=== PATIENT | male | born 1940 | race Caucasian/White ===

== ENCOUNTER 2017-10-10 07:55 | Outpatient (POV) | payer MEDICARE, OTHER, SELFPAY | END 2017-10-10 12:06 | disposition home or self-care (01) | PROVIDERS: Visit Provider Podiatrist | DX: M20.42 Other hammer toe(s) (acquired), left foot (principal); B35.1 Tinea unguium; M25.572 Pain in left ankle and joints of left foot; L84 Corns and callosities | CPT/HCPCS: 99212 ==

== ENCOUNTER → 2017-11-08 | Day surgery (SDC) | payer MEDICARE, OTHER, SELFPAY | PROVIDERS: Family Provider Family Medicine; Visit Provider Internal Medicine | DX: I25.119 Atherosclerotic heart disease of native coronary artery with unspecified angina pectoris (principal); R94.39 Abnormal result of other cardiovascular function study; R06.09 Other forms of dyspnea | CPT/HCPCS: 80048; 85025; 93458; 99152; C1725; C1760; C1769; J1644; Q9967 ==

== ENCOUNTER → 2020-09-13 07:19 | Outpatient (CLI) | payer MEDICARE, OTHER, SELFPAY ==
--- NOTE | 2020-09-13 | CA_ITS ---
APPROVED REPORT Exam: Pharmacologic Technologist: Toya Delatorre Ht: 6 ft 1 in Wt: 195 lbs BSA: 2.13 m2 HR: 59 bpm BP: 122/71 mmHg Indications: Chest pain, CAD Medical History Medications: Omeprazole,,,,, Aspirin,,,,, Vitamin D3,,,,, GlUCOsamine,,,,, Stress Test Details Test: LEXISCAN HR Resting HR: 64 bpm Max Heart Rate (APMHR): 142 bpm Max HR Achieved: 93 bpm Target HR (85% APMHR): 120 bpm % of APMHR: 65 Recovery HR: 77 bpm BP Resting BP: 122.0/71.0 mmHg Max BP: 122.0/71.0 mmHg Recovery BP: 120.0/66.0 mmHg ECG Clinical Exercise duration: 04:00 min Highest Stage Achieved: Exercise capacity: 1.0 METs Stress ECG Conclusion Resting ECG: Sinus bradycardia, otherwise normal. Symptoms: Shortness of air, malaise, mild nausea. No chest pain. Arrhythmias/Ectopy: No significant changes. ST-T Changes: No significant changes. Conclusion: Unremarkable Lexiscan stress. Myoview images reported separately. Electronically signed by : Steven Mclain, 09/14/2020 05:41:04
--- NOTE | 2020-09-13 07:19 | NM_ITS ---
APPROVED REPORT Exam: Nuclear Stress Test Indication: Chest pain, Abnormal EKG Patient Location: Outpatient Stress Tech: Toya Delatorre [place] Tech:Ofelia Chung, YOLANDAT, RT (R)(N) Ht: 6 ft 1 in Wt: 195 lbs HR: 59 bpm BP: 122/71 mmHg BSA: 2.13 m2 BMI: 25.7 History: Chest pain, Abnormal EKG Procedure: Patient received a 0.4 mg of intravenous Lexiscan, resting heart rate 59 bpm, resting blood pressure 122/71 mmHg, with Lexiscan maximum heart rate achived was 91 bpm which is Less than 85 % of the maximum predicted heart rate and blood pressure was 100/59 mmHg. With Lexiscan, patient denied any complaint of chest pain. Electrocardiogram Resting electrocardiogram showed sinus rhythm nonspecific ST-T changes, with Lexiscan there is less than 1.[address] segment depression noted from the baseline EKG. The EKG portion of the Lexiscan Myoview is nondiagnostic. Cardiac Stress and Resting SPECT Images: Cardiac Stress and Resting SPECT images were obtained using technetium 99m Myoview 30.7 mCi stress and 10.59 mCi at rest. Gated SPECT for analysis of segmental wall motion and calculation of the ejection fraction also done. Cardiac stress and resting SPECT images show uniform myocardial activity without segmental perfusion abnormality, computer derived ejection fraction is 52% with no regional wall motion abnormality, right ventricle is mildly enlarged with normal contractility. Conclusion: 1. The EKG portion of the Lexiscan Myoview is nondiagnostic. 2. No scintigraphic evidence of reversible ischemia seen, computer derived ejection fraction is 52% with no regional wall motion abnormality, right ventricle is mildly enlarged with normal contractility. 3. Normal Lexiscan Myoview study. Electronically signed by : Steven Mclain, 09/14/2020 06:01:18
--- NOTE | 2020-09-13 07:33 | CA_ITS ---
APPROVED REPORT EXAM: Comprehensive 2D, Doppler, and color-flow Echocardiogram Clarity Developer: Adilia Lujan RDCS Ht: 6 ft 1 in Wt: 201lbs BSA: 2.16 BP: 115/57 mmHg Indications: ABN EKG CAD, CP 2D Dimensions LVOT 2.28 cm (M/F) 1.5-2.5 M-Mode Dimensions RVDd 2.53 cm (0.9-2.6) LA Diam 3.09 cm (1.9-4.0) LVDd 5.32 cm (3.5-5.7) Ao Diam 3.19 cm (2.0-3.7) LVDs 3.93 cm (3.5-5.7) IVSd 0.89 cm (0.6-1.1) PWd 1.11 cm (0.6-1.1) EF (Teich) 50.80% FS 26.10% EDV (Teich) 136.50 mL ESV (Teich) 67.10 mL LV Diastology E Decel Time 170.00 (160-240 msec) E/A Ratio 0.9 MED E' 6.80 (< 7 cm/sec) E'/MED E' Ratio 10.09 (>14) LAT E' 10.90 (<10 cm/sec) E/LAT E' Ratio 6.29 (>14) Mitral Valve MV E Max Jeff. 69.00 (40-130 cm/s) MV A Velocity 78.00 (40-130 cm/s) E/A Ratio 0.88 MV Decel. Time 170.00 (160-240 ms) MV PHT 50.00 ms Left Ventricle Left atrium is mildly enlarged, left ventricle is normal size, mild concentric left ventricular hypertrophy, visually estimated ejection fraction 55% with no regional wall motion abnormality, grade 1 diastolic dysfunction seen without tissue Doppler evidence of raise left atrial pressure. Right Ventricle Right atrium and right ventricle are normal size and contractility. Aortic Valve Aortic valve is minimally thickened and fibrosed, there is no aortic stenosis or aortic insufficiency. Mitral Valve Mitral valve is grossly normal, there is mild mitral regurgitation. Tricuspid Valve Tricuspid valve is grossly normal, there is mild tricuspid regurgitation, tricuspid regurgitation jet velocity is inadequate for calculation of the right ventricular systolic pressure. Pulmonic Valve Pulmonic valve is poorly visualized. Great Vessels Aortic root is normal size. Pericardium No significant pericardial effusion noted. Conclusion 1. Mildly enlarged left atrium, normal left ventricular size, mild concentric left ventricular hypertrophy, visually estimated ejection fraction 55% with no regional wall motion abnormality, grade 1 diastolic dysfunction seen without tissue Doppler evidence of raise left atrial pressure. 2. Mild mitral and tricuspid regurgitation. 3. No significant pericardial effusion noted. Electronically signed by : Steven Mclain, 09/14/2020 06:28:40
--- NOTE | 2020-09-13 09:08 | HMH.ITSHM ---
Current Home Medications as stated by this patient Osmel Bran or circulation representative. []ASA OMEPRAZOEL GLUCOSAMINE VITAMIN D3
== END ==
PROVIDERS: PCP Family Medicine; Visit Provider Urology
DX: R07.9 Chest pain, unspecified (principal); R94.31 Abnormal electrocardiogram [ECG] [EKG]
CPT/HCPCS: 78452; 93017; 93306; A9502; J2785

== ENCOUNTER → 2020-09-19 08:40 | Outpatient (CLI) | payer MEDICARE, OTHER, SELFPAY ==
[2020-09-19 08:54] LABS: Basophils % 0.2 % (0.1-2.0); Eosinophils # 0.1 K/mm3 (0.0-0.4); Eosinophils % 0.6 % (0.1-12.0); Hematocrit 47.5 % (42.0-52.0); Hemoglobin 15.4 g/dL (14.1-18.0); Lymphocytes # 1.3 K/mm3 (0.7-4.5); Lymphocytes % 15.6 % (10-50); Mean Corpuscular HGB Conc 32.3 g/dL (31.8-35.4); Mean Corpuscular Hemoglobin 30.4 pg (27.0-31.2); Mean Corpuscular Volume 94.1 fl (80-94); Mean Platelet Volume 8.2 fl (7.4-10.4); Monocytes # 0.7 K/mm3 (0.1-1.0); Monocytes % 8.3 % (1.7-9.3); Neutrophils # 6.1 K/mm3 (1.8-7.8); Neutrophils % 75.2 % (37.0-80.0); Platelet Count 170 K/mm3 (142-424); Red Blood Count 5.05 M/mm3 (4.60-6.20); Red Cell Distribution Width 13.7 % (11.5-17.5); White Blood Count 8.1 K/mm3 (4.8-10.8)
[2020-09-19 09:20] LABS: Chloride 103 mmol/L (98-107); Potassium 4.8 mmoL/L (3.5-5.1); Sodium 138 mmol/L (136-145)
[2020-09-19 09:22] LABS: Alanine Aminotransferase 19 U/L (12-78); Anion Gap 10.8 mEq/L (5-15); Aspartate Amino Transferase 23 U/L (17-59); Bilirubin,Unconjugated 0.5 mg/dL (0.0-1.1); Blood Urea Nitrogen 13 mg/dl (9-20); Carbon Dioxide 29 mmol/L (22.0-30.0); Estimated Glomerular Filt Rate 65 ml/min (>60); GFR (African American) 78 ML/MIN (>60)
[2020-09-19 09:23] LABS: Albumin Level 4.5 g/dl (3.5-5.0); Alkaline Phosphatase 67 U/L (38-126); Bilirubin,Direct 0.1 mg/dl (0.0-0.4); Bilirubin,Indirect 0.5 mg/dL (0.0-0.9); Bilirubin,Total 0.6 mg/dl (0.2-1.3); Calcium 9.8 mg/dl (8.4-10.2); Cholesterol 248 mg/dl (140-200); Glucose 108 mg/dl (74-100); HDL Cholesterol 50 mg/dl (40-60); Total Protein,Serum 7.3 g/dl (6.3-8.2); Triglycerides 175 mg/dl (30-150); VLDL Cholesterol 35 mg/dL (0-40)
[2020-09-19 09:34] LABS: Direct LDL Cholesterol 155.25 mg/dL (100-129)
== END ==
PROVIDERS: Visit Provider Urology
DX: R07.9 Chest pain, unspecified (principal); R94.31 Abnormal electrocardiogram [ECG] [EKG]
CPT/HCPCS: 36415; 80048; 80061; 80076; 85025

== ENCOUNTER → 2022-03-06 09:29 | Outpatient (CLI) | payer MEDICARE, OTHER, SELFPAY | PROVIDERS: Visit Provider Internal Medicine Gastroenterology | DX: Z01.812 Encounter for preprocedural laboratory examination (principal); Z11.52 Encounter for screening for COVID-19; R13.10 Dysphagia, unspecified | CPT/HCPCS: C9803; U0003; U0005 ==

== ENCOUNTER 2022-03-08 08:05 | Day surgery (SDC) | payer MEDICARE, OTHER, SELFPAY ==
[2022-03-01 11:58] VITALS: BMI 25.0
[2022-03-08 08:26] VITALS: BP 150/80; PULSE 63; RESP 18; TEMP 36.4; O2SAT 93
[2022-03-08 09:03] VITALS: O2SAT 93
--- NOTE | 2022-03-08 09:13 | HMH.SCOPE ---
- Procedure: Date: 03/08/22 Patient Date of :: 1940 Procedure Performed:: EGD and dilation Indications:: Dysphagia Performing Provider:: Margarita Hutchins MD Referring Provider:: Yao Garcia MD Sedation:: Propofol Procedure:: The gastroscope was gently passed through the incisoral orifice into the oral cavity and under direct visualization the esophagus was intubated. The endoscope was passed down the esophagus, through the stomach, and into the duodenum. Color, texture, mucosa, and anatomy of the esophagus, stomach, and duodenum were carefully examined with the scope. Findings:: Oropharynx: normal Esophagus: normal, no visual evidence of obstruction or stricture EG Junction: intact at 40 cm Cardia: normal Fundus: normal Body: normal Antrum: normal Duodenal bulb: normal Duodenum (second and third portion): normal Dysphagia treated with several passes of a 58F bougie dilator Impression: Symptomatic dysphagia treated with bougie dilation Recommendations:: Repeat dilation in about 3 years or so, sooner if clinically indicated. Complications:: None Estimated blood obtained (mL): 0
[2022-03-08 09:15] VITALS: BP 124/77; PULSE 79; RESP 18; TEMP 36.2; O2SAT 92
[2022-03-08 09:25] VITALS: BP 122/76; PULSE 72; RESP 16; O2SAT 98
[2022-03-08 09:35] VITALS: BP 130/77; PULSE 71; RESP 16; O2SAT 97
[2022-03-08 09:46] VITALS: BP 138/76; PULSE 63; RESP 16; TEMP 36.2; O2SAT 98
--- NOTE | 2022-03-08 11:50 | HMH.ANESCL ---
[facility] Anesthesia Checklist - Patient Identification Patient Identification: Arm Band, Verbal (Name & ) - Structural Data Admitted From: Home Planned Operative Procedure/s: Colonoscopy Consent for Planned Operative Procedure(s) Verified: Yes Verified Documents: Surgical Consent - NPO Status Verified Time NPO: 04:30 - Airway Assessment C-Spine Mobility Assessed: Yes TMJ Mobility Assessed: Yes - Neurological Assessment Level of Consciousness: Awake, Alert, Appropriate - Anesthesia Plan Anesthesia Risk discussed: Yes ASA Class: II Anesthesia Type: MAC [facility] History I have reviewed the patient's past medical history: Yes Medical History: Reports:: Cancer (skin), Coronary Artery Disease Denies:: Diabetes Mellitus Type 1, Diabetes Mellitus Type 2, Internal Pacemaker, MRSA, Seizures *Have you ever received a pneumonia vaccine?: Yes *Have you received a flu vaccine this season?: Yes Anesthesia experience/problems:: none Other Surgeries: Yes: Cardiac Catheterization, Skin Cancer Excision, Other. No: Pacemaker Amputation: No Fractures: No - *Social History Last grade of school completed: High school graduate Smoking Status: Never smoker Alcohol Intake: current Alcohol Intake Frequency:: holidays/special occasions only Substance Use Type: denies use *Occupational Status:: retired Housing: house Household Members: spouse *Travel in the last 8 weeks: None Family Hx:: Diabetes
== END 2022-03-08 09:55 | disposition home or self-care (01) ==
LOC: OUTP 08:07
PROVIDERS: PCP Family Medicine; Visit Provider Internal Medicine Gastroenterology
PROC: 0DJ08ZZ Inspection of Upper Intestinal Tract, Via Natural or Artificial Opening Endoscopic (ICD-10-PCS; CPT 43235; principal; 2022-03-08 09:00)
DX: R13.10 Dysphagia, unspecified (principal); I25.10 Atherosclerotic heart disease of native coronary artery without angina pectoris; Z85.828 Personal history of other malignant neoplasm of skin; Z83.3 Family history of diabetes mellitus; Z79.899 Other long term (current) drug therapy
CPT/HCPCS: 43249

== ENCOUNTER 2022-04-18 07:31 | Outpatient (RCR) | payer MEDICARE, OTHER, SELFPAY ==
--- NOTE | 2022-04-18 08:31 | HMH.SLDYSPHA ---
Speech & Language Evaluation Speech/Language Dysphagia Evaluation Start: 04/18/22 08:19 Freq: ONCE Status: Active Protocol: Document 04/18/22 08:19 ARIELDAMIAN (Rec: 04/18/22 08:31 LEVI [id number]) Dysphagia Assess/Goals/Plan Assessment Date of Evaluation: 04/18/22 Evaluation Type Initial Certification Assessment/Problems Sensation of food sticking Does Patient Qualify for Service No Qualify/Failure Comment Based on the results of the dysphagia evaluation, pt does not require skilled ST services at this time. Recommendations PHYSICIAN CERTIFICATION: The specified therapy services are required, authorized, and reviewed every 30 days. Diet Recommendations Normal Liquid Type Recommendations Normal/Thin SL Swallow Guidelines Alt bite w/sip thru meal Dysphagia Swallow Precautions/Strategies Sitting Upright (90 deg),Small Bites and Sips,Alternate Liquids/Solids Place Food on Either side of Mouth Additional Consults Recommended Other Comment GI Plan Pt/Guardian verbally ack understanding Yes of dx/prognosis/goals Pt/Guardian verbally ack understanding Yes of/consent to tx prog G -code Required No Education Instructions provided Dysphagia evaluation results discussed with pt who expressed understanding. Pt/Caregiver able to recall information Able to recall/restate Reinforcement needed No Speech & Language HPI History Present Illness Description of Patient Problem Pt is a 81 y.o male c/o food sticking. He reports he had an esophageal dilation done approximately 2-3 weeks ago and that his symptoms improved for 2-3 days before returning . He reports this has been going on for approximately 1 year and has progressively gotten worse. He reports he has more difficulty with dry foods i.e. bread and that he needs to use a liquid wash with each bolus. At times, he is unable to clear material and it will come back up. Denies any history of GERD or CVA. Oral mechanism exam is WFL. Rehab Services Assessed Speech therapy Is this evaluation r/t stroke?
== END 2022-04-18 07:35 | disposition home or self-care (01) ==
LOC: ST 07:31
PROVIDERS: PCP Family Medicine; Visit Provider Family Medicine
DX: R13.10 Dysphagia, unspecified (principal)
CPT/HCPCS: 92610

== ENCOUNTER → 2022-07-24 08:47 | Outpatient (CLI) | payer MEDICARE, OTHER, SELFPAY | PROVIDERS: PCP Family Medicine; Visit Provider Internal Medicine Gastroenterology | DX: U07.1 COVID-19 | CPT/HCPCS: C9803; U0003; U0005 ==

== ENCOUNTER 2022-09-06 07:48 | Day surgery (SDC) | payer MEDICARE, OTHER, SELFPAY ==
[2022-08-30 09:45] VITALS: BMI 24.4
[2022-09-06 07:58] VITALS: BP 159/60; PULSE 53; RESP 18; TEMP 36.1; O2SAT 99
[2022-09-06 09:00] VITALS: O2SAT 99
--- NOTE | 2022-09-06 09:10 | HMH.SCOPE ---
Procedure: Date: 09/06/22 Patient Date of :: 1940 Procedure Performed:: EGD & biopsies and bougie dilation Indications:: Dysphagia Performing Provider:: Margarita Hutchins MD Referring Provider:: Rolan Garcia MD Sedation:: Propofol Procedure:: The gastroscope was gently passed through the incisoral orifice into the oral cavity and under direct visualization the esophagus was intubated. The endoscope was passed down the esophagus, through the stomach, and into the duodenum. Color, texture, mucosa, and anatomy of the esophagus, stomach, and duodenum were carefully examined with the scope. Findings:: Oropharynx: normal Esophagus: Multiple whitish plaques noted in upper esophagus, biopsied. Bougie dilation with 58F dilator performed. EG Junction: intact at 40 cm Cardia: normal Fundus: normal Body: normal Antrum: normal Duodenal bulb: normal Duodenum (second and third portion): normal Impression: Esophageal candidiasis Specimens:: Esophagus Recommendations:: Therapy for esophageal candidiasis Repeat dilation in about THREE years or so Complications:: None Estimated blood obtained (mL): 0
[2022-09-06 09:11] VITALS: BP 133/80; PULSE 74; RESP 16; TEMP 36.3; O2SAT 100
[2022-09-06 09:21] VITALS: BP 135/81; PULSE 63; RESP 16; O2SAT 98
--- NOTE | 2022-09-06 09:22 | EXP.ANES.CKL ---
[facility] Medical History Fatigue Skin cancer Surgical History History of back surgery History of tonsillectomy Family History Other Family history of cancer Family history of diabetes mellitus type II Social History Smoking Status: Never smoker alcohol intake: current substance use type: denies use current occupational status: retired Travel in the last 8 weeks: None household members: spouse housing: house marital status: current occupational exposures/hazards: No caffeine: Yes special emir needs: No agree to transfusion: No do you feel safe at home: Yes victim of physical abuse: No victim of emotional abuse: No victim of sexual abuse: No would you like helpful sources: No [facility] Anesthesia Checklist Patient Identification Patient Identification: Arm Band and Verbal (Name & ) Structural Data Admitted From: Home Planned Operative Procedure/s: EGD Consent for Planned Operative Procedure(s) Verified: Yes Verified Documents: Surgical Consent NPO Status Verified Time NPO: 00:00 Airway Assessment C-Spine Mobility Assessed: Yes TMJ Mobility Assessed: Yes Dentition: Partials Neurological Assessment Level of Consciousness: Awake, Alert and Appropriate Anesthesia Plan Anesthesia Risk discussed: Yes ASA Class: II Anesthesia Type: MAC
[2022-09-06 09:31] VITALS: BP 117/74; PULSE 62; RESP 16; O2SAT 98
[2022-09-06 09:41] VITALS: BP 124/78; PULSE 63; RESP 16; TEMP 36.3; O2SAT 100
== END 2022-09-06 09:41 | disposition home or self-care (01) ==
PROVIDERS: PCP Family Medicine; Visit Provider Internal Medicine Gastroenterology
PROC: 0DJ08ZZ Inspection of Upper Intestinal Tract, Via Natural or Artificial Opening Endoscopic (ICD-10-PCS; CPT 43235; principal; 2022-09-06 09:00)
DX: B37.81 Candidal esophagitis (principal); R13.10 Dysphagia, unspecified; Z79.899 Other long term (current) drug therapy
CPT/HCPCS: 43239; 43248; 88305; 88312

== ENCOUNTER → 2023-02-01 12:23 | Outpatient (CLI) | payer MEDICARE, OTHER, SELFPAY ==
--- NOTE | 2023-02-01 12:34 | CT_ITS ---
FINAL REPORT TECHNIQUE: Pre and postcontrast axial imaging of the chest was obtained. Reformatted images were also obtained and reviewed. This study was performed with techniques to keep radiation doses as low as reasonably achievable (ALARA). Individualized dose reduction techniques using automated exposure control or adjustment of mA and/or kV according to the patient's size were employed. CLINICAL HISTORY: CHEST PAIN,ESOPHAGEAL DYSPHAGIA FINDINGS: Mediastinal vasculature is well opacified. There is a large, lobular, right paratracheal osman mass measuring 5.4 cm in AP and transverse dimension. A noncalcified nodule is seen in the posterior right lower lobe measuring 1.2 cm on image 44 of series 4. There is no pleural or pericardial effusion. There is no pneumothorax. There are several small hypervascular foci in the liver measuring less than 1 cm in greatest dimension. IMPRESSION: 1.2 cm right lower lung noncalcified nodule. 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 Small hypervascular foci in the liver. Recommend PET-CT for further evaluation. Reviewed, Interpreted and Dictated by Mark Hyman MD Transcribed by Edilma Lizarraga Authenticated and [facility]
[2023-02-01 12:48] LABS: Blood Urea Nitrogen 18 mg/dl (9-20); Estimated Glomerular Filt Rate 64 ml/min (>60); GFR (African American) 78 ML/MIN (>60)
== END ==
PROVIDERS: PCP Family Medicine; Visit Provider Family Medicine
DX: R07.9 Chest pain, unspecified (principal); R13.14 Dysphagia, pharyngoesophageal phase
CPT/HCPCS: 36415; 71270; 82565; 84520; Q9967

== ENCOUNTER → 2023-02-08 11:30 | Outpatient (CLI) | payer MEDICARE, OTHER, SELFPAY | PROVIDERS: PCP Family Medicine; Visit Provider Nurse Practitioner Family | DX: E78.2 Mixed hyperlipidemia (principal); I10 Essential (primary) hypertension; I25.10 Atherosclerotic heart disease of native coronary artery without angina pectoris; I51.9 Heart disease, unspecified | CPT/HCPCS: 78452; 93017; 93306; A9502; J2785 ==

== ENCOUNTER 2023-02-15 09:26 | Day surgery (SDC) | payer MEDICARE, OTHER, SELFPAY ==
[2023-02-12 13:59] VITALS: BMI 26.4
[2023-02-15] VITALS (11 sets, daily range): BP systolic 100–137; BP diastolic 61–77; PULSE 56–76; RESP 13–18; TEMP 36.1–43; O2SAT 93–99
--- NOTE | 2023-02-15 11:18 | EXP.ANES.CKL ---
[facility] Disclaimer: The information contained in this section may have been updated after the patient was seen, as this information can be updated by other users. Medical History Atypical chest pain Chest pain Coronary artery disease Diastolic dysfunction Fatigue Heart murmur History of cataract History of COVID-19 History of gastroesophageal reflux (GERD) Lung mass Skin cancer Surgical History History of back surgery History of tonsillectomy Family History Other Family history of cancer Family history of diabetes mellitus type II Social History Smoking Status: Never smoker alcohol intake: never substance use type: denies use current occupational status: retired Travel in the last 8 weeks: None household members: spouse housing: house marital status: current occupational exposures/hazards: No caffeine: Yes special emir needs: No agree to transfusion: No do you feel safe at home: Yes victim of physical abuse: No victim of emotional abuse: No victim of sexual abuse: No would you like helpful sources: No [facility] Anesthesia Checklist Patient Identification Patient Identification: Arm Band and Verbal (Name & ) Structural Data Admitted From: Home Planned Operative Procedure/s: EBUS Consent for Planned Operative Procedure(s) Verified: Yes Verified Documents: Surgical Consent NPO Status Verified Time NPO: 00:00 Additional verifications Anesthesia Reactions: No Hx Blood Transfusions: No Blood Transfusion Reaction: No Airway Assessment C-Spine Mobility Assessed: Yes TMJ Mobility Assessed: Yes Dentition: Partials Neurological Assessment Level of Consciousness: Awake, Alert and Appropriate Anesthesia Plan Anesthesia Risk discussed: Yes ASA Class: II Anesthesia Type: General
--- NOTE | 2023-02-15 11:57 | EXP.ANES.CKL ---
[facility] Disclaimer: The information contained in this section may have been updated after the patient was seen, as this information can be updated by other users. Medical History Atypical chest pain Chest pain Coronary artery disease Diastolic dysfunction Fatigue Heart murmur History of cataract History of COVID-19 History of gastroesophageal reflux (GERD) Lung mass Skin cancer Surgical History History of back surgery History of tonsillectomy Family History Other Family history of cancer Family history of diabetes mellitus type II Social History Smoking Status: Never smoker alcohol intake: never substance use type: denies use current occupational status: retired Travel in the last 8 weeks: None household members: spouse housing: house marital status: current occupational exposures/hazards: No caffeine: Yes special emir needs: No agree to transfusion: No do you feel safe at home: Yes victim of physical abuse: No victim of emotional abuse: No victim of sexual abuse: No would you like helpful sources: No [facility] Anesthesia Checklist Patient Identification Patient Identification: Arm Band and Verbal (Name & ) Structural Data Admitted From: Home Planned Operative Procedure/s: EBUS Consent for Planned Operative Procedure(s) Verified: Yes Verified Documents: Surgical Consent NPO Status Verified Time NPO: 00:00 Additional verifications Anesthesia Reactions: No Hx Blood Transfusions: No Blood Transfusion Reaction: No Airway Assessment C-Spine Mobility Assessed: Yes TMJ Mobility Assessed: Yes Dentition: Partials Neurological Assessment Level of Consciousness: Awake, Alert and Appropriate Anesthesia Plan Anesthesia Risk discussed: Yes ASA Class: II Anesthesia Type: General
--- NOTE | 2023-02-15 12:21 | EXP.BRONCH.N ---
Procedure: Date: 02/15/23 Patient Date of :: 1940 Procedure Performed:: Bronchoscopy airway examination, endobronchial ultrasound-guided fine-needle aspirate Indications:: Lymphadenopathy Performing Provider:: Leelee Leigh MD Referring Provider:: Dr:Yao Wheeler MD Sedation:: General anesthesia Procedure:: Bronchoscopy airway examination, endobronchial ultrasound-guided fine-needle aspirate: A clean EBUS bronchoscopy was advanced the ET tube and lymph node surveillance performed. Patient noted to have lymphadenopathy at station 4R. No other enlarged lymph node stations noted. Fine-needle aspiration was performed at the noted lymph node station with total of 7 passes performed, pathology at bedside confirmed adequate lymphoid tissue. Rapid onsite examination concerning for non-small cell lung cancer, will follow with final pathology result EBUS bronchoscopy was retracted and A clean DIAGNOSTIC bronchoscopy was advanced through the ET tube and airways were examined up to subsegmental bronchi. Airways appeared grossly normal, no evidence of mucoid secretions, mucous plugging active bleeding/old blood clots noted. Patient tolerated the procedure with no immediate acute complications. We will follow the patient in pulmonary clinic in 7 to 10 days. Findings:: Please see the procedure note Recommendations:: Please see the procedure note. Follow in pulmonary clinic in 5 to 7 days postprocedure Complications:: No acute immediate complication Estimated blood obtained (mL): 5
--- NOTE | 2023-02-15 12:32 | EXP.ANES.I ---
[facility] Anesthesia Record Part I Anesthesia Record I Intake, IV Amount: 800 Estimated blood loss (mL): 0 Urine output (mL): 0 Blood Pressure: 133/71 SaO2: 95 Pulse Rate: 76 Respiratory Rate: 13 Temperature: 97.2 F Patient is:: Drowsy and Oral/Nasal airway Stable to PACU at:: 12:25
--- NOTE | 2023-02-15 12:54 | XR_ITS ---
FINAL REPORT CLINICAL HISTORY: Bronchoscopy COMPARISON: 10/11/2017 FINDINGS: SINGLE-VIEW CHEST The heart size is normal. The mediastinum is normal. The lungs are clear. There are surgical clips in the left axilla. There is no pneumothorax. IMPRESSION: No acute cardiopulmonary process. Reviewed, Interpreted and Dictated by Mark Hyman MD Transcribed by Nicci Reno Authenticated and [facility]
--- NOTE | 2023-02-18 07:24 | EXP.ANES.II ---
[facility] Anesthesia Record Part II Anesthesia Record Part II Discharge Time: 12:55 Destination: Surgical Day Care (OP Surgery) PACU nurse assessment reviewed?: Yes Patient Condition:: Good Anesthesia Complications:: None Swallowing reflex intact?: Yes Cyanosis?: No Blood Pressure: 123/72 Pulse Rate: 73 Temperature: 97.2 F Mental Status: Alert & Oriented Pain level:: 0 Nausea and/or vomitting:: None Intake, IV Amount: 0
[2023-02-18 07:25] VITALS: BP 123/72; PULSE 73; TEMP 36.2
== END 2023-02-15 13:38 | disposition home or self-care (01) ==
PROVIDERS: PCP Family Medicine; Visit Provider Internal Medicine Pulmonary Disease
PROC: (CPT 31652; principal; 2023-02-15 10:45)
DX: R93.89 Abnormal findings on diagnostic imaging of other specified body structures (principal); R91.8 Other nonspecific abnormal finding of lung field; I10 Essential (primary) hypertension; E78.5 Hyperlipidemia, unspecified; I25.10 Atherosclerotic heart disease of native coronary artery without angina pectoris; Z87.891 Personal history of nicotine dependence; R59.1 Generalized enlarged lymph nodes
CPT/HCPCS: 31652; 71045; 88172; 88173; 88305; 88342; J2405

== ENCOUNTER 2023-02-19 10:23 | Day surgery (SDC) | payer MEDICARE, OTHER, SELFPAY ==
[2023-02-19] VITALS (12 sets, daily range): BP systolic 87–120; BP diastolic 49–69; PULSE 49–67; RESP 16–18; TEMP 36.9; O2SAT 92–100; BMI 25.9
--- NOTE | 2023-02-19 10:18 | IR_ITS ---
APPROVED REPORT PROCEDURES Selective coronary angiogram INDICATION Worsening angina pectoris Informed consent was obtained prior to the procedure. COMPLICATIONS None Estimated Blood Loss: Less than 10 ml TECHNIQUE One percent lidocaine used to anesthetize the right anterior aspect of the wrist. The right radial artery was accessed via the Seldinger technique. A 6 German sheath was placed in the right radial artery. 150 mg magnesium sulfate, 800 mcg of nitroglycerin, 1mg Lidocaine and 5000 U Heparin were given through the arterial sheath. The papa catheter was also used to perform left heart catheterization, left ventriculogram and selective coronary angiogram. At the end of the procedure the sheath was removed good hemostasis was achieved using Traclet band, patient was transferred to the postop holding area in stable condition. ANGIOGRAPHIC RESULTS The left main artery Has a distal consent concentric 30 to 40% stenosis The left anterior descending artery Has proximal 10 to 20% stenosis with a mid vessel 40% stenosis The circumflex artery Massively large and dominant with mild 10% luminal regularities The right coronary artery Vestigial normal The HULL ventriculogram reveals Not performed The left ventricular end-diastolic pressure Not measured IMPRESSION Moderate distal left main disease as described above Moderate mid LAD disease as described above PLAN 1. Aggressive risk factor modification 2. It is not appropriate to consider coronary artery bypass surgery or stenting at this time. If and when the left main artery advances coronary artery bypass surgery will be ideal 3. LDL less than 55 to be achieved with high intensity statin 4. Maximize antianginal medications Electronically signed by : Tucker Jalloh MD 02/19/2023 13:33:24
[2023-02-19 11:02] LABS: Basophils % 0.5 % (0.1-2.0); Eosinophils % 0.4 % (0.1-12.0); Hematocrit 45.3 % (42.0-52.0); Hemoglobin 14.6 g/dL (14.1-18.0); Lymphocytes # 1.4 K/mm3 (0.7-4.5); Lymphocytes % 15.7 % (10-50); Mean Corpuscular HGB Conc 32.2 g/dL (31.8-35.4); Mean Corpuscular Volume 93.1 fl (80-94); Mean Platelet Volume 8.2 fl (7.4-10.4); Monocytes # 0.7 K/mm3 (0.1-1.0); Monocytes % 8.4 % (1.7-9.3); Neutrophils # 6.6 K/mm3 (1.8-7.8); Neutrophils % 75.1 % (37.0-80.0); Platelet Count 191 K/mm3 (142-424); Red Blood Count 4.86 M/mm3 (4.60-6.20); Red Cell Distribution Width 13.5 % (11.5-17.5); White Blood Count 8.8 K/mm3 (4.8-10.8)
[2023-02-19 11:05] LABS: Chloride 101 mmol/L (98-107); Potassium 4.6 mmoL/L (3.5-5.1); Sodium 137 mmol/L (136-145)
[2023-02-19 11:07] LABS: Blood Urea Nitrogen 17 mg/dl (9-20); Creatinine Clearance Estimated 67 mL/min (50-200); Estimated Glomerular Filt Rate 64 ml/min (>60); GFR (African American) 78 ML/MIN (>60)
[2023-02-19 11:08] LABS: Anion Gap 11.6 mEq/L (5-15); Calcium 9.2 mg/dl (8.4-10.2); Carbon Dioxide 29 mmol/L (22.0-30.0); Glucose 95 mg/dl (74-100)
== END 2023-02-19 16:43 | disposition home or self-care (01) ==
PROVIDERS: PCP Family Medicine; Visit Provider Internal Medicine
DX: R07.9 Chest pain, unspecified (principal); R94.39 Abnormal result of other cardiovascular function study; I25.118 Atherosclerotic heart disease of native coronary artery with other forms of angina pectoris; Z86.16 Personal history of COVID-19; R94.31 Abnormal electrocardiogram [ECG] [EKG]; E78.5 Hyperlipidemia, unspecified; I10 Essential (primary) hypertension; Z79.899 Other long term (current) drug therapy
CPT/HCPCS: 80048; 85025; 93454; 99152; C1725; C1769; J1644; Q9967

== ENCOUNTER → 2023-02-25 08:41 | Outpatient (CLI) | payer MEDICARE, OTHER, SELFPAY ==
--- NOTE | 2023-02-25 08:41 | MR_ITS ---
FINAL REPORT CLINICAL HISTORY: Staging. FINDINGS: Multiplanar MR imaging of the brain was performed without and with contrast. There are multiple foci of increased T2 signal consistent with moderate chronic ischemic/gliotic change. There is no evidence of intracranial hemorrhage or mass. No abnormal extra-axial fluid collection is seen. The ventricular size is within normal limits. There is no evidence of shift of the midline structures. The posterior fossa and brainstem have an unremarkable appearance. No area of abnormal restricted diffusion is identified. On postcontrast imaging there is a right periventricular venous anomaly. Normal major vessel vascular flow voids are noted. IMPRESSION: No acute intracranial abnormality identified. Moderate chronic ischemic/gliotic change. Reviewed, Interpreted and Dictated by Hitesh Caruso III, MD Transcribed by Amilcar Bynum Authenticated and [facility]
== END ==
PROVIDERS: PCP Family Medicine; Visit Provider Internal Medicine Pulmonary Disease
DX: C78.00 Secondary malignant neoplasm of unspecified lung (principal)
CPT/HCPCS: 70553; A9576

== ENCOUNTER 2023-03-04 08:47 | Outpatient (CLI) | payer MEDICARE, OTHER, SELFPAY ==
[2023-03-04 08:51] VITALS: BMI 25.7
[2023-03-04 09:14] LABS: Basophils % 0.4 % (0.1-2.0); Eosinophils % 0.4 % (0.1-12.0); Hematocrit 44.3 % (42.0-52.0); Hemoglobin 14.4 g/dL (14.1-18.0); Lymphocytes # 0.9 K/mm3 (0.7-4.5); Lymphocytes % 13.7 % (10-50); Mean Corpuscular HGB Conc 32.6 g/dL (31.8-35.4); Mean Corpuscular Hemoglobin 30.4 pg (27.0-31.2); Mean Corpuscular Volume 93.4 fl (80-94); Mean Platelet Volume 8.5 fl (7.4-10.4); Monocytes # 0.6 K/mm3 (0.1-1.0); Monocytes % 8.9 % (1.7-9.3); Neutrophils % 76.7 % (37.0-80.0); Platelet Count 158 K/mm3 (142-424); Red Blood Count 4.75 M/mm3 (4.60-6.20); Red Cell Distribution Width 13.4 % (11.5-17.5); White Blood Count 6.6 K/mm3 (4.8-10.8)
[2023-03-04 09:22] LABS: Chloride 103 mmol/L (98-107); Potassium 4.4 mmoL/L (3.5-5.1); Sodium 138 mmol/L (136-145)
[2023-03-04 09:24] LABS: Alanine Aminotransferase 18 U/L (12-78); Aspartate Amino Transferase 24 U/L (17-59); Blood Urea Nitrogen 15 mg/dl (9-20); Creatinine Clearance Estimated 74 mL/min (50-200); Estimated Glomerular Filt Rate 72 ml/min (>60); GFR (African American) 87 ML/MIN (>60)
[2023-03-04 09:25] LABS: Albumin Level 4.2 g/dl (3.5-5.0); Albumin/Globulin Ratio 1.6 (1.1-1.8); Alkaline Phosphatase 61 U/L (38-126); Anion Gap 9.4 mEq/L (5-15); Bilirubin,Total 0.6 mg/dl (0.2-1.3); Calcium 9.2 mg/dl (8.4-10.2); Carbon Dioxide 30 mmol/L (22.0-30.0); Globulin 2.7 g/dL (1.3-3.2); Glucose 93 mg/dl (74-100); Total Protein,Serum 6.9 g/dl (6.3-8.2)
[2023-03-04 09:56] LABS: Thyroid Stimulating Hormone 2.62 uIU/mL (0.465-4.68)
[2023-03-04 10:00] VITALS: BP 109/55; PULSE 59; RESP 18; TEMP 36.9; O2SAT 97
[2023-03-04 10:15] VITALS: BP 107/58; PULSE 63; RESP 18; O2SAT 98
[2023-03-04 10:30] VITALS: BP 105/61; PULSE 62; RESP 18
[2023-03-05 17:14] LABS: Adrenocorticotropic Hormone 15.3 pg/mL (7.2-63.3)
== END 2023-03-04 10:40 | disposition home or self-care (01) ==
LOC: INF 08:48
PROVIDERS: PCP Family Medicine; Visit Provider Internal Medicine Medical Oncology
DX: C43.9 Malignant melanoma of skin, unspecified (principal); C78.00 Secondary malignant neoplasm of unspecified lung; Z79.899 Other long term (current) drug therapy; Z51.11 Encounter for antineoplastic chemotherapy
CPT/HCPCS: 80053; 82024; 82533; 84443; 85025; 96413; J9271

== ENCOUNTER 2023-03-28 08:24 | Outpatient (CLI) | payer MEDICARE, OTHER, SELFPAY ==
[2023-03-28 08:28] VITALS: BMI 26.2
[2023-03-28 08:54] LABS: Basophils % 0.4 % (0.1-2.0); Eosinophils % 0.6 % (0.1-12.0); Hematocrit 43.8 % (42.0-52.0); Hemoglobin 14.5 g/dL (14.1-18.0); Lymphocytes # 0.9 K/mm3 (0.7-4.5); Lymphocytes % 13.7 % (10-50); Mean Corpuscular HGB Conc 33.1 g/dL (31.8-35.4); Mean Corpuscular Hemoglobin 30.8 pg (27.0-31.2); Mean Corpuscular Volume 93.1 fl (80-94); Mean Platelet Volume 8.2 fl (7.4-10.4); Monocytes # 0.6 K/mm3 (0.1-1.0); Monocytes % 9.2 % (1.7-9.3); Neutrophils # 5.1 K/mm3 (1.8-7.8); Neutrophils % 76.1 % (37.0-80.0); Platelet Count 174 K/mm3 (142-424); Red Blood Count 4.71 M/mm3 (4.60-6.20); Red Cell Distribution Width 13.3 % (11.5-17.5); White Blood Count 6.6 K/mm3 (4.8-10.8)
[2023-03-28 09:05] LABS: Alanine Aminotransferase 24 U/L (12-78); Albumin Level 4.5 g/dl (3.5-5.0); Albumin/Globulin Ratio 1.6 (1.1-1.8); Alkaline Phosphatase 70 U/L (38-126); Anion Gap 12.7 mEq/L (5-15); Aspartate Amino Transferase 35 U/L (17-59); Bilirubin,Total 0.9 mg/dl (0.2-1.3); Blood Urea Nitrogen 14 mg/dl (9-20); Calcium 9.2 mg/dl (8.4-10.2); Carbon Dioxide 30 mmol/L (22.0-30.0); Chloride 99 mmol/L (98-107); Creatinine Clearance Estimated 68 mL/min (50-200); Estimated Glomerular Filt Rate 64 ml/min (>60); GFR (African American) 78 ML/MIN (>60); Globulin 2.9 g/dL (1.3-3.2); Glucose 96 mg/dl (74-100); Potassium 4.7 mmoL/L (3.5-5.1); Sodium 137 mmol/L (136-145); Total Protein,Serum 7.4 g/dl (6.3-8.2)
[2023-03-28 09:59] VITALS: BP 109/69; PULSE 58; RESP 20; TEMP 36.6; O2SAT 99
[2023-03-28 10:44] VITALS: BP 107/56; PULSE 56; RESP 20; O2SAT 99
== END 2023-03-28 10:55 | disposition home or self-care (01) ==
LOC: INF 08:24
PROVIDERS: PCP Family Medicine; Visit Provider Internal Medicine Medical Oncology
DX: C78.01 Secondary malignant neoplasm of right lung (principal); Z79.899 Other long term (current) drug therapy; Z85.820 Personal history of malignant melanoma of skin
CPT/HCPCS: 80053; 82024; 82533; 84443; 85025; 96413; J9271

== ENCOUNTER 2023-04-18 08:21 | Outpatient (CLI) | payer MEDICARE, OTHER, SELFPAY ==
[2023-04-18 08:25] VITALS: BMI 25.9
[2023-04-18 08:41] LABS: Basophils % 0.4 % (0.1-2.0); Eosinophils % 0.7 % (0.1-12.0); Hematocrit 44.5 % (42.0-52.0); Hemoglobin 14.1 g/dL (14.1-18.0); Lymphocytes % 18.3 % (10-50); Mean Corpuscular HGB Conc 31.7 g/dL (31.8-35.4); Mean Corpuscular Hemoglobin 29.7 pg (27.0-31.2); Mean Corpuscular Volume 93.6 fl (80-94); Mean Platelet Volume 8.5 fl (7.4-10.4); Monocytes # 0.6 K/mm3 (0.1-1.0); Neutrophils # 3.7 K/mm3 (1.8-7.8); Neutrophils % 69.6 % (37.0-80.0); Platelet Count 149 K/mm3 (142-424); Red Blood Count 4.75 M/mm3 (4.60-6.20); Red Cell Distribution Width 13.2 % (11.5-17.5); White Blood Count 5.3 K/mm3 (4.8-10.8)
[2023-04-18 08:48] LABS: Chloride 102 mmol/L (98-107); Potassium 4.6 mmoL/L (3.5-5.1); Sodium 138 mmol/L (136-145)
[2023-04-18 08:51] LABS: Alanine Aminotransferase 22 U/L (12-78); Albumin Level 4.4 g/dl (3.5-5.0); Albumin/Globulin Ratio 1.6 (1.1-1.8); Alkaline Phosphatase 61 U/L (38-126); Anion Gap 9.6 mEq/L (5-15); Aspartate Amino Transferase 29 U/L (17-59); Bilirubin,Total 0.7 mg/dl (0.2-1.3); Blood Urea Nitrogen 15 mg/dl (9-20); Calcium 9.3 mg/dl (8.4-10.2); Carbon Dioxide 31 mmol/L (22.0-30.0); Creatinine Clearance Estimated 68 mL/min (50-200); Estimated Glomerular Filt Rate 64 ml/min (>60); GFR (African American) 78 ML/MIN (>60); Globulin 2.8 g/dL (1.3-3.2); Glucose 94 mg/dl (74-100); Total Protein,Serum 7.2 g/dl (6.3-8.2)
[2023-04-18 09:22] LABS: Thyroid Stimulating Hormone 1.66 uIU/mL (0.465-4.68)
[2023-04-18 09:52] VITALS: BP 147/69; PULSE 77; RESP 18; TEMP 36.6; O2SAT 98
[2023-04-18 10:10] VITALS: BP 134/70; PULSE 67
[2023-04-18 10:25] VITALS: BP 124/71; PULSE 64
[2023-04-18 10:32] VITALS: BP 125/60; PULSE 60; RESP 18; TEMP 36.8; O2SAT 98
[2023-04-19 14:22] LABS: Adrenocorticotropic Hormone 22.5 pg/mL (7.2-63.3)
== END 2023-04-18 10:33 | disposition home or self-care (01) ==
LOC: INF 08:22
PROVIDERS: PCP Family Medicine; Visit Provider Internal Medicine Medical Oncology
DX: Z51.11 Encounter for antineoplastic chemotherapy (principal); C78.01 Secondary malignant neoplasm of right lung; Z79.899 Other long term (current) drug therapy
CPT/HCPCS: 80053; 82024; 82533; 84443; 85025; 96413; J9271

== ENCOUNTER 2023-05-09 08:24 | Outpatient (CLI) | payer MEDICARE, OTHER, SELFPAY ==
[2023-05-09 08:32] VITALS: BMI 25.7
[2023-05-09 09:10] LABS: Alanine Aminotransferase 22 U/L (12-78); Albumin Level 4.2 g/dl (3.5-5.0); Albumin/Globulin Ratio 1.4 (1.1-1.8); Alkaline Phosphatase 78 U/L (38-126); Anion Gap 13.7 mEq/L (5-15); Aspartate Amino Transferase 31 U/L (17-59); Bilirubin,Total 0.6 mg/dl (0.2-1.3); Blood Urea Nitrogen 14 mg/dl (9-20); Calcium 8.8 mg/dl (8.4-10.2); Carbon Dioxide 28 mmol/L (22.0-30.0); Chloride 103 mmol/L (98-107); Creatinine Clearance Estimated 74 mL/min (50-200); Estimated Glomerular Filt Rate 72 ml/min (>60); GFR (African American) 87 ML/MIN (>60); Globulin 2.9 g/dL (1.3-3.2); Glucose 96 mg/dl (74-100); Potassium 4.7 mmoL/L (3.5-5.1); Sodium 140 mmol/L (136-145); Total Protein,Serum 7.1 g/dl (6.3-8.2)
[2023-05-09 09:16] LABS: Basophils % 0.4 % (0.1-2.0); Eosinophils % 0.7 % (0.1-12.0); Hematocrit 45.5 % (42.0-52.0); Hemoglobin 14.2 g/dL (14.1-18.0); Lymphocytes # 0.9 K/mm3 (0.7-4.5); Lymphocytes % 14.2 % (10-50); Mean Corpuscular HGB Conc 31.3 g/dL (31.8-35.4); Mean Corpuscular Hemoglobin 29.4 pg (27.0-31.2); Mean Corpuscular Volume 93.9 fl (80-94); Mean Platelet Volume 8.3 fl (7.4-10.4); Monocytes # 0.6 K/mm3 (0.1-1.0); Monocytes % 10.1 % (1.7-9.3); Neutrophils # 4.7 K/mm3 (1.8-7.8); Neutrophils % 74.6 % (37.0-80.0); Platelet Count 155 K/mm3 (142-424); Red Blood Count 4.85 M/mm3 (4.60-6.20); Red Cell Distribution Width 13.2 % (11.5-17.5); White Blood Count 6.3 K/mm3 (4.8-10.8)
[2023-05-09 09:41] LABS: Thyroid Stimulating Hormone 1.74 uIU/mL (0.465-4.68)
[2023-05-09 09:58] VITALS: BP 121/62; PULSE 62; RESP 18; TEMP 36.7; O2SAT 99
[2023-05-09 10:50] VITALS: BP 109/64; PULSE 56; RESP 18; O2SAT 99
[2023-05-10 14:13] LABS: Adrenocorticotropic Hormone 11.7 pg/mL (7.2-63.3)
== END 2023-05-09 10:50 | disposition home or self-care (01) ==
LOC: INF 08:25
PROVIDERS: PCP Family Medicine; Visit Provider Internal Medicine Medical Oncology
DX: Z79.899 Other long term (current) drug therapy; Z51.11 Encounter for antineoplastic chemotherapy; C78.01 Secondary malignant neoplasm of right lung
CPT/HCPCS: 80053; 82024; 82533; 84443; 85025; 96413; J9271

== ENCOUNTER 2023-05-31 08:21 | Outpatient (CLI) | payer MEDICARE, OTHER, SELFPAY ==
[2023-05-31 08:26] VITALS: BMI 25.7
[2023-05-31 09:13] LABS: Alanine Aminotransferase 20 U/L (12-78); Albumin Level 4.3 g/dl (3.5-5.0); Albumin/Globulin Ratio 1.5 (1.1-1.8); Alkaline Phosphatase 68 U/L (38-126); Anion Gap 7.5 mEq/L (5-15); Aspartate Amino Transferase 26 U/L (17-59); Bilirubin,Total 0.6 mg/dl (0.2-1.3); Blood Urea Nitrogen 13 mg/dl (9-20); Calcium 9.3 mg/dl (8.4-10.2); Carbon Dioxide 29 mmol/L (22.0-30.0); Chloride 107 mmol/L (98-107); Creatinine Clearance Estimated 66 mL/min (50-200); Estimated Glomerular Filt Rate 64 ml/min (>60); GFR (African American) 78 ML/MIN (>60); Globulin 2.8 g/dL (1.3-3.2); Glucose 97 mg/dl (74-100); Potassium 4.5 mmoL/L (3.5-5.1); Sodium 139 mmol/L (136-145); Total Protein,Serum 7.1 g/dl (6.3-8.2)
[2023-05-31 10:20] VITALS: BP 121/72; PULSE 58; RESP 17; O2SAT 98
[2023-05-31 10:35] VITALS: BP 114/64; PULSE 60; RESP 16
[2023-05-31 10:50] VITALS: BP 112/62; PULSE 57; RESP 16
[2023-05-31 11:10] LABS: Hemoglobin 14.1 g/dL (14.1-18.0); Red Blood Count 4.71 M/mm3 (4.60-6.20); White Blood Count 6.6 K/mm3 (4.8-10.8)
[2023-05-31 11:11] LABS: Basophils % 0.3 % (0.1-2.0); Eosinophils % 0.3 % (0.1-12.0); Hematocrit 42.6 % (42.0-52.0); Lymphocytes # 0.8 K/mm3 (0.7-4.5); Lymphocytes % 11.3 % (10-50); Mean Corpuscular HGB Conc 33.2 g/dL (31.8-35.4); Mean Corpuscular Hemoglobin 29.9 pg (27.0-31.2); Mean Corpuscular Volume 90.2 fl (80-94); Monocytes # 0.7 K/mm3 (0.1-1.0); Monocytes % 10.9 % (1.7-9.3); Neutrophils # 5.1 K/mm3 (1.8-7.8); Neutrophils % 76.9 % (37.0-80.0); Platelet Count 146 K/mm3 (142-424); Red Cell Distribution Width 12.7 % (11.5-17.5)
[2023-06-01 13:09] LABS: Adrenocorticotropic Hormone 19.6 pg/mL (7.2-63.3)
== END 2023-05-31 11:10 | disposition home or self-care (01) ==
LOC: INF 08:22
PROVIDERS: PCP Family Medicine; Visit Provider Internal Medicine Medical Oncology
DX: Z79.899 Other long term (current) drug therapy; C43.9 Malignant melanoma of skin, unspecified; C78.00 Secondary malignant neoplasm of unspecified lung
CPT/HCPCS: 80053; 82024; 82533; 84443; 85025; 96413; J9271

== ENCOUNTER → 2023-06-03 11:11 | Outpatient (CLI) | payer MEDICARE, OTHER, SELFPAY ==
--- NOTE | 2023-06-03 11:15 | CT_ITS ---
FINAL REPORT TECHNIQUE: Axial CT of the abdomen and pelvis, without and with IV contrast. CLINICAL HISTORY: MELANOMA FINDINGS: Abdomen: Lung bases are clear. There is a known hypervascular right anterior lesion in the liver noted on a prior CT of January. That lesion is only faintly seen on the chest CT and not seen on the abdominal CT today due to earlier free phase imaging. Favor a benign vascular lesion. The spleen, pancreas and adrenal glands are unremarkable. Precontrast imaging shows no renal stone disease. Postcontrast imaging of the kidneys shows a 4 mm right posterior renal low-density, probable cyst although size limits evaluation. No bowel obstruction or fluid collection is seen. Pelvis: The appendix is not visualized. Pelvic bowel loops are remarkable for a large amount of stool. No fluid collection or adenopathy is seen. IMPRESSION: Known hypervascular right anterior liver lesion not well seen on today's exam secondary to earlier phase imaging. Favor a benign vascular lesion. 4 mm posterior right renal probable cyst although small size limits evaluation. Large stool burden. Reviewed, Interpreted and Dictated by Jeff Chaparro MD Transcribed by Jacklyn Aly Authenticated and [facility]
--- NOTE | 2023-06-03 11:15 | CT_ITS ---
FINAL REPORT TECHNIQUE: Pre and postcontrast axial imaging of the chest was obtained. Reformatted images were also obtained and reviewed. This study was performed with techniques to keep radiation dose as low as reasonably achievable (ALARA). Individualized dose reduction techniques using automated exposure control or adjustment of mA and/or kV according to the patient's size were employed. CLINICAL HISTORY: MELANOMA COMPARISON: 02/01/2023 FINDINGS: There is a right lower lobe nodule present, measuring 13 x 10 mm in size, which measured 12 x 11 mm in size on the prior CT of January. This is essentially unchanged in appearance. There is a 7 mm right lower lobe nodule, also unchanged. The left lung is clear. There are lobular right paratracheal nodes, on today's exam measuring 48 x 45 mm, previously 50 x 45 mm. No axillary adenopathy is seen. No pleural effusion is present. IMPRESSION: Stable right pulmonary and mediastinal metastases in this patient with melanoma. Reviewed, Interpreted and Dictated by Jeff Chaparro MD Transcribed by Jacklyn Aly Authenticated and [facility]
== END ==
PROVIDERS: PCP Family Medicine; Visit Provider Internal Medicine Medical Oncology
DX: C43.9 Malignant melanoma of skin, unspecified (principal)
CPT/HCPCS: 71270; 74178; Q9967

== ENCOUNTER → 2023-06-04 09:24 | Outpatient (CLI) | payer MEDICARE, OTHER, SELFPAY ==
[2023-06-04 10:32] LABS: Bilirubin,Unconjugated 0.4 mg/dL (0.0-1.1)
[2023-06-04 10:33] LABS: Alanine Aminotransferase 19 U/L (12-78); Albumin Level 4.4 g/dl (3.5-5.0); Alkaline Phosphatase 69 U/L (38-126); Aspartate Amino Transferase 26 U/L (17-59); Bilirubin,Direct 0.3 mg/dl (0.0-0.4); Bilirubin,Indirect 0.4 mg/dL (0.0-0.9); Bilirubin,Total 0.7 mg/dl (0.2-1.3); Chol/HDL Ratio 6.6 (1-3.5); Cholesterol 257 mg/dl (140-200); HDL Cholesterol 39 mg/dl (40-60); Total Protein,Serum 7.2 g/dl (6.3-8.2); Triglycerides 237 mg/dl (30-150); VLDL Cholesterol 47 mg/dL (0-40)
[2023-06-04 10:44] LABS: Direct LDL Cholesterol 150.27 mg/dL (100-129)
== END ==
PROVIDERS: PCP Family Medicine; Visit Provider Nurse Practitioner
DX: I25.10 Atherosclerotic heart disease of native coronary artery without angina pectoris; E78.5 Hyperlipidemia, unspecified; I11.9 Hypertensive heart disease without heart failure
CPT/HCPCS: 80061; 80076

== ENCOUNTER 2023-06-21 10:18 | Outpatient (CLI) | payer MEDICARE, OTHER, SELFPAY ==
[2023-06-21 10:22] VITALS: BMI 25.7
[2023-06-21 10:45] LABS: Chloride 103 mmol/L (98-107)
[2023-06-21 10:46] LABS: Basophils % 0.5 % (0.1-2.0); Eosinophils % 0.5 % (0.1-12.0); Hematocrit 44.9 % (42.0-52.0); Hemoglobin 14.5 g/dL (14.1-18.0); Lymphocytes # 1.1 K/mm3 (0.7-4.5); Lymphocytes % 16.7 % (10-50); Mean Corpuscular HGB Conc 32.2 g/dL (31.8-35.4); Mean Corpuscular Hemoglobin 29.4 pg (27.0-31.2); Mean Corpuscular Volume 91.3 fl (80-94); Mean Platelet Volume 8.7 fl (7.4-10.4); Monocytes # 0.7 K/mm3 (0.1-1.0); Monocytes % 10.6 % (1.7-9.3); Neutrophils # 4.7 K/mm3 (1.8-7.8); Neutrophils % 71.7 % (37.0-80.0); Platelet Count 165 K/mm3 (142-424); Potassium 4.6 mmoL/L (3.5-5.1); Red Blood Count 4.92 M/mm3 (4.60-6.20); Red Cell Distribution Width 13.5 % (11.5-17.5); Sodium 138 mmol/L (136-145); White Blood Count 6.6 K/mm3 (4.8-10.8)
[2023-06-21 10:48] LABS: Alanine Aminotransferase 22 U/L (12-78); Aspartate Amino Transferase 26 U/L (17-59); Blood Urea Nitrogen 15 mg/dl (9-20); Creatinine Clearance Estimated 66 mL/min (50-200); Estimated Glomerular Filt Rate 64 ml/min (>60); GFR (African American) 78 ML/MIN (>60)
[2023-06-21 10:49] LABS: Albumin Level 4.3 g/dl (3.5-5.0); Albumin/Globulin Ratio 1.4 (1.1-1.8); Alkaline Phosphatase 75 U/L (38-126); Anion Gap 9.6 mEq/L (5-15); Bilirubin,Total 0.7 mg/dl (0.2-1.3); Calcium 9.7 mg/dl (8.4-10.2); Carbon Dioxide 30 mmol/L (22.0-30.0); Globulin 3.1 g/dL (1.3-3.2); Glucose 99 mg/dl (74-100); Total Protein,Serum 7.4 g/dl (6.3-8.2)
[2023-06-21 11:20] LABS: Thyroid Stimulating Hormone 2.58 uIU/mL (0.465-4.68)
[2023-06-21 11:48] VITALS: BP 120/62; PULSE 58; RESP 18; TEMP 36.7; O2SAT 98
[2023-06-21 12:35] VITALS: BP 112/72; PULSE 56; RESP 18; O2SAT 98
[2023-06-22 15:10] LABS: Adrenocorticotropic Hormone 18.5 pg/mL (7.2-63.3)
== END 2023-06-21 12:41 | disposition home or self-care (01) ==
LOC: INF 10:19
PROVIDERS: PCP Family Medicine; Visit Provider Internal Medicine Medical Oncology
DX: R91.8 Other nonspecific abnormal finding of lung field (principal); Z79.899 Other long term (current) drug therapy; Z51.11 Encounter for antineoplastic chemotherapy; Z85.820 Personal history of malignant melanoma of skin; C78.01 Secondary malignant neoplasm of right lung
CPT/HCPCS: 80053; 82024; 82533; 84443; 85025; 96413; J9271

== ENCOUNTER 2023-07-11 09:27 | Outpatient (CLI) | payer MEDICARE, OTHER, SELFPAY ==
[2023-07-11 09:32] VITALS: BMI 25.7
[2023-07-11 10:00] LABS: Basophils % 0.4 % (0.1-2.0); Eosinophils % 0.5 % (0.1-12.0); Hematocrit 42.8 % (42.0-52.0); Hemoglobin 14.1 g/dL (14.1-18.0); Lymphocytes % 14.3 % (10-50); Mean Corpuscular HGB Conc 32.8 g/dL (31.8-35.4); Mean Corpuscular Hemoglobin 29.8 pg (27.0-31.2); Mean Corpuscular Volume 90.9 fl (80-94); Mean Platelet Volume 8.4 fl (7.4-10.4); Monocytes # 0.6 K/mm3 (0.1-1.0); Monocytes % 8.7 % (1.7-9.3); Neutrophils # 5.2 K/mm3 (1.8-7.8); Platelet Count 145 K/mm3 (142-424); Red Blood Count 4.71 M/mm3 (4.60-6.20); Red Cell Distribution Width 13.5 % (11.5-17.5); White Blood Count 6.8 K/mm3 (4.8-10.8)
[2023-07-11 10:59] LABS: Alanine Aminotransferase 19 U/L (12-78); Albumin Level 4.1 g/dl (3.5-5.0); Albumin/Globulin Ratio 1.6 (1.1-1.8); Alkaline Phosphatase 65 U/L (38-126); Anion Gap 12.4 mEq/L (5-15); Aspartate Amino Transferase 26 U/L (17-59); Bilirubin,Total 0.6 mg/dl (0.2-1.3); Blood Urea Nitrogen 17 mg/dl (9-20); Carbon Dioxide 28 mmol/L (22.0-30.0); Chloride 104 mmol/L (98-107); Creatinine Clearance Estimated 66 mL/min (50-200); Estimated Glomerular Filt Rate 64 ml/min (>60); GFR (African American) 78 ML/MIN (>60); Globulin 2.5 g/dL (1.3-3.2); Glucose 87 mg/dl (74-100); Potassium 4.4 mmoL/L (3.5-5.1); Sodium 140 mmol/L (136-145); Total Protein,Serum 6.6 g/dl (6.3-8.2)
[2023-07-11 11:06] VITALS: BP 112/66; PULSE 56; RESP 18; TEMP 36.6; O2SAT 99
[2023-07-11 12:00] VITALS: BP 126/80; PULSE 57; RESP 18; O2SAT 99
[2023-07-12 14:12] LABS: Adrenocorticotropic Hormone 18.8 pg/mL (7.2-63.3)
== END 2023-07-11 12:00 | disposition home or self-care (01) ==
LOC: INF 09:28
PROVIDERS: PCP Family Medicine; Visit Provider Internal Medicine Medical Oncology
DX: Z79.899 Other long term (current) drug therapy; C78.01 Secondary malignant neoplasm of right lung
CPT/HCPCS: 80053; 82024; 82533; 84443; 85025; 96413; J9271

== ENCOUNTER 2023-08-01 08:46 | Outpatient (CLI) | payer MEDICARE, OTHER, SELFPAY ==
[2023-08-01 08:54] VITALS: BMI 25.9
[2023-08-01 09:13] LABS: Chloride 104 mmol/L (98-107); Potassium 4.4 mmoL/L (3.5-5.1); Sodium 140 mmol/L (136-145)
[2023-08-01 09:14] LABS: Basophils % 0.5 % (0.1-2.0); Eosinophils % 0.6 % (0.1-12.0); Hematocrit 46.9 % (42.0-52.0); Hemoglobin 14.9 g/dL (14.1-18.0); Lymphocytes % 15.5 % (10-50); Mean Corpuscular HGB Conc 31.7 g/dL (31.8-35.4); Mean Corpuscular Hemoglobin 29.1 pg (27.0-31.2); Mean Corpuscular Volume 91.8 fl (80-94); Mean Platelet Volume 8.5 fl (7.4-10.4); Monocytes # 0.6 K/mm3 (0.1-1.0); Monocytes % 9.9 % (1.7-9.3); Neutrophils # 4.7 K/mm3 (1.8-7.8); Neutrophils % 73.5 % (37.0-80.0); Platelet Count 161 K/mm3 (142-424); Red Blood Count 5.11 M/mm3 (4.60-6.20); Red Cell Distribution Width 13.6 % (11.5-17.5); White Blood Count 6.5 K/mm3 (4.8-10.8)
[2023-08-01 09:15] LABS: Alanine Aminotransferase 23 U/L (12-78); Aspartate Amino Transferase 30 U/L (17-59); Blood Urea Nitrogen 15 mg/dl (9-20); Creatinine Clearance Estimated 67 mL/min (50-200); Estimated Glomerular Filt Rate 64 ml/min (>60); GFR (African American) 78 ML/MIN (>60)
[2023-08-01 09:16] LABS: Albumin Level 4.2 g/dl (3.5-5.0); Albumin/Globulin Ratio 1.4 (1.1-1.8); Alkaline Phosphatase 61 U/L (38-126); Anion Gap 11.4 mEq/L (5-15); Bilirubin,Total 0.7 mg/dl (0.2-1.3); Calcium 9.2 mg/dl (8.4-10.2); Carbon Dioxide 29 mmol/L (22.0-30.0); Globulin 3.1 g/dL (1.3-3.2); Glucose 103 mg/dl (74-100); Total Protein,Serum 7.3 g/dl (6.3-8.2)
[2023-08-01 09:48] LABS: Thyroid Stimulating Hormone 2.46 uIU/mL (0.465-4.68)
[2023-08-01 10:08] VITALS: BP 112/62; PULSE 69; RESP 18; TEMP 36.6; O2SAT 97
[2023-08-01 10:50] VITALS: BP 98/64; PULSE 73; RESP 18; O2SAT 99
[2023-08-02 14:20] LABS: Adrenocorticotropic Hormone 13.1 pg/mL (7.2-63.3)
== END 2023-08-01 10:50 | disposition home or self-care (01) ==
LOC: INF 08:48
PROVIDERS: PCP Family Medicine; Visit Provider Internal Medicine Medical Oncology
DX: Z85.820 Personal history of malignant melanoma of skin (principal); Z79.899 Other long term (current) drug therapy
CPT/HCPCS: 80053; 82024; 82533; 84443; 85025; 96413; J9271

== ENCOUNTER 2023-08-22 08:47 | Outpatient (CLI) | payer MEDICARE, OTHER, SELFPAY ==
[2023-08-22 08:51] VITALS: BMI 25.9
[2023-08-22 09:22] LABS: Alanine Aminotransferase 23 U/L (12-78); Albumin Level 4.4 g/dl (3.5-5.0); Albumin/Globulin Ratio 1.3 (1.1-1.8); Alkaline Phosphatase 62 U/L (38-126); Anion Gap 11.5 mEq/L (5-15); Aspartate Amino Transferase 31 U/L (17-59); Bilirubin,Total 0.7 mg/dl (0.2-1.3); Blood Urea Nitrogen 15 mg/dl (9-20); Calcium 9.6 mg/dl (8.4-10.2); Carbon Dioxide 30 mmol/L (22.0-30.0); Chloride 101 mmol/L (98-107); Creatinine Clearance Estimated 73 mL/min (50-200); Estimated Glomerular Filt Rate 72 ml/min (>60); GFR (African American) 87 ML/MIN (>60); Globulin 3.3 g/dL (1.3-3.2); Glucose 101 mg/dl (74-100); Potassium 4.5 mmoL/L (3.5-5.1); Sodium 138 mmol/L (136-145); Total Protein,Serum 7.7 g/dl (6.3-8.2)
[2023-08-22 09:24] LABS: Basophils % 0.4 % (0.1-2.0); Eosinophils % 0.5 % (0.1-12.0); Hematocrit 43.4 % (42.0-52.0); Hemoglobin 14.7 g/dL (14.1-18.0); Mean Corpuscular HGB Conc 33.8 g/dL (31.8-35.4); Mean Corpuscular Hemoglobin 31.5 pg (27.0-31.2); Mean Corpuscular Volume 93.1 fl (80-94); Mean Platelet Volume 7.8 fl (7.4-10.4); Monocytes # 0.6 K/mm3 (0.1-1.0); Monocytes % 8.1 % (1.7-9.3); Neutrophils # 5.5 K/mm3 (1.8-7.8); Platelet Count 157 K/mm3 (142-424); Red Blood Count 4.66 M/mm3 (4.60-6.20); Red Cell Distribution Width 13.6 % (11.5-17.5); White Blood Count 7.2 K/mm3 (4.8-10.8)
[2023-08-22 09:53] LABS: Thyroid Stimulating Hormone 2.62 uIU/mL (0.465-4.68)
[2023-08-22 10:40] VITALS: BP 121/64; PULSE 64; RESP 18; TEMP 36.4; O2SAT 98
[2023-08-22 11:30] VITALS: BP 104/56; PULSE 86; RESP 18; O2SAT 99
[2023-08-23 13:10] LABS: Adrenocorticotropic Hormone 27.6 pg/mL (7.2-63.3)
== END 2023-08-22 11:30 | disposition home or self-care (01) ==
LOC: INF 08:47
PROVIDERS: PCP Family Medicine; Visit Provider Internal Medicine Medical Oncology
DX: C78.00 Secondary malignant neoplasm of unspecified lung (principal); Z79.899 Other long term (current) drug therapy
CPT/HCPCS: 80053; 82024; 82533; 84443; 85025; 96413; J9271

== ENCOUNTER 2023-09-11 10:55 | Outpatient (CLI) | payer MEDICARE, OTHER, SELFPAY ==
[2023-09-11 11:05] VITALS: BMI 26.1
[2023-09-11 12:20] LABS: Basophils % 0.5 % (0.1-2.0); Eosinophils # 0.1 K/mm3 (0.0-0.4); Eosinophils % 0.7 % (0.1-12.0); Hematocrit 43.3 % (42.0-52.0); Hemoglobin 14.8 g/dL (14.1-18.0); Lymphocytes % 14.3 % (10-50); Mean Corpuscular HGB Conc 34.1 g/dL (31.8-35.4); Mean Corpuscular Hemoglobin 31.2 pg (27.0-31.2); Mean Corpuscular Volume 91.5 fl (80-94); Mean Platelet Volume 8.3 fl (7.4-10.4); Monocytes # 0.6 K/mm3 (0.1-1.0); Monocytes % 8.6 % (1.7-9.3); Neutrophils # 5.2 K/mm3 (1.8-7.8); Neutrophils % 75.9 % (37.0-80.0); Platelet Count 136 K/mm3 (142-424); Red Blood Count 4.73 M/mm3 (4.60-6.20); Red Cell Distribution Width 13.6 % (11.5-17.5); White Blood Count 6.9 K/mm3 (4.8-10.8)
[2023-09-11 12:43] LABS: Alanine Aminotransferase 24 U/L (12-78); Albumin Level 4.4 g/dl (3.5-5.0); Albumin/Globulin Ratio 1.5 (1.1-1.8); Alkaline Phosphatase 64 U/L (38-126); Anion Gap 10.3 mEq/L (5-15); Aspartate Amino Transferase 33 U/L (17-59); Bilirubin,Total 0.7 mg/dl (0.2-1.3); Blood Urea Nitrogen 13 mg/dl (9-20); Calcium 9.4 mg/dl (8.4-10.2); Carbon Dioxide 29 mmol/L (22.0-30.0); Chloride 103 mmol/L (98-107); Creatinine Clearance Estimated 74 mL/min (50-200); Estimated Glomerular Filt Rate 72 ml/min (>60); GFR (African American) 87 ML/MIN (>60); Globulin 2.9 g/dL (1.3-3.2); Glucose 101 mg/dl (74-100); Potassium 4.3 mmoL/L (3.5-5.1); Sodium 138 mmol/L (136-145); Total Protein,Serum 7.3 g/dl (6.3-8.2)
[2023-09-11 13:21] VITALS: BP 122/76; PULSE 67; RESP 18; TEMP 36.3; O2SAT 99
[2023-09-11 13:51] VITALS: BP 115/62; PULSE 57; RESP 18; O2SAT 99
[2023-09-11 14:05] VITALS: BP 118/67; PULSE 58; RESP 18; O2SAT 98
[2023-09-11 14:25] LABS: Thyroid Stimulating Hormone 2.66 uIU/mL (0.465-4.68)
[2023-09-12 13:20] LABS: Adrenocorticotropic Hormone 20.2 pg/mL (7.2-63.3)
== END 2023-09-11 14:05 | disposition home or self-care (01) ==
LOC: INF 10:56
PROVIDERS: PCP Family Medicine; Visit Provider Internal Medicine Medical Oncology
DX: Z79.899 Other long term (current) drug therapy; Z51.11 Encounter for antineoplastic chemotherapy; C78.01 Secondary malignant neoplasm of right lung
CPT/HCPCS: 80053; 82024; 82533; 84443; 85025; 96413; J9271

== ENCOUNTER → 2023-09-24 07:46 | Outpatient (CLI) | payer MEDICARE, OTHER, SELFPAY ==
--- NOTE | 2023-09-24 07:49 | CT_ITS ---
FINAL REPORT TECHNIQUE: Routine axial images were obtained from the lung apices to below the diaphragm following IV contrast administration. Individualized dose reduction techniques using automated exposure control or adjustment of the mA and/or kV according to the patient size were employed. CLINICAL HISTORY: MELENOMA COMPARISON: 06/03/2023 FINDINGS: The patient has a known history of melanoma. There are a conglomerate of right hilar nodes, which on today's exam measures 55 x 49 mm, was previously 48 x 45 mm. There is a 13 x 9 mm nodule in the right lower lobe, which is essentially unchanged since the prior CT. Another small 8 mm nodule is present in the right lower lobe, also essentially unchanged since the prior CT. No new nodular opacities are identified. No infiltrates or effusions are present. IMPRESSION: Right hilar adenopathy has increased since the prior CT of May 2023, from 48 x 45 mm to 55 x 49 mm. PET/CT might be helpful for further evaluation. No change in the right lower lobe nodular opacities since the prior CT. Reviewed, Interpreted and Dictated by Mark Hyman MD Transcribed by Jacklyn Aly Authenticated and [facility]
--- NOTE | 2023-09-24 07:49 | CT_ITS ---
FINAL REPORT TECHNIQUE: After the administration of oral and intravenous contrast, axial images were obtained through the abdomen and pelvis by computed tomography. The study was performed with techniques to keep radiation dose as low as reasonably achievable, (ALARA). Individual dose reduction techniques using automated exposure control or adjustment of mA and/or kV according to the patient's size were employed. CLINICAL HISTORY: MELENOMA COMPARISON: 06/03/2023 FINDINGS: Abdomen: The liver parenchyma is homogeneous. The gallbladder is present and mildly distended. The spleen, pancreas, adrenals and kidneys appear unremarkable. The aorta is normal in caliber. There is no free fluid or adenopathy. There is a moderate stool burden present throughout the colon. Pelvis: The appendix is not identified. The urinary bladder is incompletely distended. There is no free fluid or adenopathy. There is advanced degenerative change present at the L5-S1 level. IMPRESSION: No acute intra-abdominal process. Reviewed, Interpreted and Dictated by Mark Hyman MD Transcribed by Jacklyn Aly Authenticated and [facility]
== END ==
PROVIDERS: PCP Family Medicine; Visit Provider Internal Medicine Medical Oncology
DX: C43.9 Malignant melanoma of skin, unspecified (principal); C78.00 Secondary malignant neoplasm of unspecified lung; C77.1 Secondary and unspecified malignant neoplasm of intrathoracic lymph nodes
CPT/HCPCS: 71260; 74177; Q9967

== ENCOUNTER 2023-10-01 08:33 | Outpatient (CLI) | payer MEDICARE, OTHER, SELFPAY ==
[2023-10-01 08:38] VITALS: BMI 25.8
[2023-10-01 09:04] LABS: Chloride 102 mmol/L (98-107)
[2023-10-01 09:05] LABS: Potassium 4.4 mmoL/L (3.5-5.1); Sodium 137 mmol/L (136-145)
[2023-10-01 09:07] LABS: Alanine Aminotransferase 22 U/L (12-78); Alkaline Phosphatase 55 U/L (38-126); Aspartate Amino Transferase 33 U/L (17-59); Bilirubin,Total 0.8 mg/dl (0.2-1.3); Blood Urea Nitrogen 15 mg/dl (9-20); Creatinine Clearance Estimated 66 mL/min (50-200); Estimated Glomerular Filt Rate 64 ml/min (>60); GFR (African American) 78 ML/MIN (>60)
[2023-10-01 09:08] LABS: Albumin Level 4.5 g/dl (3.5-5.0); Albumin/Globulin Ratio 1.5 (1.1-1.8); Anion Gap 8.4 mEq/L (5-15); Calcium 9.2 mg/dl (8.4-10.2); Carbon Dioxide 31 mmol/L (22.0-30.0); Globulin 3.1 g/dL (1.3-3.2); Glucose 96 mg/dl (74-100); Total Protein,Serum 7.6 g/dl (6.3-8.2)
[2023-10-01 09:09] LABS: Basophils % 0.4 % (0.1-2.0); Eosinophils # 0.1 K/mm3 (0.0-0.4); Eosinophils % 0.9 % (0.1-12.0); Hematocrit 43.7 % (42.0-52.0); Hemoglobin 14.8 g/dL (14.1-18.0); Lymphocytes # 0.9 K/mm3 (0.7-4.5); Lymphocytes % 15.2 % (10-50); Mean Corpuscular Volume 91.1 fl (80-94); Mean Platelet Volume 8.6 fl (7.4-10.4); Monocytes # 0.6 K/mm3 (0.1-1.0); Monocytes % 10.5 % (1.7-9.3); Neutrophils # 4.5 K/mm3 (1.8-7.8); Neutrophils % 72.9 % (37.0-80.0); Platelet Count 152 K/mm3 (142-424); Red Blood Count 4.79 M/mm3 (4.60-6.20); Red Cell Distribution Width 13.6 % (11.5-17.5); White Blood Count 6.1 K/mm3 (4.8-10.8)
== END 2023-10-01 09:30 | disposition home or self-care (01) ==
LOC: INF 08:34
PROVIDERS: PCP Family Medicine; Visit Provider Internal Medicine Medical Oncology
DX: C78.01 Secondary malignant neoplasm of right lung (principal); Z45.2 Encounter for adjustment and management of vascular access device
CPT/HCPCS: 36415; 80053; 85025

== ENCOUNTER → 2023-10-02 14:38 | Outpatient (CLI) | payer MEDICARE, OTHER, SELFPAY ==
--- NOTE | 2023-10-02 14:42 | MR_ITS ---
FINAL REPORT CLINICAL HISTORY: MELANOMA AND ABNORMAL CT OF CHEST COMPARISON: 02/25/2023 FINDINGS: Multiplanar MR imaging of the brain was performed without and with contrast. There is moderate age-appropriate atrophy. Scattered foci of increased T2 signal are seen in the cerebral white matter that have a nonspecific appearance but likely represent moderate chronic ischemic/gliotic changes. There is a 5 x 5 mm contrast-enhancing mass in the left posterior frontal lobe, consistent with a metastatic lesion in this patient with known melanoma. No other foci suggestive of metastatic disease are seen. 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 There is no evidence of intracranial hemorrhage or mass. No abnormal ventricular dilatation is identified. There is no evidence of shift of the midline structures. No abnormal extra-axial fluid collection is seen. No area of abnormal restricted diffusion is identified. The posterior fossa and brainstem have an unremarkable appearance. Normal major vessel vascular flow voids are seen. IMPRESSION: 5 x 5 mm contrast-enhancing mass in the left posterior frontal lobe consistent with a metastatic lesion in this patient with known melanoma. Moderate atrophy and chronic ischemic/gliotic changes. Reviewed, Interpreted and Dictated by Hitesh Caruso III, MD Transcribed by Jacklyn Aly Authenticated and [facility]
== END ==
PROVIDERS: PCP Family Medicine; Visit Provider Internal Medicine Medical Oncology
DX: C43.9 Malignant melanoma of skin, unspecified (principal); C78.00 Secondary malignant neoplasm of unspecified lung
CPT/HCPCS: 70553; A9576

== ENCOUNTER 2023-12-24 08:24 | Outpatient (CLI) | payer MEDICARE, OTHER, SELFPAY ==
[2023-12-24 08:20] VITALS: BMI 25.7
--- NOTE | 2023-12-24 08:40 | CT_ITS ---
FINAL REPORT CLINICAL HISTORY: CHEST-MELANOMA COMPARISON: 09/24/2023 FINDINGS: CT OF THE ABDOMEN AND PELVIS WITH CONTRAST Axial CT images of the abdomen and pelvis were obtained after the administration of IV contrast. Coronal and sagittal reformatted images were also obtained and reviewed. This study was performed with techniques to keep radiation doses as low as reasonably achievable (ALARA). Individualized dose reduction techniques using automated exposure control or adjustment of mA and/or kV according to the patient's size were employed. Abdomen: The lung bases are clear. The heart is normal in size. The liver has an unremarkable appearance, without evidence of mass or biliary ductal dilatation. The spleen is unremarkable. No adrenal mass is present. The pancreas has an unremarkable appearance. There is a 6 mm mass in the medial aspect of the lower pole of the left kidney, which is stable since the prior CT examination of September. This is not consistent with a simple cyst in appearance, and may represent a neoplasm versus complex cyst. Would recommend continued follow-up with CT at 3 to 6 months. The aorta is normal in caliber. There is no free fluid or adenopathy. No mass or abnormal fluid collection is seen. Pelvis: The appendix is normal in appearance. There is a small umbilical hernia present containing fat. The urinary bladder is unremarkable. No inflammatory process is seen. There is no evidence of mass or adenopathy. There is no evidence of bowel obstruction. IMPRESSION: Stable 6 mm mass in the medial aspect of the lower pole of the left kidney. This does not appear to represent a simple cyst, and continued follow-up with CT in 3 to 6 months is suggested. Small umbilical hernia containing fat. Reviewed, Interpreted and Dictated by Hitesh Caruso III, MD Transcribed by Jacklyn Aly Authenticated and . [facility]
[2023-12-24 08:44] LABS: Chloride 102 mmol/L (98-107); Sodium 136 mmol/L (136-145)
[2023-12-24 08:47] LABS: Alanine Aminotransferase 25 U/L (12-78); Albumin Level 4.4 g/dl (3.5-5.0); Albumin/Globulin Ratio 1.4 (1.1-1.8); Alkaline Phosphatase 82 U/L (38-126); Anion Gap 8.2 mEq/L (5-15); Aspartate Amino Transferase 30 U/L (17-59); Bilirubin,Total 0.9 mg/dl (0.2-1.3); Blood Urea Nitrogen 13 mg/dl (9-20); Calcium 9.4 mg/dl (8.4-10.2); Carbon Dioxide 30 mmol/L (22.0-30.0); Creatinine Clearance Estimated 60 mL/min (50-200); Estimated Glomerular Filt Rate 58 ml/min (>60); GFR (African American) 70 ML/MIN (>60); Globulin 3.1 g/dL (1.3-3.2); Glucose 97 mg/dl (74-100); Potassium 4.2 mmoL/L (3.5-5.1); Total Protein,Serum 7.5 g/dl (6.3-8.2)
--- NOTE | 2023-12-24 08:58 | CT_ITS ---
FINAL REPORT CLINICAL HISTORY: MELANOMA COMPARISON: 09/24/2023 FINDINGS: Axial CT images of the chest were obtained with contrast. Coronal and sagittal reformatted images were also obtained. This study was performed with techniques to keep radiation doses as low as reasonably achievable, (ALARA). Individualized dose reduction techniques using automated exposure control or adjustment of mA and/or KV according to the patient's size were employed. There is a right paratracheal mass identified, measuring 56 x 48 mm in size, essentially stable since the prior CT of September 24. No axillary mass or adenopathy is identified. There are several right-sided nodules noted on the prior examination as well, the largest of which is in the medial right lower lobe and measures 14 x 10 mm in size, essentially stable. No new masses or nodules are identified. No localized pulmonary inflammatory process is identified. Limited images of the upper abdomen reveal no mass or localized inflammatory process. IMPRESSION: Right paratracheal mass stable since the prior CT of September 24. Medial right lower lobe nodule measures 14 x 10 mm in size, essentially stable since the prior exam. No new masses or adenopathy are identified. Reviewed, Interpreted and Dictated by Hitesh Caruso III, MD Transcribed by Jacklyn Aly Authenticated and [facility]
[2023-12-24 09:05] LABS: T4 (Thyroxine) 9.4 ug/dl (5.53-11.0)
[2023-12-24 09:18] LABS: Thyroid Stimulating Hormone 3.57 uIU/mL (0.465-4.68)
[2023-12-24] MEDS: BARIUM SULFATE(READI-CAT2);450ML BOTTLE 450 ML PO (09:23)
[2023-12-24] MEDS: IOPAMIDOL-370 (76%);100ML BOTTLE 75 ML IV (09:23)
--- NOTE | 2023-12-24 09:24 | HMH.ITSTN ---
REMOVED IV AFTER CT.
[2023-12-24 10:13] LABS: Basophils % 0.3 % (0.1-2.0); Eosinophils # 0.1 K/mm3 (0.0-0.4); Eosinophils % 0.9 % (0.1-12.0); Hematocrit 43.1 % (42.0-52.0); Hemoglobin 14.5 g/dL (14.1-18.0); Lymphocytes # 1.1 K/mm3 (0.7-4.5); Lymphocytes % 14.3 % (10-50); Mean Corpuscular HGB Conc 33.6 g/dL (31.8-35.4); Mean Corpuscular Hemoglobin 30.7 pg (27.0-31.2); Mean Corpuscular Volume 91.3 fl (80-94); Mean Platelet Volume 8.7 fl (7.4-10.4); Monocytes # 0.8 K/mm3 (0.1-1.0); Monocytes % 9.6 % (1.7-9.3); Neutrophils % 74.9 % (37.0-80.0); Platelet Count 171 K/mm3 (142-424); Red Blood Count 4.72 M/mm3 (4.60-6.20); Red Cell Distribution Width 13.5 % (11.5-17.5)
== END 2023-12-24 23:59 ==
LOC: RAD 08:25
PROVIDERS: PCP Family Medicine; Visit Provider Internal Medicine Medical Oncology
DX: Z85.820 Personal history of malignant melanoma of skin (principal); Z79.899 Other long term (current) drug therapy
CPT/HCPCS: 36415; 71260; 74177; 80053; 84436; 84443; 85025; Q9967

== ENCOUNTER 2024-02-20 14:51 | Outpatient (CLI) | payer MEDICARE, OTHER, SELFPAY ==
[2024-02-20 15:28] LABS: Blood Urea Nitrogen 15 mg/dl (9-20); Estimated Glomerular Filt Rate 64 ml/min (>60); GFR (African American) 78 ML/MIN (>60)
== END 2024-02-20 23:59 ==
LOC: LAB 14:53
PROVIDERS: PCP Family Medicine; Visit Provider Internal Medicine Medical Oncology
DX: Z01.812 Encounter for preprocedural laboratory examination (principal)
CPT/HCPCS: 36415; 82565; 84520

== ENCOUNTER 2024-02-21 12:51 | Outpatient (CLI) | payer MEDICARE, OTHER, SELFPAY ==
--- NOTE | 2024-02-21 13:08 | MR_ITS ---
FINAL REPORT CLINICAL HISTORY: MELANOMA COMPARISON: 10/02/2023 FINDINGS: Multiplanar MR imaging of the brain was performed without and with contrast. There is moderate age-appropriate atrophy. Scattered foci of increased T2 signal are seen in the cerebral white matter that have a nonspecific appearance but likely represent moderate chronic ischemic/gliotic changes. There is no evidence of intracranial hemorrhage or mass. No abnormal ventricular dilatation is identified. There is no evidence of shift of the midline structures. No abnormal extra-axial fluid collection is seen. No area of abnormal restricted diffusion is identified. The posterior fossa and brainstem have an unremarkable appearance. There is a left posterior frontal focus of enhancement, which measures 5 mm on today's examination and measured 5 mm on the prior examination of September 2023, consistent with an intracranial metastasis in this patient with known melanoma. No new areas of focal enhancement are identified intracranially. Normal major vessel vascular flow voids are seen. There is a right frontal developmental venous anomaly present, also stable. IMPRESSION: Moderate atrophy and chronic ischemic/gliotic changes. Left posterior frontal focus of enhancement is stable since the prior examination and is consistent with an intracranial metastasis in this patient with known melanoma. No new foci of abnormal signal or enhancement are identified. Reviewed, Interpreted and Dictated by Hitesh Caruso III, MD Transcribed by Jacklyn Aly Authenticated and [facility]
[2024-02-21] MEDS: GADOTERIDOL INJ 17ML SYRINGE 18 ML IV (13:47)
[2024-02-21] MEDS: SODIUM CHLORIDE 0.9% 10ML SYR (RAD ONLY) 10 ML IV (13:47)
== END 2024-02-21 23:59 | disposition home or self-care (01) ==
LOC: RAD 12:52
PROVIDERS: PCP Family Medicine; Visit Provider Internal Medicine Medical Oncology
DX: Z85.820 Personal history of malignant melanoma of skin (principal); C78.00 Secondary malignant neoplasm of unspecified lung; Z79.899 Other long term (current) drug therapy
CPT/HCPCS: 70553; A9576

== ENCOUNTER 2024-03-18 08:09 | Outpatient (CLI) | payer MEDICARE, OTHER, SELFPAY ==
[2024-03-18 08:15] VITALS: BMI 25.9
[2024-03-18 08:31] LABS: Basophils % 0.6 % (0.1-2.0); Eosinophils # 0.1 K/mm3 (0.0-0.4); Eosinophils % 0.8 % (0.1-12.0); Hematocrit 41.9 % (42.0-52.0); Hemoglobin 13.6 g/dL (14.1-18.0); Lymphocytes # 0.9 K/mm3 (0.7-4.5); Lymphocytes % 14.2 % (10-50); Mean Corpuscular HGB Conc 32.4 g/dL (31.8-35.4); Mean Corpuscular Hemoglobin 30.3 pg (27.0-31.2); Mean Corpuscular Volume 93.7 fl (80-94); Mean Platelet Volume 8.1 fl (7.4-10.4); Monocytes # 0.6 K/mm3 (0.1-1.0); Monocytes % 9.7 % (1.7-9.3); Neutrophils # 4.8 K/mm3 (1.8-7.8); Neutrophils % 74.7 % (37.0-80.0); Platelet Count 142 K/mm3 (142-424); Red Blood Count 4.48 M/mm3 (4.60-6.20); Red Cell Distribution Width 14.3 % (11.5-17.5); White Blood Count 6.4 K/mm3 (4.8-10.8)
--- NOTE | 2024-03-18 08:34 | CT_ITS ---
FINAL REPORT CLINICAL HISTORY: MELANOMA COMPARISON: 12/24/2023 FINDINGS: CT OF THE ABDOMEN AND PELVIS WITH CONTRAST Axial CT images of the abdomen and pelvis were obtained after the administration of oral and iv contrast. Coronal and sagittal reformatted images were also obtained and reviewed.This study was performed with techniques to keep radiation doses as low as reasonably achievable (ALARA). Individualized dose reduction techniques using automated exposure control or adjustment of mA and/or kV according to the patient's size were employed. Abdomen: The lung bases are clear. The heart is normal in size. The liver has an unremarkable appearance, without evidence of mass or biliary ductal dilatation. The spleen is unremarkable. No adrenal mass is present. The pancreas has an unremarkable appearance. The 7 mm mass in the medial lower pole of the left kidney remains present and is stable in appearance. The aorta is normal in caliber. There are several borderline in size para-aortic nodes, stable since the prior exam. There is a small umbilical hernia containing fat. Pelvis: The appendix is not well-visualized. The urinary bladder is unremarkable. No inflammatory process is seen. There is no evidence of mass or adenopathy. There is no evidence of bowel obstruction. IMPRESSION: 7 mm mass in the medial lower pole of the left kidney, stable in appearance. Once again this may represent a complex cyst or neoplasm and continued follow-up is suggested. Several borderline in size aortic nodes are present, stable. Reviewed, Interpreted and Dictated by Hitesh Caruso III, MD Transcribed by Jacklyn Aly Authenticated and [facility]
--- NOTE | 2024-03-18 08:34 | CT_ITS ---
FINAL REPORT CLINICAL HISTORY: MELANOMA COMPARISON: 12/24/2023 FINDINGS: Axial CT images of the chest were obtained with contrast. Coronal and sagittal reformatted images were also obtained. This study was performed with techniques to keep radiation doses as low as reasonably achievable, (ALARA). Individualized dose reduction techniques using automated exposure control or adjustment of mA and/or KV according to the patient's size were employed. There is a right paratracheal mass seen on the prior CT examination of December. On today's examination this mass measures 64 x 49 mm in size, was previously 56 x 48 mm in size, slightly increased when compared to the prior exam. No axillary mass or adenopathy is identified. The right upper lobe nodule seen on the prior exam measures 6 mm on today's exam, was previously 5 mm in size, slightly increased. There is a second nodule in the medial right lower lobe, that measures 16 x 13 mm in size, was previously 14 x 10 mm in size. There are multiple other smaller than 5 mm nodules, which are stable. No localized pulmonary inflammatory process is identified. Limited images of the upper abdomen reveal no mass or localized inflammatory process. IMPRESSION: Right paratracheal mass and right lower and upper lobe nodules have increased slightly in size when compared to the prior exam of 12/24/2023. No new masses, nodules, or adenopathy are noted. Reviewed, Interpreted and Dictated by Hitesh Caruso III, MD Transcribed by Jacklyn Aly Authenticated and [facility]
[2024-03-18 08:38] LABS: Alanine Aminotransferase 21 U/L (12-78); Albumin Level 4.3 g/dl (3.5-5.0); Albumin/Globulin Ratio 1.6 (1.1-1.8); Alkaline Phosphatase 60 U/L (38-126); Anion Gap 11.5 mEq/L (5-15); Aspartate Amino Transferase 34 U/L (17-59); Bilirubin,Total 0.9 mg/dl (0.2-1.3); Blood Urea Nitrogen 19 mg/dl (9-20); Calcium 9.4 mg/dl (8.4-10.2); Carbon Dioxide 28 mmol/L (22.0-30.0); Chloride 102 mmol/L (98-107); Creatinine Clearance Estimated 61 mL/min (50-200); Estimated Glomerular Filt Rate 58 ml/min (>60); GFR (African American) 70 ML/MIN (>60); Globulin 2.7 g/dL (1.3-3.2); Glucose 102 mg/dl (74-100); Potassium 4.5 mmoL/L (3.5-5.1); Sodium 137 mmol/L (136-145)
[2024-03-18] MEDS: IOPAMIDOL-370 (76%);100ML BOTTLE 75 ML IV (09:10)
[2024-03-18] MEDS: SODIUM CHLORIDE 0.9% 10ML SYR (RAD ONLY) 10 ML IV (09:10)
[2024-03-18] MEDS: BARIUM SULFATE(READI-CAT2);450ML BOTTLE 450 ML PO (09:11)
== END 2024-03-18 23:59 | disposition home or self-care (01) ==
LOC: RAD 08:10
PROVIDERS: PCP Family Medicine; Visit Provider Internal Medicine Medical Oncology
DX: Z85.820 Personal history of malignant melanoma of skin (principal)
CPT/HCPCS: 36415; 71260; 74177; 80053; 85025; Q9967

== ENCOUNTER 2024-04-07 11:10 | Outpatient (CLI) | payer MEDICARE, OTHER, SELFPAY ==
[2024-04-07 12:05] LABS: Basophils % 0.5 % (0.1-2.0); Eosinophils % 0.1 % (0.1-12.0); Hematocrit 44.2 % (42.0-52.0); Hemoglobin 14.5 g/dL (14.1-18.0); Lymphocytes # 0.8 K/mm3 (0.7-4.5); Lymphocytes % 12.8 % (10-50); Mean Corpuscular HGB Conc 32.9 g/dL (31.8-35.4); Mean Corpuscular Hemoglobin 30.8 pg (27.0-31.2); Mean Corpuscular Volume 93.7 fl (80-94); Mean Platelet Volume 8.2 fl (7.4-10.4); Monocytes # 0.7 K/mm3 (0.1-1.0); Monocytes % 10.7 % (1.7-9.3); Neutrophils # 4.8 K/mm3 (1.8-7.8); Platelet Count 146 K/mm3 (142-424); Red Blood Count 4.72 M/mm3 (4.60-6.20); Red Cell Distribution Width 14.2 % (11.5-17.5); White Blood Count 6.3 K/mm3 (4.8-10.8)
[2024-04-07 12:25] LABS: Alanine Aminotransferase 18 U/L (12-78); Alkaline Phosphatase 85 U/L (38-126); Aspartate Amino Transferase 31 U/L (17-59); Bilirubin,Total 0.6 mg/dl (0.2-1.3); Blood Urea Nitrogen 23 mg/dl (9-20); Calcium 9.2 mg/dl (8.4-10.2); Carbon Dioxide 29 mmol/L (22.0-30.0); Chloride 96 mmol/L (98-107); Estimated Glomerular Filt Rate 53 ml/min (>60); GFR (African American) 64 ML/MIN (>60); Glucose 114 mg/dl (74-100); Sodium 133 mmol/L (136-145)
[2024-04-07 12:26] LABS: Albumin Level 3.7 g/dl (3.5-5.0); Albumin/Globulin Ratio 1.5 (1.1-1.8); Anion Gap 12.1 mEq/L (5-15); Globulin 2.5 g/dL (1.3-3.2); Potassium 4.1 mmoL/L (3.5-5.1); Total Protein,Serum 6.2 g/dl (6.3-8.2)
== END 2024-04-07 23:59 | disposition home or self-care (01) ==
LOC: LAB 11:11
PROVIDERS: PCP Family Medicine; Visit Provider Internal Medicine Medical Oncology
DX: C43.9 Malignant melanoma of skin, unspecified (principal); C78.00 Secondary malignant neoplasm of unspecified lung
CPT/HCPCS: 36415; 80053; 85025

== ENCOUNTER 2024-04-28 09:27 | Outpatient (CLI) | payer MEDICARE, OTHER, SELFPAY ==
--- NOTE | 2024-04-28 09:44 | PC.NURSE ---
0944-collected labs via venipuncture stick in left ac with butterfly needle; pt to oncology appointment.
[2024-04-28 09:45] VITALS: BMI 24.7
[2024-04-28 11:13] LABS: Alanine Aminotransferase 31 U/L (12-78); Albumin Level 4.2 g/dl (3.5-5.0); Albumin/Globulin Ratio 1.3 (1.1-1.8); Alkaline Phosphatase 81 U/L (38-126); Anion Gap 11.6 mEq/L (5-15); Aspartate Amino Transferase 42 U/L (17-59); Bilirubin,Total 0.6 mg/dl (0.2-1.3); Blood Urea Nitrogen 16 mg/dl (9-20); Calcium 9.8 mg/dl (8.4-10.2); Carbon Dioxide 29 mmol/L (22.0-30.0); Chloride 101 mmol/L (98-107); Creatinine Clearance Estimated 58 mL/min (50-200); Estimated Glomerular Filt Rate 58 ml/min (>60); GFR (African American) 70 ML/MIN (>60); Globulin 3.2 g/dL (1.3-3.2); Glucose 105 mg/dl (74-100); Potassium 4.6 mmoL/L (3.5-5.1); Sodium 137 mmol/L (136-145); Total Protein,Serum 7.4 g/dl (6.3-8.2)
[2024-04-28 11:18] LABS: Basophils % 0.6 % (0.1-2.0); Eosinophils % 0.6 % (0.1-12.0); Hematocrit 42.3 % (42.0-52.0); Hemoglobin 13.6 g/dL (14.1-18.0); Lymphocytes # 1.1 K/mm3 (0.7-4.5); Lymphocytes % 16.8 % (10-50); Mean Corpuscular HGB Conc 32.1 g/dL (31.8-35.4); Mean Corpuscular Hemoglobin 30.4 pg (27.0-31.2); Mean Corpuscular Volume 94.8 fl (80-94); Mean Platelet Volume 7.6 fl (7.4-10.4); Monocytes # 0.7 K/mm3 (0.1-1.0); Monocytes % 9.9 % (1.7-9.3); Neutrophils # 4.8 K/mm3 (1.8-7.8); Platelet Count 220 K/mm3 (142-424); Red Blood Count 4.47 M/mm3 (4.60-6.20); Red Cell Distribution Width 13.9 % (11.5-17.5); White Blood Count 6.7 K/mm3 (4.8-10.8)
== END 2024-04-28 09:45 | disposition home or self-care (01) ==
PROVIDERS: Internal Medicine Medical Oncology; PCP Family Medicine; Visit Provider Internal Medicine
DX: C43.9 Malignant melanoma of skin, unspecified (principal); C77.0 Secondary and unspecified malignant neoplasm of lymph nodes of head, face and neck; C79.31 Secondary malignant neoplasm of brain; Z79.899 Other long term (current) drug therapy
CPT/HCPCS: 36415; 80053; 85025

== ENCOUNTER 2024-06-09 08:56 | Outpatient (CLI) | payer MEDICARE, OTHER, SELFPAY ==
[2024-06-09 09:14] VITALS: BMI 24.7
--- NOTE | 2024-06-09 09:18 | PC.NURSE ---
collected labs via venipuncture in LAC. cbc and cmp drawn and sent to lab. pt tolerated well. md will call pt with results. pt verbalized understanding.
[2024-06-09 09:25] LABS: Basophils % 0.9 % (0.1-2.0); Eosinophils % 0.3 % (0.1-12.0); Hematocrit 40.1 % (42.0-52.0); Hemoglobin 13.4 g/dL (14.1-18.0); Lymphocytes # 1.2 K/mm3 (0.7-4.5); Lymphocytes % 24.3 % (10-50); Mean Corpuscular HGB Conc 33.4 g/dL (31.8-35.4); Monocytes # 0.9 K/mm3 (0.1-1.0); Monocytes % 17.6 % (1.7-9.3); Neutrophils # 2.9 K/mm3 (1.8-7.8); Neutrophils % 56.9 % (37.0-80.0); Platelet Count 158 K/mm3 (142-424); Red Blood Count 4.31 M/mm3 (4.60-6.20); Red Cell Distribution Width 14.4 % (11.5-17.5); White Blood Count 5.1 K/mm3 (4.8-10.8)
[2024-06-09 09:33] LABS: Albumin Level 3.9 g/dl (3.5-5.0); Chloride 103 mmol/L (98-107); Potassium 4.6 mmoL/L (3.5-5.1); Sodium 135 mmol/L (136-145)
[2024-06-09 09:35] LABS: Blood Urea Nitrogen 19 mg/dl (9-20); Creatinine Clearance Estimated 57 mL/min (50-200); Estimated Glomerular Filt Rate 58 ml/min (>60); GFR (African American) 70 ML/MIN (>60)
[2024-06-09 09:36] LABS: Alanine Aminotransferase 22 U/L (12-78); Albumin/Globulin Ratio 1.3 (1.1-1.8); Alkaline Phosphatase 118 U/L (38-126); Anion Gap 5.6 mEq/L (5-15); Aspartate Amino Transferase 44 U/L (17-59); Bilirubin,Total 0.6 mg/dl (0.2-1.3); Calcium 9.3 mg/dl (8.4-10.2); Carbon Dioxide 31 mmol/L (22.0-30.0); Glucose 111 mg/dl (74-100); Total Protein,Serum 6.9 g/dl (6.3-8.2)
== END 2024-06-09 09:22 | disposition home or self-care (01) ==
LOC: INF 08:59
PROVIDERS: PCP Family Medicine; Visit Provider Internal Medicine Medical Oncology
DX: C78.00 Secondary malignant neoplasm of unspecified lung (principal)
CPT/HCPCS: 36415; 80053; 85025

== ENCOUNTER 2024-07-02 09:48 | Outpatient (CLI) | payer MEDICARE, OTHER, SELFPAY ==
[2024-07-02 09:50] VITALS: BMI 24.6
--- NOTE | 2024-07-02 09:54 | PC.NURSE ---
Pt presents to outpt infusion dept to have blood drawn for labs as ordered per md prior to appt today. Venipuncture performed using butterlfy access needle to pt's rt ac x 1 stick per Cherelle Yañez RN, blood drawn and needle withdrawn. Site secured with 2x2 gauze and coban. Pt able to ambulate self to appt with oncology in the specialty clinic.
[2024-07-02 10:19] LABS: Basophils % 0.7 % (0.1-2.0); Eosinophils % 0.1 % (0.1-12.0); Hematocrit 39.8 % (42.0-52.0); Hemoglobin 12.9 g/dL (14.1-18.0); Lymphocytes # 0.7 K/mm3 (0.7-4.5); Lymphocytes % 13.8 % (10-50); Mean Corpuscular HGB Conc 32.5 g/dL (31.8-35.4); Mean Corpuscular Hemoglobin 30.2 pg (27.0-31.2); Mean Corpuscular Volume 93.1 fl (80-94); Mean Platelet Volume 8.4 fl (7.4-10.4); Monocytes # 0.8 K/mm3 (0.1-1.0); Monocytes % 15.9 % (1.7-9.3); Neutrophils # 3.4 K/mm3 (1.8-7.8); Neutrophils % 69.5 % (37.0-80.0); Platelet Count 122 K/mm3 (142-424); Red Blood Count 4.27 M/mm3 (4.60-6.20); Red Cell Distribution Width 15.3 % (11.5-17.5); White Blood Count 4.9 K/mm3 (4.8-10.8)
[2024-07-02 10:28] LABS: Albumin Level 3.9 g/dl (3.5-5.0); Chloride 101 mmol/L (98-107); Potassium 4.3 mmoL/L (3.5-5.1); Sodium 132 mmol/L (136-145)
[2024-07-02 10:31] LABS: Alanine Aminotransferase 22 U/L (12-78); Albumin/Globulin Ratio 1.3 (1.1-1.8); Alkaline Phosphatase 102 U/L (38-126); Anion Gap 6.3 mEq/L (5-15); Aspartate Amino Transferase 38 U/L (17-59); Bilirubin,Total 0.7 mg/dl (0.2-1.3); Blood Urea Nitrogen 20 mg/dl (9-20); Calcium 8.9 mg/dl (8.4-10.2); Carbon Dioxide 29 mmol/L (22.0-30.0); Creatinine Clearance Estimated 57 mL/min (50-200); Estimated Glomerular Filt Rate 58 ml/min (>60); GFR (African American) 70 ML/MIN (>60); Globulin 2.9 g/dL (1.3-3.2); Glucose 98 mg/dl (74-100); Total Protein,Serum 6.8 g/dl (6.3-8.2)
== END 2024-07-02 09:59 | disposition home or self-care (01) ==
LOC: INF 09:49
PROVIDERS: Visit Provider Internal Medicine Medical Oncology
DX: R91.8 Other nonspecific abnormal finding of lung field (principal)
CPT/HCPCS: 36415; 80053; 85025

== ENCOUNTER 2024-07-29 09:37 | Outpatient (CLI) | payer MEDICARE, OTHER, SELFPAY ==
[2024-07-29 09:45] VITALS: BMI 24.4
--- NOTE | 2024-07-29 09:50 | PC.NURSE ---
0950-collected labs via venipuncture stick in left ac with butterfly needle;pt to oncology appt.
[2024-07-29 10:09] LABS: Basophils % 0.5 % (0.1-2.0); Eosinophils % 0.8 % (0.1-12.0); Hematocrit 35.9 % (42.0-52.0); Hemoglobin 11.7 g/dL (14.1-18.0); Lymphocytes # 0.9 K/mm3 (0.7-4.5); Lymphocytes % 21.5 % (10-50); Mean Corpuscular HGB Conc 32.6 g/dL (31.8-35.4); Mean Corpuscular Hemoglobin 31.2 pg (27.0-31.2); Mean Corpuscular Volume 95.6 fl (80-94); Mean Platelet Volume 7.2 fl (7.4-10.4); Monocytes # 0.4 K/mm3 (0.1-1.0); Monocytes % 10.9 % (1.7-9.3); Neutrophils # 2.7 K/mm3 (1.8-7.8); Neutrophils % 66.5 % (37.0-80.0); Platelet Count 146 K/mm3 (142-424); Red Blood Count 3.75 M/mm3 (4.60-6.20); Red Cell Distribution Width 14.7 % (11.5-17.5); White Blood Count 4.1 K/mm3 (4.8-10.8)
[2024-07-29 10:10] LABS: Chloride 107 mmol/L (98-107)
[2024-07-29 10:11] LABS: Albumin Level 3.8 g/dl (3.5-5.0); Potassium 4.1 mmoL/L (3.5-5.1); Sodium 138 mmol/L (136-145)
[2024-07-29 10:14] LABS: Alanine Aminotransferase 24 U/L (12-78); Albumin/Globulin Ratio 1.4 (1.1-1.8); Alkaline Phosphatase 98 U/L (38-126); Anion Gap 3.1 mEq/L (5-15); Aspartate Amino Transferase 40 U/L (17-59); Bilirubin,Total 0.6 mg/dl (0.2-1.3); Blood Urea Nitrogen 19 mg/dl (9-20); Carbon Dioxide 32 mmol/L (22.0-30.0); Creatinine Clearance Estimated 56 mL/min (50-200); Estimated Glomerular Filt Rate 58 ml/min (>60); GFR (African American) 70 ML/MIN (>60); Globulin 2.8 g/dL (1.3-3.2); Total Protein,Serum 6.6 g/dl (6.3-8.2)
[2024-07-29 10:15] LABS: Calcium 8.9 mg/dl (8.4-10.2); Glucose 107 mg/dl (74-100)
== END 2024-07-29 09:55 | disposition home or self-care (01) ==
LOC: INF 09:39
PROVIDERS: PCP Family Medicine; Visit Provider Internal Medicine Medical Oncology
DX: Z85.820 Personal history of malignant melanoma of skin (principal)
CPT/HCPCS: 36415; 80053; 85025

== ENCOUNTER 2024-08-04 07:57 | Outpatient (CLI) | payer MEDICARE, OTHER, SELFPAY ==
--- NOTE | 2024-08-04 08:02 | CT_ITS ---
FINAL REPORT TECHNIQUE: After the administration of intravenous contrast, axial images through the chest were performed by computed tomography.This study was performed with techniques to keep radiation doses as low as reasonably achievable, (ALARA). Individualized dose reduction techniques using automated exposure control or adjustment of mA and/or kV according to the patient''s size were employed. CLINICAL HISTORY: MELANOMA COMPARISON: 03/18/2024 FINDINGS: Right paratracheal adenopathy has improved measuring 23 x 14 mm, previously measured 56 x 42 mm. Other areas of paratracheal adenopathy has improved. No new adenopathy is identified. The heart size is normal. There is no pericardial or pleural effusion. There has been resolution of most of the previously seen pulmonary nodules. Residual nodule in the right lower lobe measures up to 9 mm, previously measured 16 mm. No new pulmonary nodule is identified. IMPRESSION: Marked improvement of intrathoracic metastatic disease with residual components as detailed above. Reviewed, Interpreted and Dictated by Jeff Chaparro MD Transcribed by Nicci Reno Authenticated and [facility]
--- NOTE | 2024-08-04 08:02 | CT_ITS ---
FINAL REPORT TECHNIQUE: Oral and IV contrast enhanced exam This study was performed with techniques to keep radiation doses as low as reasonably achievable, (ALARA). Individualized dose reduction techniques using automated exposure control or adjustment of mA and/or kV according to the patient''s size were employed. CLINICAL HISTORY: melanoma COMPARISON: 03/18/2024 FINDINGS: Abdomen: There is mild increased size in lower pole of left renal lesion measuring 10 mm, previously measured 7 mm. This could represent a primary renal neoplasm, less likely metastasis. The remaining solid organs are unremarkable. No bowel obstruction is present. There is no free air. No fluid collection is seen. There is a mildly enlarged lymph node along the left celiac axis adjacent to the left adrenal gland measuring 11 x 7 mm, unchanged. There is hazy density of the mesenteric fat, may represent mesenteric panniculitis. Pelvis: No pelvic mass or adenopathy. There is mild prostate enlargement. The bladder is unremarkable. There is no free fluid. IMPRESSION: Nonspecific mild adenopathy, favor benign. Mild interval enlargement of lower pole left renal lesion suspicious for neoplasm, favor primary renal tumor over metastasis. Reviewed, Interpreted and Dictated by Jeff Chaparro MD Transcribed by Nicci eRno Authenticated and [facility]
[2024-08-04] MEDS: SODIUM CHLORIDE 0.9% 10ML SYR (RAD ONLY) 10 ML IV (08:27)
[2024-08-04] MEDS: BARIUM SULFATE(READI-CAT2);450ML BOTTLE 450 ML PO (08:27)
[2024-08-04] MEDS: IOPAMIDOL-370 (76%);100ML BOTTLE 75 ML IV (08:27)
== END 2024-08-04 23:59 | disposition home or self-care (01) ==
LOC: RAD 07:58
PROVIDERS: PCP Family Medicine; Visit Provider Internal Medicine Medical Oncology
DX: C43.9 Malignant melanoma of skin, unspecified (principal); C78.00 Secondary malignant neoplasm of unspecified lung
CPT/HCPCS: 71260; 74177; Q9967

== ENCOUNTER 2024-08-10 08:06 | Outpatient (CLI) | payer MEDICARE, OTHER, SELFPAY ==
--- NOTE | 2024-08-10 08:10 | MR_ITS ---
FINAL REPORT CLINICAL HISTORY: MELANOMA. COMPARISON: 02/21/2024 FINDINGS: Multiplanar MR imaging of the brain was performed without and with contrast. There is extensive abnormal signal throughout the periventricular and subcortical white matter consistent with chronic ischemic change. There are no foci of cortical signal abnormality seen. Previously noted focus of abnormal enhancement in the posterior left frontal lobe has decreased in size now measuring 3 mm. This is best seen on image 18 of series 11. No other enhancing nodule is seen. Again noted is a venous angioma in the medial posterior right frontal lobe..There is no evidence of intracranial hemorrhage or mass. No abnormal extra-axial fluid collection is seen. The ventricular size is within normal limits. There is no evidence of shift of the midline structures. The posterior fossa and brainstem have an unremarkable appearance. No area of abnormal restricted diffusion is identified. Normal major vessel vascular flow voids are noted. IMPRESSION: Extensive changes of chronic microvascular ischemia. Venous angioma. Single intracranial metastasis, decreased in size from prior exam. Reviewed, Interpreted and Dictated by Mark Hyman MD Transcribed by Edilma Lizarraga Authenticated and . [facility]
[2024-08-10] MEDS: SODIUM CHLORIDE 0.9% 10ML SYR (RAD ONLY) 10 ML IV (09:05)
[2024-08-10] MEDS: GADOTERIDOL INJ 20ML SYRINGE 17 ML IV (09:05)
== END 2024-08-10 23:59 | disposition home or self-care (01) ==
LOC: RAD 08:07
PROVIDERS: PCP Family Medicine; Visit Provider Internal Medicine Medical Oncology
DX: C43.9 Malignant melanoma of skin, unspecified (principal); C78.00 Secondary malignant neoplasm of unspecified lung
CPT/HCPCS: 70553; A9576

== ENCOUNTER 2024-09-03 10:19 | Outpatient (CLI) | payer MEDICARE, OTHER, SELFPAY ==
[2024-09-03 10:25] VITALS: BMI 24.8
--- NOTE | 2024-09-03 10:26 | PC.NURSE ---
1026-l.mendel fenton collected labs via venipuncture stick in left ac with butterfly needle.pt to oncology appt.
[2024-09-03 10:37] LABS: Albumin Level 3.9 g/dl (3.5-5.0); Chloride 102 mmol/L (98-107); Potassium 4.4 mmoL/L (3.5-5.1); Sodium 135 mmol/L (136-145)
[2024-09-03 10:39] LABS: Basophils % 0.6 % (0.1-2.0); Eosinophils % 0.2 % (0.1-12.0); Hematocrit 37.2 % (42.0-52.0); Hemoglobin 12.5 g/dL (14.1-18.0); Lymphocytes % 22.1 % (10-50); Mean Corpuscular HGB Conc 33.7 g/dL (31.8-35.4); Mean Corpuscular Hemoglobin 30.2 pg (27.0-31.2); Mean Corpuscular Volume 89.7 fl (80-94); Mean Platelet Volume 8.4 fl (7.4-10.4); Neutrophils # 3.5 K/mm3 (1.8-7.8); Neutrophils % 77.1 % (37.0-80.0); Platelet Count 123 K/mm3 (142-424); Red Blood Count 4.14 M/mm3 (4.60-6.20); Red Cell Distribution Width 14.9 % (11.5-17.5); White Blood Count 4.5 K/mm3 (4.8-10.8)
[2024-09-03 10:40] LABS: Alanine Aminotransferase 19 U/L (12-78); Albumin/Globulin Ratio 1.3 (1.1-1.8); Alkaline Phosphatase 93 U/L (38-126); Anion Gap 7.4 mEq/L (5-15); Aspartate Amino Transferase 33 U/L (17-59); Bilirubin,Total 0.6 mg/dl (0.2-1.3); Blood Urea Nitrogen 22 mg/dl (9-20); Calcium 9.2 mg/dl (8.4-10.2); Carbon Dioxide 30 mmol/L (22.0-30.0); Creatinine Clearance Estimated 53 mL/min (50-200); Estimated Glomerular Filt Rate 53 ml/min (>60); GFR (African American) 64 ML/MIN (>60); Glucose 96 mg/dl (74-100); Total Protein,Serum 6.9 g/dl (6.3-8.2)
== END 2024-09-03 10:27 | disposition home or self-care (01) ==
LOC: INF 10:20
PROVIDERS: PCP Family Medicine; Visit Provider Internal Medicine Medical Oncology
DX: C78.00 Secondary malignant neoplasm of unspecified lung (principal)
CPT/HCPCS: 36415; 80053; 85025

== ENCOUNTER 2024-10-01 09:36 | Outpatient (CLI) | payer MEDICARE, OTHER, SELFPAY ==
--- NOTE | 2024-10-01 09:45 | PC.NURSE ---
Venipuncture draw in RAC. Pt tolerated well.
[2024-10-01 10:02] LABS: Albumin Level 4.2 g/dl (3.5-5.0); Chloride 102 mmol/L (98-107); Potassium 4.4 mmoL/L (3.5-5.1); Sodium 137 mmol/L (136-145)
[2024-10-01 10:05] LABS: Alanine Aminotransferase 22 U/L (12-78); Albumin/Globulin Ratio 1.4 (1.1-1.8); Alkaline Phosphatase 100 U/L (38-126); Anion Gap 10.4 mEq/L (5-15); Aspartate Amino Transferase 35 U/L (17-59); Bilirubin,Total 0.6 mg/dl (0.2-1.3); Blood Urea Nitrogen 16 mg/dl (9-20); Calcium 9.4 mg/dl (8.4-10.2); Carbon Dioxide 29 mmol/L (22.0-30.0); Estimated Glomerular Filt Rate 64 ml/min (>60); GFR (African American) 78 ML/MIN (>60); Glucose 103 mg/dl (74-100); Total Protein,Serum 7.2 g/dl (6.3-8.2)
[2024-10-01 10:07] LABS: Basophils # 0.1 K/mm3 (0-0.2); Basophils % 1.1 % (0.1-2.0); Eosinophils % 0.4 % (0.1-12.0); Hematocrit 37.2 % (42.0-52.0); Hemoglobin 12.4 g/dL (14.1-18.0); Lymphocytes # 0.8 K/mm3 (0.7-4.5); Lymphocytes % 14.1 % (10-50); Mean Corpuscular HGB Conc 33.4 g/dL (31.8-35.4); Mean Corpuscular Hemoglobin 30.4 pg (27.0-31.2); Mean Platelet Volume 7.7 fl (7.4-10.4); Monocytes # 0.8 K/mm3 (0.1-1.0); Neutrophils # 3.8 K/mm3 (1.8-7.8); Neutrophils % 70.5 % (37.0-80.0); Platelet Count 152 K/mm3 (142-424); Red Blood Count 4.09 M/mm3 (4.60-6.20); Red Cell Distribution Width 14.9 % (11.5-17.5); White Blood Count 5.4 K/mm3 (4.8-10.8)
== END 2024-10-01 09:45 | disposition home or self-care (01) ==
LOC: INF 09:39
PROVIDERS: PCP Family Medicine; Visit Provider Internal Medicine Medical Oncology
DX: C43.9 Malignant melanoma of skin, unspecified (principal)
CPT/HCPCS: 36415; 80053; 85025

== ENCOUNTER 2024-10-28 07:43 | Outpatient (CLI) | payer MEDICARE, OTHER, SELFPAY ==
--- NOTE | 2024-10-28 07:45 | CT_ITS ---
FINAL REPORT TECHNIQUE: After the administration of intravenous contrast, axial images through the chest were performed by computed tomography. Coronal and sagittal reconstructions were obtained and reviewed. This study was performed with techniques to keep radiation doses as low as reasonably achievable, (ALARA). Individualized dose reduction techniques using automated exposure control or adjustment of mA and/or kV according to the patient's size were employed. CLINICAL HISTORY: f/u lung cancer, pt stated he has been on chemo pills COMPARISON: 08/04/2024 FINDINGS: There is a stable right lower lobe nodule measuring 9 mm best seen on image 163 of series 2. No new pulmonary lesions are identified. There is no significant pleural effusion. There is no significant pericardial effusion. A right paratracheal node is stable measuring 23 x 13 mm. No new adenopathy is seen. IMPRESSION: Stable right lower lobe nodule and mild right paratracheal node. Reviewed, Interpreted and Dictated by Jeff Chaparro MD Transcribed by Monae Celis Authenticated and [facility]
--- NOTE | 2024-10-28 07:45 | CT_ITS ---
FINAL REPORT TECHNIQUE: Oral and IV contrast enhanced exam. Coronal and sagittal reconstructions were obtained and reviewed. This study was performed with techniques to keep radiation doses as low as reasonably achievable, (ALARA). Individualized dose reduction techniques using automated exposure control or adjustment of mA and/or kV according to the patient''s size were employed. CLINICAL HISTORY: f/u lung cancer, pt stated he has been on chemo pills COMPARISON: 08/04/2024 FINDINGS: Abdomen: The lower pole left renal lesion now measures 11 mm, previously measured 10 mm but not significantly changed. There is a new lower pole left renal lesion measuring 5 mm, probably representing a cyst. The remainder solid abdominal organs are unremarkable. The gallbladder is negative. The bowel is unremarkable. No bowel obstruction is present. There is no free air. No fluid collection is seen. 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 There is a stable enlarged lymph node measuring 11 x 6 mm along the left celiac axis anterior to the left adrenal gland. Pelvis: The appendix is normal. No bowel wall thickening is present. There is mild prostate enlargement. The bladder is unremarkable. There is no free fluid. No pelvic mass is seen. IMPRESSION: No convincing evidence for metastatic disease. Redemonstration of an 11 mm left renal lesion which could represent neoplasm. Reviewed, Interpreted and Dictated by Jeff Chaparro MD Transcribed by Monae Celis Authenticated and [facility]
[2024-10-28] MEDS: IOPAMIDOL-370 (76%);100ML BOTTLE 75 ML IV (08:14)
[2024-10-28] MEDS: SODIUM CHLORIDE 0.9% 10ML SYR (RAD ONLY) 10 ML IV (08:14)
== END 2024-10-28 23:59 | disposition home or self-care (01) ==
LOC: RAD 07:45
PROVIDERS: PCP Family Medicine; Visit Provider Internal Medicine Medical Oncology
DX: C78.00 Secondary malignant neoplasm of unspecified lung (principal)
CPT/HCPCS: 71260; 74177; Q9967

== ENCOUNTER 2024-11-09 08:10 | Emergency (ER) | payer MEDICARE, OTHER, SELFPAY ==
[2024-11-09 08:10] VITALS: BP 120/94; PULSE 75; RESP 18; TEMP 37.5; O2SAT 97; BMI 25.0
--- NOTE | 2024-11-09 08:43 | CT_ITS ---
FINAL REPORT TECHNIQUE: Thin section axial images were obtained through the lumbar spine without contrast. Sagittal and coronal reconstruction images were obtained from the axial data. Exam was performed using dose reduction techniques. CLINICAL HISTORY: L spine, right SI joint pain, h/o met ca. COMPARISON: 10/28/2024 FINDINGS: There is no acute fracture or acute malalignment of the lumbar spine. Vertebral body height is preserved. There is mild multilevel degenerative disease most pronounced at L5-S1 and unchanged from prior exam. There is no significant central stenosis. Paraspinal soft tissues are within normal limits. There is no paraspinal mass or fluid collection. IMPRESSION: No acute abnormality of the lumbar spine. Mild multilevel degenerative disease. Reviewed, Interpreted and Dictated by Love Rueda MD Transcribed by Edilma Lizarraga Authenticated and [facility]
--- NOTE | 2024-11-09 08:43 | CT_ITS ---
FINAL REPORT TECHNIQUE: Axial imaging of the pelvis was obtained without contrast.This study was performed with techniques to keep radiation doses as low as reasonably achievable, (ALARA). Individualized dose reduction technique using automated exposure control or adjustment of mA and/or kV according to the patient's size were employed. CLINICAL HISTORY: lumbar/right SI joint pain, h/o met ca. COMPARISON: 07/31/2024, 10/28/2024 FINDINGS: There is a lucency through the anterior column of the right acetabulum, favor subacute or chronic. This was seen on prior CT. No lucent lesions are identified. There are small sclerotic lesions in the bilateral iliac wings which are unchanged. 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 Abnormal attenuation is seen within the mesentery of the upper abdomen, unchanged from recent CT. There is no acute abnormality of the GI tract or remaining soft tissues. IMPRESSION: 1. No acute abnormality of the pelvis. Chronic defect of the anterior column of the right acetabulum. 2. 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 Reviewed, Interpreted and Dictated by Love Rueda MD Transcribed by Edilma Lizarraga Authenticated and [facility]
--- NOTE | 2024-11-09 08:47 | ED_ITS ---
Discharge Plan Disposition Patient Disposition: Home, Self-Care Prescriptions Prescriptions: New lidocaine 4 % adhesive patch,medicated 1 patch topical DAILY Qty: 5 0RF Rx Instructions: may leave on for up to 12 hrs ibuprofen 800 mg tablet 800 mg PO TID PRN (Reason: pain) 7 Days Qty: 20 0RF cyclobenzaprine 5 mg tablet 5 mg PO TID PRN (Reason: muscle spasm) 5 Days Qty: 15 0RF No Action glucosamine-chondroitin [Osteo Bi-Flex] 250-200 mg tablet 1 tab PO DAILY omeprazole magnesium [Acid Inspector Final [employer] Electrical (omeprazole)] 20 mg capsule,delayed release(DR/EC) 20 mg PO DAILY Qty: 30 5RF Referrals Follow up/Referrals: Yao Garcia MD [Primary Care Provider] - See instructions Activity Restrictions/Add. Instructions Additional Instructions/Restrictions: No evidence of metastatic disease in your spine or pelvis. Also clinically no concern for other emergent medical condition. Your symptoms are consistent with sacroiliitis which is a nonspecific inflammatory condition in that region. Please take Tylenol as well as your prescribed medicines as needed return with any significant worsening of your symptoms otherwise follow-up with your primary care doctor. Clinical Impressions Clinical Impression: Sacro-iliac pain Instructions Patient Instructions: DI for Low Back Pain Print Language Print Language: Japanese Discharge ED Provider: Lacho Wilson General Adult HPI General Chief complaint: Back Pain/Injury Stated complaint: Back Pain Time Seen by Provider: 11/09/24 08:38 Mode of Arrival: EMS Source of Information: Patient Limitations: No Limitations Description of Symptoms (Recalled from ER Triage Doc. by RN): Pt c/o R lower back pain that has been persistantly worse in the last 24 hr. Denies any fall, trauma, or new injury. He has a hx of back surgery. He also reports chills, and general body aches. Temp is 99.5. Denies any cough, known fever, or n/v/d. He is on Chemo pills for Melanoma & Lung cancer. He follows Dr. Mancuso with oncology. Denies any urinary incontinence, parethesia to RLE, or saddle area numbness. History of Present Illness HPI narrative: Patient is an 84-year-old male with a history of metastatic melanoma who presents today with right sacroiliac pain. This started without trauma this morning. States is worse with any type of movement or touch nonradiating he denies any urinary retention or urinary or bowel incontinence saddle anesthesia lower extremity paralysis or weakness paresthesias etc. Pain is localized and worsening with movement and touch. Actually states he is feeling much better than he did this morning as he is in currently a position of comfort. Related Data Home Medications ?Medication ?Instructions ?Recorded ?Confirmed glucosamine-chondroitin 250 mg-200 1 tab PO DAILY joint supplement 02/06/23 10/29/24 mg tablet (Osteo Bi-Flex) Previous Rx's ?Medication ?Instructions ?Recorded omeprazole magnesium 20 mg 20 mg PO DAILY #30 caps 08/31/24 capsule,delayed release (Acid Inspector [employer] (omeprazole)) cyclobenzaprine 5 mg tablet 5 mg PO TID PRN muscle spasm 5 11/09/24 days #15 tabs ibuprofen 800 mg tablet 800 mg PO TID PRN pain 7 days #20 11/09/24 tabs lidocaine 4 % topical patch 1 patch topical DAILY #5 ea 11/09/24 Allergies Allergy/AdvReac Type Severity Reaction Status Date / Time No Known Allergies Allergy Verified 10/29/24 10:04 [facility] Disclaimer: The information contained in this section may have been updated after the patient was seen, as this information can be updated by other users. Medical History History of smoking Dyspnea on exertion Lung mass Hilar lymphadenopathy Hx of melanoma of skin Secondary malignant neoplasm of right lung Melanoma metastatic to lung Melanoma metastatic to lung History of COVID-19 History of gastroesophageal reflux (GERD) History of cataract Chest pain Lung mass Heart murmur Atypical chest pain Skin cancer Fatigue Coronary artery disease Diastolic dysfunction Surgical History History of bronchoscopy History of tonsillectomy History of back surgery herniated disc melanoma left side Family History Other Family history of cancer Family history of diabetes mellitus type II Social History Smoking Status: Never smoker alcohol intake: never substance use type: denies use current occupational status: retired Travel in the last 8 weeks: None household members: spouse housing: house marital status: current occupational exposures/hazards: No caffeine: Yes special emir needs: No agree to transfusion: No do you feel safe at home: Yes victim of physical abuse: No victim of emotional abuse: No victim of sexual abuse: No would you like helpful sources: No Have you lived/traveled outside US in past 30 days?: No Contact w/someone who lives/traveled outside US past 30 days?: No Exposure to someone with infectious disease in past 14 days?: No Do you have a fever (greater than 100.4 F or 38 C)?: No Have you tested positive for COVID-19: No Exposed to someone with COVID-19 in past 14 days?: No Do you have a sore throat?: No Do you have a cough?: No Do you have any weakness?: No Do you have any diarrhea?: No Are you experiencing any unusual bleeding?: No Do you have any muscle aches/pain?: Yes Do you have any abdominal pain?: No Are you experiencing loss of taste or smell?: No Other Medical History Have you received the Flu Vaccine for this season: Yes Have you received the Pneumonia Vaccine: Yes ROS Obtained: Yes All systems reviewed & no additional complaints except as documented Physical Exam General General appearance: alert Respiratory Respiratory exam: Present normal lung sounds bilaterally Cardiovascular Cardiovascular exam: Present regular rate Back Exam Back 1 view image: 2 1. Tenderness to palpation no midline pain neurovasc intact distal to this region Neurological Exam Neurological exam: Present alert and oriented X3 Medical Decision Making Medical Records Screening: Per USPSTF and CDC recommendations, given the prevalence of disease in our region, it is our hospital?s policy to screen for HIV and viral Hepatitis for all patients aged 18 and over and those with ongoing risk factors. Vin Inquiry Pt receiving controlled substance: No Vital Signs: 11/09/24 08:10 11/09/24 09:00 Temperature 99.5 F Temperature Source Oral Pulse Rate 66 Pulse Rate [Right] 75 Respiratory Rate 18 Blood Pressure [Right Arm] 120/94 H Blood Pressure Mean [Right Arm] 102 Blood Pressure Source [Right Arm] Automatic Cuff 02 Sat by Pulse Oximetry 97 98 Oxygen Delivery Method Room Air Room Air Orders (Tests/Meds): ED MEDICATIONS Discontinued Medications Generic Name Dose Route Start Last Admin Trade Name Freq PRN Reason Stop Dose Admin Acetaminophen 1,000 mg 11/09/24 08:43 11/09/24 08:54 Acetaminophen 500mg Tab PO 11/09/24 08:44 1,000 mg ONCE ONE Administration Cyclobenzaprine HCl 5 mg 11/09/24 08:43 11/09/24 08:56 Cyclobenzaprine 10mg Tablet PO 11/09/24 08:44 5 mg ONCE ONE Administration Ketorolac Tromethamine 30 mg 11/09/24 08:43 11/09/24 08:57 Ketorolac 30mg/Ml Vial IM 11/09/24 08:44 30 mg ONCE ONE Administration Lidocaine 1 each 11/09/24 08:43 11/09/24 08:57 Lidocaine 5% Transdermal Patch TP 11/09/24 08:44 1 each ONCE ONE Administration ORDERS Category Date Time Status CT bony pelvis Stat Cat Scan 11/09/24 08:[address] lumbar spine wo con Stat Cat Scan 11/09/24 08:43 Completed HIV (1&2) Antibody Rapid Stat Lab 11/09/24 08:31 Ordered Hep C Ab with Reflex to RNA Stat Lab 11/09/24 08:31 Ordered Medical Decision Narrative: 84-year-old with above history and physical given his history of metastatic cancer only main thing on the differential that is concerning would be metastatic lesion in this area from a bony standpoint which is unlikely but possible. 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 Symptomatic medications have been administered will reassess after his scans are performed and medications are administered. Reassessment 10:[address] scans performed which I personally interpreted which show no acute pathology specifically no evidence of any metastatic disease radiology read consistent with this patient feeling much better on reassessment clinically supportive medications prescribed return precautions emphasized patient was discharged improved and stable condition. Critical Care Critical Care Time Critical Care Time: No
[2024-11-09] MEDS: ACETAMINOPHEN 500MG TAB 1000 MG PO (08:54)
[2024-11-09] MEDS: CYCLOBENZAPRINE 10MG TABLET 5 MG PO (08:56)
[2024-11-09] MEDS: LIDOCAINE 5% TRANSDERMAL PATCH 1 EACH TP (08:57)
[2024-11-09] MEDS: KETOROLAC 30MG/ML VIAL 30 MG IM (08:57)
[2024-11-09 09:00] VITALS: PULSE 66; O2SAT 98
[2024-11-09 10:02] VITALS: BP 100/53; PULSE 64; RESP 17; TEMP 37.2; O2SAT 98
== END 2024-11-09 10:05 | disposition home or self-care (01) ==
PROVIDERS: Emergency Provider Student in an Organized Health Care Education/Training Program; PCP Family Medicine
DX: M53.3 Sacrococcygeal disorders, not elsewhere classified (principal); M54.50 Low back pain, unspecified; M79.10 Myalgia, unspecified site; R50.9 Fever, unspecified
CPT/HCPCS: 72131; 72192; 96372; 99284; J1885

== ENCOUNTER 2024-11-23 13:37 | Outpatient (CLI) | payer MEDICARE, OTHER, SELFPAY ==
--- NOTE | 2024-11-23 13:51 | MR_ITS ---
FINAL REPORT TECHNIQUE: Multiplanar MR, without and with gadolinium enhancement CLINICAL HISTORY: lung cancer ro mets COMPARISON: 08/10/2024 FINDINGS: Diffusion sequences show no signal abnormality to indicate acute infarct. There are scattered white matter signal changes compatible with mild chronic microvascular disease. There is no evidence of edema or hemorrhage. The previously noted small enhancing lesion in the left frontoparietal region is no longer evident. No new abnormal enhancement identified. The right frontal deep venous anomaly is again noted on postcontrast images. The ventricles are normal. Major vascular flow voids are intact. IMPRESSION: Previously noted left frontoparietal metastasis no longer evident. No new sites of disease. Reviewed, Interpreted and Dictated by Jeff Chaparro MD Transcribed by Monae Celis Authenticated and [facility]
[2024-11-23 14:03] LABS: Basophils % 0.4 % (0.1-2.0); Eosinophils # 0.1 K/mm3 (0.0-0.4); Eosinophils % 0.8 % (0.1-12.0); Hematocrit 34.6 % (42.0-52.0); Hemoglobin 11.4 g/dL (14.1-18.0); Lymphocytes # 0.9 K/mm3 (0.7-4.5); Lymphocytes % 13.2 % (10-50); Mean Corpuscular HGB Conc 32.9 g/dL (31.8-35.4); Mean Corpuscular Hemoglobin 30.2 pg (27.0-31.2); Mean Corpuscular Volume 91.8 fl (80-94); Mean Platelet Volume 9.4 fl (7.4-10.4); Monocytes # 1.1 K/mm3 (0.1-1.0); Monocytes % 14.7 % (1.7-9.3); Neutrophils # 4.9 K/mm3 (1.8-7.8); Neutrophils % 69.5 % (37.0-80.0); Platelet Count 183 K/mm3 (142-424); Red Blood Count 3.77 M/mm3 (4.60-6.20); Red Cell Distribution Width 13.7 % (11.5-17.5); White Blood Count 7.1 K/mm3 (4.8-10.8)
[2024-11-23 14:19] LABS: Alanine Aminotransferase 27 U/L (12-78); Albumin Level 3.7 g/dl (3.5-5.0); Albumin/Globulin Ratio 1.5 (1.1-1.8); Alkaline Phosphatase 131 U/L (38-126); Anion Gap 8.3 mEq/L (5-15); Aspartate Amino Transferase 34 U/L (17-59); Bilirubin,Total 0.3 mg/dl (0.2-1.3); Blood Urea Nitrogen 25 mg/dl (9-20); Calcium 9.3 mg/dl (8.4-10.2); Carbon Dioxide 30 mmol/L (22.0-30.0); Chloride 101 mmol/L (98-107); Estimated Glomerular Filt Rate 72 ml/min (>60); GFR (African American) 87 ML/MIN (>60); Globulin 2.5 g/dL (1.3-3.2); Glucose 96 mg/dl (74-100); Potassium 4.3 mmoL/L (3.5-5.1); Sodium 135 mmol/L (136-145); Total Protein,Serum 6.2 g/dl (6.3-8.2)
[2024-11-23] MEDS: SODIUM CHLORIDE 0.9% 10ML SYR (RAD ONLY) 10 ML IV (14:43)
[2024-11-23] MEDS: GADOTERIDOL INJ 20ML SYRINGE 18 ML IV (14:43)
== END 2024-11-23 23:59 | disposition home or self-care (01) ==
LOC: RAD 13:38
PROVIDERS: PCP Family Medicine; Visit Provider Internal Medicine Medical Oncology
DX: C78.00 Secondary malignant neoplasm of unspecified lung (principal)
CPT/HCPCS: 36415; 70553; 80053; 85025; A9576

== ENCOUNTER 2024-12-24 09:03 | Outpatient (CLI) | payer MEDICARE, OTHER, SELFPAY ==
--- NOTE | 2024-12-24 09:11 | PC.NURSE ---
0911-collected labs via venipuncture stick left ac with butterfly needle; pt to oncology appt.
[2024-12-24 09:34] LABS: Chloride 103 mmol/L (98-107)
[2024-12-24 09:35] LABS: Basophils % 0.3 % (0.1-2.0); Eosinophils % 0.6 % (0.1-12.0); Hemoglobin 11.6 g/dL (14.1-18.0); Lymphocytes # 0.9 K/mm3 (0.7-4.5); Lymphocytes % 12.8 % (10-50); Mean Corpuscular HGB Conc 32.2 g/dL (31.8-35.4); Mean Corpuscular Hemoglobin 29.7 pg (27.0-31.2); Mean Corpuscular Volume 92.1 fl (80-94); Mean Platelet Volume 9.8 fl (7.4-10.4); Monocytes # 1.5 K/mm3 (0.1-1.0); Monocytes % 21.3 % (1.7-9.3); Neutrophils # 4.4 K/mm3 (1.8-7.8); Neutrophils % 64.4 % (37.0-80.0); Platelet Count 136 K/mm3 (142-424); Potassium 4.5 mmoL/L (3.5-5.1); Red Blood Count 3.91 M/mm3 (4.60-6.20); Red Cell Distribution Width 14.1 % (11.5-17.5); Sodium 137 mmol/L (136-145); White Blood Count 6.8 K/mm3 (4.8-10.8)
[2024-12-24 09:37] LABS: Alanine Aminotransferase 23 U/L (12-78); Anion Gap 9.5 mEq/L (5-15); Aspartate Amino Transferase 32 U/L (17-59); Blood Urea Nitrogen 18 mg/dl (9-20); Carbon Dioxide 29 mmol/L (22.0-30.0); Estimated Glomerular Filt Rate 72 ml/min (>60); GFR (African American) 87 ML/MIN (>60); MANUAL DIFFERENTIAL MANUAL DIFFERENTIAL (MANUAL DIFF)
[2024-12-24 09:38] LABS: Albumin/Globulin Ratio 1.4 (1.1-1.8); Alkaline Phosphatase 87 U/L (38-126); Bilirubin,Total 0.3 mg/dl (0.2-1.3); Calcium 9.3 mg/dl (8.4-10.2); Globulin 2.8 g/dL (1.3-3.2); Glucose 104 mg/dl (74-100); Total Protein,Serum 6.8 g/dl (6.3-8.2)
[2024-12-24 10:55] LABS: Lymphocytes % 16 % (10-50); Monocytes % 20 % (2-9); Neutrophils % 62 % (42-76); Total Cells Counted 50
[2024-12-24 10:56] LABS: Platelet Estimate Slight Decrease; RBC Morphology Normal
== END 2024-12-24 09:13 | disposition home or self-care (01) ==
LOC: INF 09:04
PROVIDERS: PCP Family Medicine; Visit Provider Internal Medicine Medical Oncology
DX: C78.00 Secondary malignant neoplasm of unspecified lung (principal)
CPT/HCPCS: 36415; 80053; 85007; 85025

== ENCOUNTER 2025-01-11 08:34 | Outpatient (CLI) | payer MEDICARE, OTHER, SELFPAY ==
--- NOTE | 2025-01-11 08:41 | CT_ITS ---
FINAL REPORT TECHNIQUE: After the administration of intravenous contrast, axial images were obtained through the abdomen and pelvis by computed tomography. This study was performed with technique to keep radiation doses as low as reasonably achievable, (ALARA). Individualized dose reduction techniques using automated exposure control or adjustment of the MA and/or KV according to the patient's size were employed. CLINICAL HISTORY: melanoma COMPARISON: 10/28/2024 FINDINGS: Abdomen: The lung bases are clear. The liver is normal in size and attenuation. The spleen is unremarkable. The adrenals are normal. The pancreas is unremarkable. There is an indeterminate, hypodense lesion in the medial lower left kidney on image 58 measuring 10 mm. This is denser than that of a simple cyst. Previously described smaller cyst in the lower pole of left kidney is not appreciated on this exam. The aorta is normal in caliber. There is no free fluid. There is a borderline enlarged left periadrenal lymph node which is stable. Pelvis: The appendix is normal. There is fecal impaction of the distal colon. There are small bilateral inguinal hernias containing fat. The urinary bladder is unremarkable. There is no free fluid or adenopathy. IMPRESSION: No convincing evidence of metastatic disease. Stable, indeterminate lower pole left renal lesion, favor complex cyst over neoplasm. Recommend continued follow-up. Reviewed, Interpreted and Dictated by Jeff Chaparro MD Transcribed by Edilma Lizarraga Authenticated and [facility]
--- NOTE | 2025-01-11 08:41 | CT_ITS ---
FINAL REPORT TECHNIQUE: After the administration of intravenous contrast, axial images through the chest were performed by computed tomography.This study was performed with techniques to keep radiation doses as low as reasonably achievable, (ALARA). Individualized dose reduction techniques using automated exposure control or adjustment of mA and/or kV according to the patient''s size were employed. CLINICAL HISTORY: melanoma COMPARISON: 10/28/2024 FINDINGS: There is a stable right paratracheal lymph node measuring 21 x 13 mm. No new adenopathy is seen. The heart size is normal. There is no pericardial or pleural effusion. Limited images of the upper abdomen are unremarkable. There is a stable, 9 mm nodule in the superior segment of the right lower lobe on image 44 of series 4. No new pulmonary lesion is seen. IMPRESSION: Stable, nonspecific right upper lobe nodule with borderline right paratracheal adenopathy. No new abnormality. Reviewed, Interpreted and Dictated by Jeff Chaparro MD Transcribed by Edilma Lizarraga Authenticated and . [facility]
[2025-01-11] MEDS: IOPAMIDOL-370 (76%);100ML BOTTLE 75 ML IV (09:05)
[2025-01-11] MEDS: SODIUM CHLORIDE 0.9% 10ML SYR (RAD ONLY) 10 ML IV (09:05)
== END 2025-01-11 23:59 | disposition home or self-care (01) ==
LOC: RAD 08:36
PROVIDERS: PCP Family Medicine; Visit Provider Internal Medicine Medical Oncology
DX: R91.8 Other nonspecific abnormal finding of lung field (principal); C78.00 Secondary malignant neoplasm of unspecified lung
CPT/HCPCS: 71260; 74177; Q9967

== ENCOUNTER 2025-01-22 09:10 | Outpatient (CLI) | payer MEDICARE, OTHER, SELFPAY ==
[2025-01-22 09:15] VITALS: BMI 25.2
--- NOTE | 2025-01-22 09:21 | PC.NURSE ---
0921-collected labs via venipuncture stick in left ac with butterfly needle;pt to oncology appt.
[2025-01-22 09:30] LABS: Basophils % 0.6 % (0.1-2.0); Eosinophils % 0.6 % (0.1-12.0); Hematocrit 34.6 % (42.0-52.0); Hemoglobin 11.4 g/dL (14.1-18.0); Lymphocytes # 0.8 K/mm3 (0.7-4.5); Lymphocytes % 16.8 % (10-50); Mean Corpuscular HGB Conc 32.9 g/dL (31.8-35.4); Mean Corpuscular Hemoglobin 29.8 pg (27.0-31.2); Mean Corpuscular Volume 90.3 fl (80-94); Mean Platelet Volume 9.4 fl (7.4-10.4); Monocytes # 0.8 K/mm3 (0.1-1.0); Monocytes % 16.4 % (1.7-9.3); Neutrophils # 3.1 K/mm3 (1.8-7.8); Neutrophils % 64.4 % (37.0-80.0); Platelet Count 126 K/mm3 (142-424); Red Blood Count 3.83 M/mm3 (4.60-6.20); Red Cell Distribution Width 13.6 % (11.5-17.5); White Blood Count 4.8 K/mm3 (4.8-10.8)
[2025-01-22 09:37] LABS: Alanine Aminotransferase 24 U/L (12-78); Albumin/Globulin Ratio 1.5 (1.1-1.8); Alkaline Phosphatase 115 U/L (38-126); Anion Gap 8.3 mEq/L (5-15); Aspartate Amino Transferase 36 U/L (17-59); Bilirubin,Total 0.4 mg/dl (0.2-1.3); Blood Urea Nitrogen 18 mg/dl (9-20); Calcium 9.4 mg/dl (8.4-10.2); Carbon Dioxide 30 mmol/L (22.0-30.0); Chloride 104 mmol/L (98-107); Creatinine Clearance Estimated 63 mL/min (50-200); Estimated Glomerular Filt Rate 64 ml/min (>60); GFR (African American) 78 ML/MIN (>60); Globulin 2.6 g/dL (1.3-3.2); Glucose 84 mg/dl (74-100); Potassium 4.3 mmoL/L (3.5-5.1); Sodium 138 mmol/L (136-145); Total Protein,Serum 6.6 g/dl (6.3-8.2)
== END 2025-01-22 23:59 | disposition home or self-care (01) ==
LOC: INF 09:12
PROVIDERS: PCP Family Medicine; Visit Provider Internal Medicine Medical Oncology
DX: Z85.820 Personal history of malignant melanoma of skin (principal)
CPT/HCPCS: 36415; 80053; 85025

== ENCOUNTER 2025-02-12 08:58 | Outpatient (CLI) | payer MEDICARE, OTHER, SELFPAY ==
--- NOTE | 2025-02-12 09:30 | MR_ITS ---
FINAL REPORT TECHNIQUE: Multiplanar MR, without and with gadolinium enhancement CLINICAL HISTORY: Lung cancer, brain metastasis, follow-up COMPARISON: 11/23/2024 FINDINGS: Multiplanar MR imaging of the brain was performed without and with contrast. There is extensive abnormal signal throughout both hemispheres compatible with chronic ischemic change or gliosis. No new abnormal signal changes are seen. There is no edema or hemorrhage. 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 Postcontrast images demonstrate no enhancing mass. There is linear enhancement in the right frontal lobe compatible with deep venous anomaly. IMPRESSION: No evidence of metastatic brain disease. Reviewed, Interpreted and Dictated by Jeff Chaparro MD Transcribed by Liliana Smyth Authenticated and . [facility]
[2025-02-12 09:49] LABS: Basophils % 0.5 % (0.1-2.0); Eosinophils % 0.5 % (0.1-12.0); Hematocrit 37.2 % (42.0-52.0); Hemoglobin 12.1 g/dL (14.1-18.0); Lymphocytes # 0.7 K/mm3 (0.7-4.5); Lymphocytes % 12.5 % (10-50); Mean Corpuscular HGB Conc 32.5 g/dL (31.8-35.4); Mean Corpuscular Hemoglobin 30.2 pg (27.0-31.2); Mean Corpuscular Volume 92.8 fl (80-94); Mean Platelet Volume 9.9 fl (7.4-10.4); Monocytes # 0.7 K/mm3 (0.1-1.0); Monocytes % 12.5 % (1.7-9.3); Neutrophils # 4.3 K/mm3 (1.8-7.8); Neutrophils % 73.1 % (37.0-80.0); Platelet Count 135 K/mm3 (142-424); Red Blood Count 4.01 M/mm3 (4.60-6.20); Red Cell Distribution Width 13.6 % (11.5-17.5); White Blood Count 5.9 K/mm3 (4.8-10.8)
[2025-02-12] MEDS: SODIUM CHLORIDE 0.9% 10ML SYR (RAD ONLY) 10 ML IV (09:57)
[2025-02-12] MEDS: GADOTERIDOL INJ 20ML SYRINGE 17 ML IV (09:57)
[2025-02-12 10:12] LABS: Alanine Aminotransferase 23 U/L (12-78); Albumin Level 3.6 g/dl (3.5-5.0); Albumin/Globulin Ratio 1.3 (1.1-1.8); Alkaline Phosphatase 98 U/L (38-126); Anion Gap 9.4 mEq/L (5-15); Aspartate Amino Transferase 33 U/L (17-59); Bilirubin,Total 0.6 mg/dl (0.2-1.3); Blood Urea Nitrogen 18 mg/dl (9-20); Calcium 9.5 mg/dl (8.4-10.2); Carbon Dioxide 30 mmol/L (22.0-30.0); Chloride 103 mmol/L (98-107); Estimated Glomerular Filt Rate 64 ml/min (>60); GFR (African American) 78 ML/MIN (>60); Globulin 2.7 g/dL (1.3-3.2); Glucose 92 mg/dl (74-100); Potassium 4.4 mmoL/L (3.5-5.1); Sodium 138 mmol/L (136-145); Total Protein,Serum 6.3 g/dl (6.3-8.2)
== END 2025-02-12 23:59 | disposition home or self-care (01) ==
LOC: RAD 08:59
PROVIDERS: PCP Family Medicine; Visit Provider Internal Medicine Medical Oncology
DX: C34.31 Malignant neoplasm of lower lobe, right bronchus or lung (principal); C79.31 Secondary malignant neoplasm of brain
CPT/HCPCS: 36415; 70553; 80053; 85025; A9576

== ENCOUNTER 2025-03-17 10:39 | Outpatient (CLI) | payer MEDICARE, OTHER, SELFPAY ==
[2025-03-17 10:59] LABS: Basophils % 0.7 % (0.1-2.0); Eosinophils % 0.9 % (0.1-12.0); Hematocrit 35.9 % (42.0-52.0); Hemoglobin 11.8 g/dL (14.1-18.0); Immature Granulocytes # 0.05 10^3uL; Immature Granulocytes % 1.1 %; Lymphocytes # 0.7 K/mm3 (0.7-4.5); Mean Corpuscular HGB Conc 32.9 g/dL (31.8-35.4); Mean Corpuscular Hemoglobin 29.9 pg (27.0-31.2); Mean Corpuscular Volume 91.1 fl (80-94); Mean Platelet Volume 9.2 fl (7.4-10.4); Neutrophils # 2.8 K/mm3 (1.8-7.8); Neutrophils % 61.3 % (37.0-80.0); Nucleated Red Blood Cells # 0 10^3/uL; Nucleated Red Blood Cells % 0 %; Platelet Count 128 K/mm3 (142-424); Red Blood Count 3.94 M/mm3 (4.60-6.20); Red Cell Distribution Width 13.4 % (11.5-17.5); Red Cell Distribution Width-SD 45.2 fL; White Blood Count 4.5 K/mm3 (4.8-10.8)
[2025-03-17 11:15] LABS: Alanine Aminotransferase 21 U/L (12-78); Albumin/Globulin Ratio 1.4 (1.1-1.8); Alkaline Phosphatase 108 U/L (38-126); Anion Gap 5.4 mEq/L (5-15); Aspartate Amino Transferase 35 U/L (17-59); Bilirubin,Total 0.6 mg/dl (0.2-1.3); Blood Urea Nitrogen 19 mg/dl (9-20); Calcium 9.4 mg/dl (8.4-10.2); Carbon Dioxide 29 mmol/L (22.0-30.0); Chloride 105 mmol/L (98-107); Estimated Glomerular Filt Rate 64 ml/min (>60); GFR (African American) 78 ML/MIN (>60); Globulin 2.8 g/dL (1.3-3.2); Glucose 103 mg/dl (74-100); Potassium 4.4 mmoL/L (3.5-5.1); Sodium 135 mmol/L (136-145); Total Protein,Serum 6.8 g/dl (6.3-8.2)
== END 2025-03-17 10:49 | disposition home or self-care (01) ==
LOC: INF 10:41
PROVIDERS: PCP Family Medicine; Visit Provider Internal Medicine Medical Oncology
DX: C78.00 Secondary malignant neoplasm of unspecified lung (principal)
CPT/HCPCS: 36415; 80053; 85025

== ENCOUNTER 2025-03-29 10:15 | Outpatient (CLI) | payer MEDICARE, OTHER, SELFPAY ==
--- NOTE | 2025-03-29 10:30 | CT_ITS ---
FINAL REPORT TECHNIQUE: After the administration of intravenous contrast, axial images were obtained through the abdomen and pelvis by computed tomography. This study was performed with technique to keep radiation doses as low as reasonably achievable, (ALARA). Individualized dose reduction techniques using automated exposure control or adjustment of the MA and/or KV according to the patient's size were employed. CLINICAL HISTORY: melanoma COMPARISON: 01/11/2025 FINDINGS: Abdomen: The liver is normal in size and attenuation. The gallbladder is distended. The spleen is at the upper limits of normal in size measuring 13 cm. The adrenals are normal. The pancreas is unremarkable. There is a low-attenuation focus in the medial cortex of the left kidney measuring 10 mm which is stable from prior exam consistent with benign cyst. The kidneys enhance appropriately. The aorta is normal in caliber. There is no free fluid or adenopathy. Pelvis: The appendix is normal. The urinary bladder is unremarkable. There is no free fluid or adenopathy. Advanced disc space narrowing seen at L5-S1 with bilateral neuroforaminal narrowing. IMPRESSION: No acute intra-abdominal process. Reviewed, Interpreted and Dictated by Mark Hyman MD Transcribed by Edilma Lizarraga Authenticated and [facility]
--- NOTE | 2025-03-29 10:30 | CT_ITS ---
FINAL REPORT TECHNIQUE: Routine axial images were obtained from the lung apices to below the diaphragm following IV contrast administration. Individualized dose reduction techniques using automated exposure control or adjustment of the mA and/or kV according to the patient size were employed. CLINICAL HISTORY: melanoma COMPARISON: 01/11/2025 FINDINGS: There is an enlarged right paratracheal lymph node measuring 2.0 cm seen on image 33 of series 5 which is slightly larger than on prior exam. Previously seen nodule in the superior segment of the right lower lobe has increased in size, now measuring 10 mm in diameter on image 40 of series 5. The lungs are otherwise clear. There is no pleural or pericardial effusion. There is no pneumothorax. Osseous structures are unremarkable. IMPRESSION: Increase in size of nodule in the superior segment of the right lower lobe which could represent metastasis or primary bronchogenic carcinoma. Increasing adenopathy which could represent metastatic adenopathy. Reviewed, Interpreted and Dictated by Mark Hyman MD Transcribed by Edilma Lizarraga Authenticated and [facility]
[2025-03-29] MEDS: IOPAMIDOL-370 (76%);100ML BOTTLE 75 ML IV (10:35)
[2025-03-29] MEDS: SODIUM CHLORIDE 0.9% 10ML SYR (RAD ONLY) 10 ML IV (10:35)
== END 2025-03-29 23:59 | disposition home or self-care (01) ==
LOC: RAD 10:16
PROVIDERS: PCP Family Medicine; Visit Provider Internal Medicine Medical Oncology
DX: C78.00 Secondary malignant neoplasm of unspecified lung (principal); R91.8 Other nonspecific abnormal finding of lung field; R59.9 Enlarged lymph nodes, unspecified
CPT/HCPCS: 71260; 74177; Q9967

== ENCOUNTER 2025-04-14 10:25 | Outpatient (CLI) | payer MEDICARE, OTHER, SELFPAY ==
--- NOTE | 2025-04-14 10:31 | PC.NURSE ---
1031-collected labs via venipuncture stick with butterfly needle in left ac.
[2025-04-14 10:45] LABS: Basophils % 0.5 % (0.1-2.0); Eosinophils % 0.7 % (0.1-12.0); Hematocrit 36.4 % (42.0-52.0); Immature Granulocytes # 0.06 10^3uL; Lymphocytes # 0.7 K/mm3 (0.7-4.5); Lymphocytes % 11.8 % (10-50); Mean Corpuscular Hemoglobin 30.2 pg (27.0-31.2); Mean Corpuscular Volume 91.7 fl (80-94); Mean Platelet Volume 9.5 fl (7.4-10.4); Monocytes # 0.9 K/mm3 (0.1-1.0); Monocytes % 15.6 % (1.7-9.3); Neutrophils # 4.3 K/mm3 (1.8-7.8); Neutrophils % 70.4 % (37.0-80.0); Nucleated Red Blood Cells # 0 10^3/uL; Nucleated Red Blood Cells % 0 %; Platelet Count 130 K/mm3 (142-424); Red Blood Count 3.97 M/mm3 (4.60-6.20); Red Cell Distribution Width 13.8 % (11.5-17.5); Red Cell Distribution Width-SD 46.5 fL
[2025-04-14 10:51] LABS: Albumin Level 3.8 g/dl (3.5-5.0); Chloride 106 mmol/L (98-107)
[2025-04-14 10:52] LABS: Potassium 4.4 mmoL/L (3.5-5.1); Sodium 139 mmol/L (136-145)
[2025-04-14 10:54] LABS: Alanine Aminotransferase 21 U/L (12-78); Anion Gap 7.4 mEq/L (5-15); Aspartate Amino Transferase 32 U/L (17-59); Bilirubin,Total 0.5 mg/dl (0.2-1.3); Blood Urea Nitrogen 20 mg/dl (9-20); Carbon Dioxide 30 mmol/L (22.0-30.0); Estimated Glomerular Filt Rate 53 ml/min (>60); GFR (African American) 64 ML/MIN (>60)
[2025-04-14 10:55] LABS: Albumin/Globulin Ratio 1.4 (1.1-1.8); Alkaline Phosphatase 93 U/L (38-126); Calcium 9.4 mg/dl (8.4-10.2); Globulin 2.8 g/dL (1.3-3.2); Glucose 102 mg/dl (74-100); Total Protein,Serum 6.6 g/dl (6.3-8.2)
== END 2025-04-14 10:35 | disposition home or self-care (01) ==
LOC: INF 10:28
PROVIDERS: PCP Family Medicine; Visit Provider Internal Medicine Medical Oncology
DX: C78.00 Secondary malignant neoplasm of unspecified lung (principal)
CPT/HCPCS: 36415; 80053; 85025

== ENCOUNTER 2025-05-04 09:04 | Outpatient (CLI) | payer MEDICARE, OTHER, SELFPAY ==
--- OUTSIDE RECORDS SUMMARY | 2025-05-04 09:06 | XMS_ITS | Clinical Summary ---
Author Organization Healthcare Address [address] [place] [address] Care Team Providers Care Student Activities Director Name Role Phone Unavailable Primary Care Provider Unavailabl e Social History Tobacco Use Types Packs/Day Years Used Date Smoking Tobacco: Never Assessed Sex and Gender Information Value Date Recorded Sex Assigned at Not on file Legal Sex Male 8:35 PM EDT Gender Identity Not on file Sexual Orientation Not on file Last Filed Vital Signs Vital Sign Reading Time Taken Comments Blood Pressure - - Pulse - - Temperature - - Respiratory Rate - - Oxygen Saturation - - Inhaled Oxygen Concentration - - Weight 90.2 kg (198 lb 13.7 oz) 023 10:36 AM EST Height 185.4 cm (6' 1 ) 11/07/2023 10:3 6 AM EST Body Mass Index 26.24 11/07/2023 10:36 AM EST Plan of Treatment Health Maintenance Due Date Last Done Comments [facility]-Depression Screening 1940 [facility]-Medicare Annual Wellness (AWV) 1940 [facility]-Infant/Child/Adol SDOH Screenings 1942 [facility]-Obesity Intervention 1948 [facility]- SDOH Screenings 1960 [facility]-Adult SDOH Screenings 1960 [facility]-RSV Vaccine: 60+ Years or (1 - 1-dose 75+ series) 2017 [facility]-Zoster Vaccines (2 of 3) 09/16/2017 07/22/2017 [id number] Vaccine ( season) 2024 09/05/2023, 06/18/2023, 09/25/2022, Additional history exists [facility]-Influenza Vaccine (Season Ended) 2025 07/26/2023, 07/31/2022, 08/04/2021, Additional history exists [facility]-DTaP,Tdap,and Td Vaccines (4 - Td or Tdap) 05/01/2027 05/01/2017, 06/01/2016, 06/01/2016, Additional history exists [facility]-Pneumococcal Vaccine: 50+ Years Completed 07/26/2023, 06/01/2016, 08/14/2007 HPV Vaccines Aged Out No longer eligi ble based on patient's age to complete this topic [facility]-HIB Vaccines Aged Out No longer e ligible based on patient's age to complete this topic [facility]-Hepatitis A Vaccines Aged Out No longer eligible based on patient's age to complete this topic [facility]-IPV Vaccines Aged Out No longer e ligible based on patient's age to complete this topic [facility]-Rotavirus Vaccines Aged Out No lo nger eligible based on patient's age to complete this topic Insurance MEDICARE [facility] [place] [id number]
--- OUTSIDE RECORDS SUMMARY | 2025-05-04 09:06 | XMS_ITS | Clinical Summary ---
Author Organization [employer] Address [address] [place] [address] Care Team Providers Care Legal Researcher Name Role Phone Unavailable Primary Care Provider Unavailabl e Social History Tobacco Use Types Packs/Day Years Used Date Smoking Tobacco: Never Assessed Interpersonal Safety Answer Date Record ed Family or friends hurt you Not on file 11/22 Family or friends insult you Not on file 10/2024 Family or friends threaten you Not on file 0 11/22/2023 Family or friends scream or curse at you Not on file 11/22/2023 Housing Stability Answer Date Recorded Living situation today Not on file Living situation problems Not on file 2023 Food Insecurity Answer Date Recorded Food run out past 12 months Not on file 11/11 Food did not last past 12 months Not on file 11/22/2023 Employment Answer Date Recorded Help finding and keeping a job Not on file 0 11/22/2023 Family and Community Support Answer Esau e Recorded Help with Day to Day Activities Not on file 11/22/2023 Feeling Lonely or Isolated Not on file 11/22 Educational Attainment Answer Date Abdulkadir rded Speak language other than Somali at home Not on file 11/22/2023 Want help with school or training Not on file 11/22/2023 Depression Answer Date Recorded PHQ-2 Risk Not on file 11/22/2023 Disabilities Answer Date Recorded Difficulty concentrating Not on file 024 Difficulty doing errands alone Not on file 0 11/22/2023 Substance Use Answer Date Recorded Used prescription meds for non-medical reasons N ot on file 11/22/2023 Used illegal drugs past 12 months Not on file 11/22/2023 Sex and Gender Information Value Date Recorded Sex Assigned at Not on file Legal Sex Male 6:10 PM CDT Gender Identity Not on file Sexual Orientation Not on file Plan of Treatment Health Maintenance Due Date Last Done Comments Depression Screening (12+) 1954 Tobacco Cessation Counseling and Screening (12+) 1952 Pneumococcal 50+ years (2 of 2 - PPSV23) 07/27/2016 06/01/2016 Respiratory Syncytial Virus (RSV) Adult or (1 - 1-dose 75+ series) 2017 Shingles Vaccine (Zoster) (2 of 2) 09/16/20172016 COVID-19 VACCINE (2023-2 5 season) 2024 09/25/2022, 02/13/2022, 07/27/2021, Additional history exists Falls Risk Screening 11/11/2024 Influenza Vaccine (Season Ended) 2025 07/26/2023, 07/31/2022, 08/04/2021, Additional history exists DTAP/TDAP/TD VACCINES (4 - T d or Tdap) 05/01/2027 05/01/2017, 06/01/2016, 06/01/2016
--- OUTSIDE RECORDS SUMMARY | 2025-05-04 09:06 | XMS_ITS | Referral Summary ---
Author Organization [employer] Address [address] [place] [address] Care Team Providers Care Equipment Operat0R Name Role Phone Unavailable Primary Care Provider [...] Date Abdulkadir rded Speak language other than Paraguayan at home Not on file 11/22/2023 Want [...] Orientation Not on file Plan of Treatment Not on file
--- OUTSIDE RECORDS SUMMARY | 2025-05-04 09:06 | XMS_ITS | Encounter Summary ---
Author Organization Healthcare Address [address] [place] [address] Care Team Providers Care Habitat Management Coordinator Name Role Phone None, None Primary Care Provider [phone] Encounter Details Date Type Department Care Team (Late st Contact Info) Description 10/22/2023 Community Orders Community [facility] [address] [place] [address] Tatianna Champion MD [facility] [place] [address] Malignant melanoma, unspecified site (CMS/HCC) (Primary Dx) Social History Tobacco Use Types Packs/Day Years Used Date Smoking Tobacco: Never Assessed Sex and Gender Information Value Date Recorded Sex Assigned at Not on file Legal Sex Male 8:35 PM EDT Gender Identity Not on file Sexual Orientation Not on file documented as of this encounter Plan of Treatment Not on file documented as of this encounter Visit Diagnoses Diagnosis Malignant melanoma, unspecified site (CMS/HCC)- Primary documented in this encounter Care Teams Habitat Management Coordinator Relationship Specialty Start Date End Date None, None [address] [place], [place] [id number] PCP - General NONE FOUND 02/09/23 06/04/24 documented as of this encounter
--- OUTSIDE RECORDS SUMMARY | 2025-05-04 09:06 | XMS_ITS | Encounter Summary ---
Author Organization Healthcare Address [address] [place] [address] Care Team Providers Care Buncher Operator Name Role Phone None, None Primary Care Provider [phone] Reason for Referral * Imaging (Urgent) - Closed Specialty Diagnoses / Procedures Referred By Contac t Referred To Contact Radiology Diagnoses Malignant melanoma of scalp (CMS/HCC) Procedures MR Head w and wo IV Contrast Tatianna Champion MD [address] [place] [address] Phone: tel: fax: Referral ID Status Reason Start Date Expiration Date Visits Re quested Visits Authorized [id number] Closed 10/29/2023 04/29/2025 1 1 Encounter Details Date Type Department Care Team (Late st Contact Info) Description 10/29/2023 [facility] [address] [place] [address] Tatianna Champion MD [address] [place] [address] Malignant melanoma of scalp (CMS/HCC) (Primary Dx); Malignant neoplasm of upper lobe of right lung (CMS/HCC) Social History Tobacco Use Types Packs/Day Years Used Date Smoking Tobacco: Never Assessed Sex and Gender Information Value Date Recorded Sex Assigned at Not on file Legal Sex Male 8:35 PM EDT Gender Identity Not on file Sexual Orientation Not on file documented as of this encounter Plan of Treatment Not on file documented as of this encounter Results * MR Head w and wo IV Contrast (11/07/2023 11:22 AM EST) Anatomical Region Laterality Modality Head Magnetic Resonan ce Impressions 11/07/2023 4:31 PM EST 1. Focal enhancing lesion in the posterior aspect of the left insula, in the setting of patient known history of melanoma, concerning for a metastatic focus. Comparison with prior examinations is recommended. 2. Mild to moderate white matter disease, likely representing chronic small vessel ischemia. Developmental venous anomalies as above. CRITICAL RESULT: No. COMMUNICATION: Per this written report. Drafted by Td Steward MD on 11/07/2023 1:40 PM Final report signed by Td Steward MD on 11/07/2023 4:31 PM Narrative 11/07/2023 4:31 PM EST CLINICAL INDICATION: Metastatic disease evaluation TECHNIQUE: Multiplanar multiecho sequences were performed through the brain utilizing T1 and T2 weighting, as well as either axial susceptibility weighted or gradient echo sequences, and axial diffusion weighted images. Imaging was performed with and without contrast administration: 9 mL of Gadavist. COMPARISON: None. FINDINGS: Diagnostic Quality: Adequate. There are no areas of restricted diffusion to suggest acute ischemic changes. Small area of subcortical susceptibility artifact is noted in the right superior frontal gyrus with associated volume loss. No other areas of susceptibility artifact are seen. There is a 7 mm heterogeneously enhancing focal lesion in the posterior portions of the left insula, better seen on series 17 image 78. No other definite focal enhancing lesions are seen. Developmental venous anomaly is noted in the right superior frontal gyrus and a very small additional developmental venous anomaly is noted in the right parietal lobe. There are scattered foci of hyperintense T2 signal in the subcortical and periventricular white matter bilaterally. Well-defined hyperintense T2 signal is seen in the left cerebellum with no definite abnormal enhancement, could represent a remote insult. Vascular Flow Voids: Normal. Paranasal Sinuses and Mastoid Air Cells: Grossly clear. Orbits: No definite masses within the limitations of the study. Extracranial Findings: None. Craniocervical Junction and Skull Base: No tonsillar ectopia or mass is present. Procedure Note Td Mead MD - 11/07/2023 CLINICAL INDICATION: Metastatic disease evaluation TECHNIQUE: Multiplanar multiecho sequences were performed through the brain utilizingT1 and T2 weighting, as well as either axial susceptibility weighted orgradient echo sequences, and axial diffusion weighted images. Imaging wasperformed with and without contrast administration: 9 mL of Gadavist. COMPARISON: None. FINDINGS: Diagnostic Quality: Adequate. There are no areas of restricted diffusion to suggest acute ischemicchanges. Small area of subcortical susceptibility artifact is noted in theright superior frontal gyrus with associated volume loss. No other areasof susceptibility artifact are seen. There is a 7 mm heterogeneously enhancing focal lesion in the posteriorportions of the left insula, better seen on series 17 image 78. No otherdefinite focal enhancing lesions are seen. Developmental venous anomaly isnoted in the right superior frontal gyrus and a very small additionaldevelopmental venous anomaly is noted in the right parietal lobe. There are scattered foci of hyperintense T2 signal in the subcortical andperiventricular white matter bilaterally. Well-defined hyperintense P8spevvh is seen in the left cerebellum with no definite abnormalenhancement, could represent a remote insult. Vascular Flow Voids: Normal. Paranasal Sinuses and Mastoid Air Cells: Grossly clear. Orbits: No definite masses within the limitations of the study. Extracranial Findings: None. Craniocervical Junction and Skull Base: No tonsillar ectopia or mass ispresent. IMPRESSION: 1. Focal enhancing lesion in the posterior aspect of the left insula, inthe setting of patient known history of melanoma, concerning for ametastatic focus. Comparison with prior examinations is recommended. 2. Mild to moderate white matter disease, likely representing chronicsmall vessel ischemia. Developmental venous anomalies as above. CRITICAL RESULT: No. COMMUNICATION: Per this written report. Drafted by Td Steward MD on 11/07/2023 1:40 PM Final report signed by Td Steward MD on 11/07/2023 4:31 PM Tatianna Champion MD IMG MRI PROCEDURES Final Result documented in this encounter Visit Diagnoses Diagnosis Malignant melanoma of scalp (CMS/HCC)- Primary Malignant neoplasm of upper lobe of right lung (CMS/HCC) Malignant melanoma of scalp (CMS/HCC) documented in this encounter Care Teams Buncher Operator Relationship Specialty Start Date End Date None, None [address] [place] [address] PCP - General NONE FOUND 02/09/23 06/04/24 documented as of this encounter
--- NOTE | 2025-05-04 09:30 | MR_ITS ---
FINAL REPORT TECHNIQUE: Multiplanar MR, without and with gadolinium enhancement CLINICAL HISTORY: melanoma. LUNG CANCER COMPARISON: 02/12/2025 FINDINGS: Diffusion sequences show no signal abnormality to indicate acute infarct. No mass, hemorrhage or edema is seen. Mild global atrophy is noted. There are numerous scattered white matter foci of increased T2 signal noted bilaterally, consistent with moderate chronic microvascular disease. 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 Major vascular flow voids are intact. Following contrast administration, no mass or abnormal enhancement is seen. IMPRESSION: 1. No metastases are identified. 2. Stable chronic microvascular changes. Reviewed, Interpreted and Dictated by Jeff Chaparro MD Transcribed by Jacklyn Aly Authenticated and [facility]
[2025-05-04] MEDS: GADOTERIDOL INJ 20ML SYRINGE 17 ML IV (10:00)
[2025-05-04] MEDS: SODIUM CHLORIDE 0.9% 10ML SYR (RAD ONLY) 10 ML IV (10:00)
== END 2025-05-04 23:59 | disposition home or self-care (01) ==
LOC: RAD 09:05
PROVIDERS: PCP Family Medicine; Visit Provider Internal Medicine Medical Oncology
DX: C43.9 Malignant melanoma of skin, unspecified (principal); C78.00 Secondary malignant neoplasm of unspecified lung; R90.89 Other abnormal findings on diagnostic imaging of central nervous system
CPT/HCPCS: 70553; A9576

== ENCOUNTER 2025-05-18 09:07 | Outpatient (CLI) | payer MEDICARE, OTHER, SELFPAY ==
--- OUTSIDE RECORDS SUMMARY | 2025-05-18 09:10 | XMS_ITS | Referral Summary ---
Author Organization [employer] ([place], [place], [place], [place]) Address [address] [place] [address] Care Team Providers Care Hat Stock Laminating Machine Operator Name Role Phone Unavailable Primary Care Provider Unavailabl e Social History Tobacco Use Types Packs/Day Years Used Date Smoking Tobacco: Never Assessed Food Insecurity Answer Date Recorded Food run [...] Date Abdulkadir rded Speak language other than Eritrean at home Not on file 11/22/2023 Want help with school or training Not on file 11/22/2023 Substance Use Answer Date Recorded Used [...]
--- OUTSIDE RECORDS SUMMARY | 2025-05-18 09:10 | XMS_ITS | Encounter Summary ---
Author Organization Healthcare Address [address] [place] [address] Care Team Providers Care Egg Trayer Name Role Phone None, None Primary Care Provider [phone] Reason for Referral * Imaging (Urgent) - Closed Specialty Diagnoses / Procedures Referred By Contac t Referred To Contact Radiology Diagnoses Malignant melanoma of scalp (CMS/HCC) Procedures MR Head w and wo IV Contrast Tatianna Champion MD [address] [place] [address] Phone: tel: fax: Referral ID Status Reason Start Date Expiration Date Visits Re quested Visits Authorized [id number] Closed 10/29/2023 04/29/2025 1 1 Encounter Details Date Type Department Care Team (Late st Contact Info) Description 10/29/2023 [facility] [address] [place] [address] Tatianna Champion MD [address] [place] [address] Malignant melanoma of scalp (CMS/HCC) [...] subcortical andperiventricular white matter bilaterally. Well-defined hyperintense [id number] is seen in the left cerebellum with [...] (CMS/HCC) documented in this encounter Care Teams Egg Trayer Relationship Specialty Start Date End Date None, None [address] [place] [address] PCP - General NONE FOUND 02/09/23 06/04/24 documented as of this encounter
--- OUTSIDE RECORDS SUMMARY | 2025-05-18 09:10 | XMS_ITS | Clinical Summary ---
Author Organization Healthcare Address [address] [place] [address] Care Team Providers Care Upsetter Helper Name Role Phone Unavailable Primary Care Provider [...] UKY-Zoster Vaccines (2 of 3) 09/16/2017 07/22/2017 [id number] Vaccine (2023- season) 2024 09/05/2023, 06/18/2023, 09/25/2022, Additional history exists UKY-Influenza Vaccine (#1) 07/12/202507/26, 07/31/2022, 08/04/2021, Additional history exists UKY-DTaP,Tdap,and Td [...] age to complete this topic Insurance MEDICARE [facility] [place] [id number]
--- OUTSIDE RECORDS SUMMARY | 2025-05-18 09:10 | XMS_ITS | Clinical Summary ---
Author Organization [employer] ([place], [place], [place], [place]) Address [address] [place] [address] Care Team Providers Care Mica Machine Operator Name Role Phone Unavailable Primary [...] Date Abdulkadir rded Speak language other than Kuwaiti at home Not on file 11/22/2023 Want [...] exists Falls Risk Screening 11/11/2024 Influenza Vaccine (#1) 2025 3, 07/31/2022, 08/04/2021, Additional history exists DTAP/TDAP/TD VACCINES (4 - T d or Tdap) 05/01/2027 05/01/2017, 06/01/2016, 06/01/2016
--- OUTSIDE RECORDS SUMMARY | 2025-05-18 09:10 | XMS_ITS | Encounter Summary ---
Author Organization Healthcare Address [address] [place] [address] Care Team Providers Care Casino Supervisor Name Role Phone None, None Primary Care Provider [phone] Encounter Details Date Type Department Care Team (Late st Contact Info) Description 10/22/2023 [facility] [address] [place] [address] Tatianna Champion MD [facility] [place] [address] Malignant melanoma, unspecified site (CMS/HCC) [...] Primary documented in this encounter Care Teams Casino Supervisor Relationship Specialty Start Date End Date None, None [address] [place], [place] [id number] PCP - General NONE FOUND 02/09/23 06/04/24 documented as of this encounter
[2025-05-18 09:27] LABS: Hematocrit 35.6 % (42.0-52.0); Hemoglobin 11.8 g/dL (14.1-18.0); Immature Granulocytes % 1.0 %; Mean Corpuscular HGB Conc 33.1 g/dL (31.8-35.4); Mean Corpuscular Hemoglobin 30.3 pg (27.0-31.2); Mean Corpuscular Volume 91.5 fl (80-94); Nucleated Red Blood Cells % 0 %; Platelet Count 148 K/mm3 (142-424); Red Blood Count 3.89 M/mm3 (4.60-6.20); Red Cell Distribution Width-SD 46.1 fL; White Blood Count 6.9 K/mm3 (4.8-10.8)
[2025-05-18 09:43] LABS: Alanine Aminotransferase 17 U/L (12-78); Albumin Level 3.9 g/dl (3.5-5.0); Albumin/Globulin Ratio 1.4 (1.1-1.8); Alkaline Phosphatase 95 U/L (38-126); Anion Gap 12.5 mEq/L (5-15); Aspartate Amino Transferase 27 U/L (17-59); Bilirubin,Total 0.6 mg/dl (0.2-1.3); Blood Urea Nitrogen 19 mg/dl (9-20); Calcium 9.8 mg/dl (8.4-10.2); Carbon Dioxide 31 mmol/L (22.0-30.0); Chloride 98 mmol/L (98-107); Creatinine,Serum 1.10 mg/dl (0.66-1.25); Estimated Glomerular Filt Rate 64 ml/min (>60); GFR (African American) 77 ML/MIN (>60); Globulin 2.8 g/dL (1.3-3.2); Glucose 98 mg/dl (74-100); Potassium 4.5 mmoL/L (3.5-5.1); Sodium 137 mmol/L (136-145); Total Protein,Serum 6.7 g/dl (6.3-8.2)
--- NOTE | 2025-05-18 14:01 | PC.NURSE ---
0910 Patient here for labs prior to appointment with Dr. Mancuso this am. Labs obtained as ordered via venipuncture to L AC x1 stick with butterfly needle. Patient tolerated well.
== END 2025-05-18 10:30 | disposition home or self-care (01) ==
LOC: INF 09:08
PROVIDERS: PCP Family Medicine; Visit Provider Internal Medicine Medical Oncology
DX: C78.00 Secondary malignant neoplasm of unspecified lung (principal)
CPT/HCPCS: 36415; 80053; 85025

== ENCOUNTER 2025-06-17 07:40 | Outpatient (CLI) | payer MEDICARE, OTHER, SELFPAY ==
--- OUTSIDE RECORDS SUMMARY | 2025-06-17 07:43 | XMS_ITS | Encounter Summary ---
Author Organization Healthcare Address [address] [place] [address] Care Team Providers Care School Bus Dispatcher Name Role Phone None, None Primary Care Provider [phone] Reason for Referral * Imaging (Urgent) - Closed Specialty Diagnoses / Procedures Referred By Contac t Referred To Contact Radiology Diagnoses Malignant melanoma of scalp (CMS/HCC) Procedures MR Head w and wo IV Contrast Tatianna Champion MD [address] [place] [address] Phone: tel: fax: Referral ID Status Reason Start Date Expiration Date Visits Re quested Visits Authorized [id number] Closed 10/29/2023 04/29/2025 1 1 Encounter Details Date Type Department Care Team (Late st Contact Info) Description 10/29/2023 [facility] [address] [place] [address] Tatianna Champion MD [address] [place] [address] Malignant melanoma of scalp (CMS/HCC) [...] subcortical andperiventricular white matter bilaterally. Well-defined hyperintense [id number] is seen in the left cerebellum with [...] (CMS/HCC) documented in this encounter Care Teams School Bus Dispatcher Relationship Specialty Start Date End Date None, None [address] [place] [address] PCP - General NONE FOUND 02/09/23 06/04/24 documented as of this encounter
--- OUTSIDE RECORDS SUMMARY | 2025-06-17 07:43 | XMS_ITS ---
Author Organization Unknown Immunizations Date Vaccine DateAdministered TimeAdministered VaccineCode Dose Strength Unit Slabber Light DueDate CptCode CvxCode ManufacturerCode LocationCode AdministeredBy 09/03 00:00 :00 Fluzone High Dose (65yr and older) 09/03/2024 14:33:00 14:33:00 200190 0.5 mL Sanofi Pasteur 05/10/20 00:00:00 [id number] 197 Sanofi Pasteur Annita Thomas
--- OUTSIDE RECORDS SUMMARY | 2025-06-17 07:43 | XMS_ITS | Clinical Summary ---
Author Organization [employer] ([place], [place], [place], [place]) Address [address] [place] [address] Care Team Providers Care Hoeing Row Boss Name Role Phone Unavailable Primary Care Provider [...] Date Abdulkadir rded Speak language other than American at home Not on file 11/22/2023 Want [...] Tobacco Cessation Counseling and Screening (12+) 1952 Respiratory Syncytial Virus (RSV) Adult or (1 - 1-dose 75+ series) 2017 Pneumococcal 50+ years (2 of 2 - PPSV23) 06/01/2017 06/01/2016 Shingles Vaccine (Zoster) (2 of 2) 09/16/20172016 COVID-19 VACCINE (2023-2 5 season) 2024 09/25/2022, 02/13/2022, 07/27/2021, Additional history exists Falls Risk Screening 11/11/2024 Influenza Vaccine (#1) 2025 3, 07/31/2022, 08/04/2021, Additional history exists DTAP/TDAP/TD VACCINES (4 - T d or Tdap) 05/01/2027 05/01/2017, 06/01/2016, 06/01/2016
--- OUTSIDE RECORDS SUMMARY | 2025-06-17 07:43 | XMS_ITS | Clinical Summary ---
Author Organization Healthcare Address [address] [place] [address] Care Team Providers Care Rfid Strategist Name Role Phone Unavailable Primary Care Provider [...] UKY-Zoster Vaccines (2 of 3) 09/16/2017 07/22/2017 [id number] Vaccine (2023- season) 2024 09/05/2023, 06/18/2023, 09/25/2022, [...] age to complete this topic Insurance MEDICARE [facility] [place] [id number]
--- OUTSIDE RECORDS SUMMARY | 2025-06-17 07:43 | XMS_ITS | Encounter Summary ---
Author Organization Healthcare Address [address] [place] [address] Care Team Providers Care Auto Self Service Station Attendant Name Role Phone None, None Primary Care Provider [phone] Encounter Details Date Type Department Care Team (Late st Contact Info) Description 10/22/2023 [facility] [address] [place] [address] Tatianna Champion MD [facility] [place] [address] Malignant melanoma, unspecified site (CMS/HCC) [...] Primary documented in this encounter Care Teams Auto Self Service Station Attendant Relationship Specialty Start Date End Date None, None [address] [place], [place] [id number] PCP - General NONE FOUND 02/09/23 06/04/24 documented as of this encounter
--- OUTSIDE RECORDS SUMMARY | 2025-06-17 07:43 | XMS_ITS | Referral Summary ---
Author Organization [employer] ([place], [place], [place], [place]) Address [address] [place] [address] Care Team Providers Care Glass Tube Bender Name Role Phone Unavailable Primary Care Provider [...] Date Abdulkadir rded Speak language other than Togolese at home Not on file 11/22/2023 Want [...]
--- OUTSIDE RECORDS SUMMARY | 2025-06-17 07:43 | XMS_ITS | Clinical Summary ---
Author Organization [facility] Address [address] [place] [address] Care Team Providers Care Software Validation Engineer Name Role Phone Unavailable Primary Care Provider Unavailabl e Social History Tobacco Use Types Packs/Day Years Used Date Smoking Tobacco: Never Assessed Abuse Screen Answer Date Recorded Unsafe at Home or Work/School Not on file Feels Threatened by Someone? Not on file 07/2023 Does Anyone Keep You from Co ntacting Others or Doint Things Outside the Home? Not on file 08/19/2023 Physical Sign of Abuse Present Not on file 1 Housing Stability Answer Date Recorded Current Living Arrangements Not on file 07/2023 Potentially Unsafe Housing Conditions Not on arthur e 08/19/2023 Family and Community Support Answer Esau e Recorded Help with Day-to-Day Activities Not on file 08/19/2023 Lonely or Isolated Not on file 08/19/2023 Employment Answer Date Recorded Do you want help finding or keeping work or a zhane b? Not on file 08/19/2023 Disabilities Answer Date Recorded Concentrating, Remembering, or Making Decisions Difficulty Not on file 08/19/2023 Doing Errands Independently Difficulty Not on fi le 08/19/2023 Education Answer Date Recorded Help with school or training? Not on file Preferred Language Not on file 08/19/2023 Sex and Gender Information Value Date Recorded Sex Assigned at Not on file Legal Sex Male 11:31 AM EDT Gender Identity Not on file Sexual Orientation Not on file Last Filed Vital Signs Vital Sign Reading Time Taken Comments Blood Pressure 122/76 01/25/2015 2:05 PM EDT Pulse - - Temperature - - Respiratory Rate - - Oxygen Saturation - - Inhaled Oxygen Concentration - - Weight 93.9 kg (207 lb 0.2 oz) 01/25/2015 2:05 P M EDT Height 182.9 cm (6') 01/25/2015 2:05 PM EDT Body Mass Index 28.08 01/25/2015 2:05 PM EDT Plan of Treatment Health Maintenance Due Date Last Done Comments ANNUAL PHYSICAL 1942 TDAP/TD VACCINES (1 - Tdap) 1961 Pneumococcal Vaccine 50+ (1 of 1 - PCV) 1992 ZOSTER VACCINE (1 of 2) 1992 RSV Vaccine - Adults (1 - 1-dose 75+ series) 7 COVID-19 Vaccine ( - 2023- season) 2024 INFLUENZA VACCINE 08/11/2025
--- NOTE | 2025-06-17 08:00 | CT_ITS ---
FINAL REPORT TECHNIQUE: Routine axial images were obtained from the lung apices to below the diaphragm following IV contrast administration. Individualized dose reduction techniques using automated exposure control or adjustment of the mA and/or kV according to the patient size were employed. CLINICAL HISTORY: melanoma COMPARISON: 03/29/2025 FINDINGS: There has been significant interval increase in size of the right paratracheal lymph node now measuring 3.7 cm in diameter on image 32 of series 4. No other mediastinal adenopathy identified. No pleural or pericardial effusion is seen. On lung windows, noncalcified nodule in the superior segment of the right lower lobe now measures 1.3 x 1.1 cm, increased in size and highly concerning for pulmonary metastasis. IMPRESSION: Significant increase in size of right paratracheal lymph node and nodule in the superior segment of the right lower lobe. Findings are consistent with increased pulmonary metastasis and increased metastatic adenopathy.. Reviewed, Interpreted and Dictated by Mark Hyman MD Transcribed by Monae Celis Authenticated and [facility]
--- NOTE | 2025-06-17 08:00 | CT_ITS ---
FINAL REPORT TECHNIQUE: After the administration of oral and intravenous contrast, axial images were obtained through the abdomen and pelvis by computed tomography. The study was performed with techniques to keep radiation dose as low as reasonably achievable, (ALARA). Individual dose reduction techniques using automated exposure control or adjustment of mA and/or kV according to the patient's size were employed. CLINICAL HISTORY: melanoma COMPARISON: 03/29/2025 FINDINGS: Abdomen: The liver parenchyma is homogeneous. The gallbladder is present. The spleen, pancreas, and adrenals appear unremarkable. There is a nodule in the medial left kidney which is slightly larger, now measuring 11 mm, on image 61 of series 5. This does not clearly represent a simple cyst. The aorta is normal in caliber. There is no free fluid or adenopathy. Pelvis: The appendix is normal. There is fluid within multiple loops of small bowel. The urinary bladder is decompressed. There is no free fluid or adenopathy. Moderate disc space narrowing at L5-S1 with endplate sclerosis and moderate narrowing of the neural foramen. IMPRESSION: Interval increase in size of complex focus medial left kidney now measuring 11 mm. This is indeterminate. Dedicated thin section pre and post infusion CT could better characterize if clinically desired. Reviewed, Interpreted and Dictated by Mark Hyman MD Transcribed by Monae Celis Authenticated and [facility]
[2025-06-17] MEDS: IOPAMIDOL-370 (76%);100ML BOTTLE 75 ML IV (08:04)
[2025-06-17] MEDS: SODIUM CHLORIDE 0.9% 10ML SYR (RAD ONLY) 10 ML IV (08:04)
== END 2025-06-17 23:59 | disposition home or self-care (01) ==
LOC: RAD 07:41
PROVIDERS: PCP Family Medicine; Visit Provider Internal Medicine Medical Oncology
DX: C78.00 Secondary malignant neoplasm of unspecified lung (principal); C43.9 Malignant melanoma of skin, unspecified; R93.89 Abnormal findings on diagnostic imaging of other specified body structures; R59.0 Localized enlarged lymph nodes; R93.422 Abnormal radiologic findings on diagnostic imaging of left kidney
CPT/HCPCS: 71260; 74177; Q9967

== ENCOUNTER 2025-06-30 10:32 | Outpatient (CLI) | payer MEDICARE, OTHER, SELFPAY ==
--- OUTSIDE RECORDS SUMMARY | 2025-06-30 10:49 | XMS_ITS | Encounter Summary ---
Author Organization Healthcare Address [address] [place] [address] Care Team Providers Care Medical Record Specialist Name Role Phone None, None Primary Care Provider [phone] Encounter Details Date Type Department Care Team (Late st Contact Info) Description 10/22/2023 [facility] [address] [place] [address] Tatianna Champion MD [facility] [place] [address] Malignant melanoma, unspecified site (CMS/HCC) [...] Primary documented in this encounter Care Teams Medical Record Specialist Relationship Specialty Start Date End Date None, None [address] [place], [place] [id number] PCP - General NONE FOUND 02/09/23 06/04/24 documented as of this encounter
--- OUTSIDE RECORDS SUMMARY | 2025-06-30 10:49 | XMS_ITS | Referral Summary ---
Author Organization [employer] ([place], [place], [place], [place]) Address [address] [place] [address] Care Team Providers Care Bait Tier Name Role Phone Unavailable Primary Care Provider [...] Date Abdulkadir rded Speak language other than Argentine at home Not on file 11/22/2023 Want [...]
--- OUTSIDE RECORDS SUMMARY | 2025-06-30 10:49 | XMS_ITS | Clinical Summary ---
Author Organization Healthcare Address [address] [place] [address] Care Team Providers Care Forest Supervisor Name Role Phone Unavailable Primary Care Provider [...] UKY-Zoster Vaccines (2 of 3) 09/16/2017 07/22/2017 [id number] Vaccine (2023- season) 2024 09/05/2023, 06/18/2023, 09/25/2022, [...] age to complete this topic Insurance MEDICARE [facility] [place] [id number]
--- OUTSIDE RECORDS SUMMARY | 2025-06-30 10:49 | XMS_ITS | Clinical Summary ---
Author Organization [employer] ([place], [place], [place], [place]) Address [address] [place] [address] Care Team Providers Care Crime Prevention Worker Name Role Phone Unavailable Primary Care Provider [...] Date Abdulkadir rded Speak language other than Moroccan at home Not on file 11/22/2023 Want [...]
--- OUTSIDE RECORDS SUMMARY | 2025-06-30 10:49 | XMS_ITS | Encounter Summary ---
Author Organization Healthcare Address [address] [place] [address] Care Team Providers Care Waiter/Waitress Third Class Name Role Phone None, None Primary Care Provider [phone] Reason for Referral * Imaging (Urgent) - Closed Specialty Diagnoses / Procedures Referred By Contac t Referred To Contact Radiology Diagnoses Malignant melanoma of scalp (CMS/HCC) Procedures MR Head w and wo IV Contrast Tatianna Champion MD [address] [place] [address] Phone: tel: fax: Referral ID Status Reason Start Date Expiration Date Visits Re quested Visits Authorized [id number] Closed 10/29/2023 04/29/2025 1 1 Encounter Details Date Type Department Care Team (Late st Contact Info) Description 10/29/2023 [facility] [address] [place] [address] Tatianna Champion MD [address] [place] [address] Malignant melanoma of scalp (CMS/HCC) [...] subcortical andperiventricular white matter bilaterally. Well-defined hyperintense [id number] is seen in the left cerebellum with [...] (CMS/HCC) documented in this encounter Care Teams Waiter/Waitress Third Class Relationship Specialty Start Date End Date None, None [address] [place] [address] PCP - General NONE FOUND 02/09/23 06/04/24 documented as of this encounter
--- OUTSIDE RECORDS SUMMARY | 2025-06-30 10:49 | XMS_ITS | Clinical Summary ---
Author Organization [facility]stem Address [address] [place] [address] Care Team Providers Care Director Of Golf Name Role Phone Unavailable Primary Care Provider [...]
[2025-06-30 10:53] LABS: Hematocrit 36.1 % (42.0-52.0); Hemoglobin 11.8 g/dL (14.1-18.0); Immature Granulocytes % 1.0 %; Mean Corpuscular HGB Conc 32.7 g/dL (31.8-35.4); Mean Corpuscular Hemoglobin 30.1 pg (27.0-31.2); Mean Corpuscular Volume 92.1 fl (80-94); Nucleated Red Blood Cells % 0 %; Platelet Count 141 K/mm3 (142-424); Red Blood Count 3.92 M/mm3 (4.60-6.20); Red Cell Distribution Width-SD 47.9 fL; White Blood Count 7.0 K/mm3 (4.8-10.8)
[2025-06-30 10:59] LABS: Albumin Level 4.2 g/dl (3.5-5.0); Chloride 107 mmol/L (98-107); Sodium 138 mmol/L (136-145)
[2025-06-30 11:02] LABS: Alanine Aminotransferase 23 U/L (12-78); Albumin/Globulin Ratio 1.5 (1.1-1.8); Alkaline Phosphatase 98 U/L (38-126); Aspartate Amino Transferase 34 U/L (17-59); Bilirubin,Total 0.4 mg/dl (0.2-1.3); Blood Urea Nitrogen 22 mg/dl (9-20); Calcium 9.6 mg/dl (8.4-10.2); Carbon Dioxide 27 mmol/L (22.0-30.0); Creatinine,Serum 1.30 mg/dl (0.66-1.25); Estimated Glomerular Filt Rate 53 ml/min (>60); GFR (African American) 64 ML/MIN (>60); Globulin 2.8 g/dL (1.3-3.2); Glucose 106 mg/dl (74-100); Total Protein,Serum 7.0 g/dl (6.3-8.2)
[2025-06-30 11:31] LABS: Anion Gap 8.6 mEq/L (5-15); Potassium 4.6 mmoL/L (3.5-5.1)
== END 2025-06-30 10:45 | disposition home or self-care (01) ==
LOC: INF 10:33
PROVIDERS: PCP Family Medicine; Visit Provider Internal Medicine Medical Oncology
DX: C78.00 Secondary malignant neoplasm of unspecified lung (principal)
CPT/HCPCS: 36415; 80053; 85025

== ENCOUNTER 2025-07-02 13:57 | Outpatient (CLI) | payer MEDICARE, OTHER, SELFPAY ==
--- OUTSIDE RECORDS SUMMARY | 2025-07-02 13:59 | XMS_ITS | Clinical Summary ---
Author Organization [facility] ystem Address [address] [place] [address] Care Team Providers Care Broth Setter Name Role Phone Unavailable Primary Care Provider [...]
--- OUTSIDE RECORDS SUMMARY | 2025-07-02 13:59 | XMS_ITS | Clinical Summary ---
Author Organization [employer] ([place], [place], [place], [place]) Address [address] [place] [address] Care Team Providers Care Doctor Of Nursing Practice Name Role Phone Unavailable Primary Care Provider [...] Date Abdulkadir rded Speak language other than Cambodian at home Not on file 11/22/2023 Want [...]
--- OUTSIDE RECORDS SUMMARY | 2025-07-02 13:59 | XMS_ITS | Encounter Summary ---
Author Organization Healthcare Address [address] [place] [address] Care Team Providers Care Softball Coach Name Role Phone None, None Primary Care Provider [phone] Encounter Details Date Type Department Care Team (Late st Contact Info) Description 10/22/2023 [facility] Community [facility] [address] [place] [address] Tatianna Champion MD [facility] [place] [address] Malignant melanoma, unspecified site (CMS/HCC) [...] Primary documented in this encounter Care Teams Softball Coach Relationship Specialty Start Date End Date None, None [address] [place], [place] [id number] PCP - General NONE FOUND 02/09/23 06/04/24 documented as of this encounter
--- OUTSIDE RECORDS SUMMARY | 2025-07-02 13:59 | XMS_ITS | Encounter Summary ---
Author Organization Healthcare Address [address] [place] [address] Care Team Providers Care Director It Name Role Phone None, None Primary Care Provider Reason for Referral * Imaging (Urgent) - Closed Specialty Diagnoses / Procedures Referred By Contac t Referred To Contact Radiology Diagnoses Malignant melanoma of scalp (CMS/HCC) Procedures MR Head w and wo IV Contrast Tatianna Champion MD [address] [place] [address] Phone: tel: fax: Referral ID Status Reason Start Date Expiration Date Visits Re quested Visits Authorized [id number] Closed 10/29/2023 04/29/2025 1 1 Encounter Details Date Type Department Care Team (Late st Contact Info) Description 10/29/2023 [facility] Community Practice [address] [place] [address] Tatianna Champion MD [address] [place] [address] Malignant melanoma of scalp (CMS/HCC) [...] subcortical andperiventricular white matter bilaterally. Well-defined hyperintense [id number] is seen in the left cerebellum with [...] (CMS/HCC) documented in this encounter Care Teams Director It Relationship Specialty Start Date End Date None, None [address] [place] [address] PCP - General NONE FOUND 02/09/23 06/04/24 documented as of this encounter
--- OUTSIDE RECORDS SUMMARY | 2025-07-02 13:59 | XMS_ITS | Referral Summary ---
Author Organization [employer] ([place], [place], [place], [place]) Address [address] [place] [address] Care Team Providers Care Wafer Fab Operator Name Role Phone Unavailable Primary Care [...] Date Abdulkadir rded Speak language other than [place]inean at home Not on file 11/22/2023 Want [...]
--- OUTSIDE RECORDS SUMMARY | 2025-07-02 13:59 | XMS_ITS | Clinical Summary ---
Author Organization Healthcare Address [address] [place] [address] Care Team Providers Care Row Boss Name Role Phone Unavailable Primary [...] UKY-Zoster Vaccines (2 of 3) 09/16/2017 07/22/2017 [id number] Vaccine (2023- season) 2024 09/05/2023, 06/18/2023, 09/25/2022, [...] age to complete this topic Insurance MEDICARE [facility] [place] [id number]
--- NOTE | 2025-07-02 14:00 | MR_ITS ---
PROCEDURE INFORMATION: Exam: MR Head Without and With Contrast Exam date and time: 07/02/2025 2:15 PM Age: 85 years old Clinical indication: Condition or disease; History of cancer (specify primary cancer site): ; Lung cancer eval for mets; Additional info: Evaluation of treatment TECHNIQUE: Imaging protocol: Magnetic resonance imaging of the head without and with contrast. Contrast material: PROHANCE; Contrast volume: 19 ml; Contrast route: IV; COMPARISON: MR HEAD/BRAIN WO/W CON 05/04/2025 9:23 AM FINDINGS: Brain: There is an expected degree of age-related volume loss and chronic microvascular ischemic changes. 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 No evidence of acute ischemia. No evidence of intracranial hemorrhage. No mass, mass effect or midline shift. No abnormal enhancement. 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 Cerebral ventricles: No hydrocephalus. Bones: No abnormal marrow signal. Paranasal sinuses: Clear as visualized. Mastoid air cells: Clear as visualized. Orbital cavities: Unremarkable. Soft tissues: Unremarkable. IMPRESSION: 1. No evidence of metastatic disease to the brain. 2. No significant change from the prior exam.
[2025-07-02] MEDS: GADOTERIDOL INJ 20ML SYRINGE 19 ML IV (15:11)
[2025-07-02] MEDS: SODIUM CHLORIDE 0.9% 10ML SYR (RAD ONLY) 10 ML IV (15:11)
== END 2025-07-02 23:59 | disposition home or self-care (01) ==
LOC: RAD 13:58
PROVIDERS: Visit Provider Internal Medicine Medical Oncology
DX: C78.00 Secondary malignant neoplasm of unspecified lung (principal); C43.9 Malignant melanoma of skin, unspecified
CPT/HCPCS: 70553; A9576

== ENCOUNTER 2025-08-10 09:46 | Outpatient (CLI) | payer MEDICARE, OTHER, SELFPAY ==
--- OUTSIDE RECORDS SUMMARY | 2025-08-10 09:59 | XMS_ITS | Clinical Summary ---
Author Organization [facility] ystem Address [address] [place] [address] Care Team Providers Care Lab Clerk Name Role Phone Unavailable Primary Care Provider [...] Adults (1 - 1-dose 75+ series) 7 INFLUENZA VACCINE 06/11/2025 COVID-19 Vaccine ( - 2023- season) 2025
--- OUTSIDE RECORDS SUMMARY | 2025-08-10 09:59 | XMS_ITS | Encounter Summary ---
Author Organization Healthcare Address [address] [place] [id number] Care Team Providers Care Machine Sign Writer Name Role Phone Unavailable Primary Care Provider Unavailabl e Reason for Referral * Imaging (Urgent) - Closed Specialty Diagnoses / Procedures Referred By Contac t Referred To Contact Radiology Diagnoses Malignant melanoma of scalp (CMS/HCC) Procedures MR Head w and wo IV Contrast Tatianna Champion MD [address] [place] [address] Phone: tel: fax: Referral ID Status Reason Start Date Expiration Date Visits Re quested Visits Authorized [id number] Closed 10/29/2023 04/29/2025 1 1 Encounter Details Date Type Department Care Team (Late st Contact Info) Description 10/29/2023 Community [facility] Community Practice [address] [place] [address] Tatianna Champion MD [address] [place] [phone] Malignant melanoma of scalp (CMS/HCC) (Primary Dx); [...] subcortical andperiventricular white matter bilaterally. 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
--- OUTSIDE RECORDS SUMMARY | 2025-08-10 09:59 | XMS_ITS | Clinical Summary ---
Author Organization Healthcare Address [address] [place] [address] Care Team Providers Care Factory Expert Name Role Phone Unavailable Primary Care Provider [...] UKY-Zoster Vaccines (2 of 3) 09/16/2017 07/22/2017 [id number] Vaccine (2024- season) 2025 09/05/2023, 06/18/2023, 09/25/2022, Additional history exists UKY-Influenza [...] age to complete this topic Insurance MEDICARE [facility] [place] [id number]
--- OUTSIDE RECORDS SUMMARY | 2025-08-10 09:59 | XMS_ITS | Encounter Summary ---
Author Organization Healthcare Address [address] [place] [address] Care Team Providers Care Duct Installer Name Role Phone Unavailable Primary Care Provider Unavailabl e Encounter Details Date Type Department Care Team (Late st Contact Info) Description 10/22/2023 Community Orders Community Practice [address] [place] [address] Tatianna Champion MD [facility] [place] [address] Malignant melanoma, unspecified site (CMS/HCC) [...]
[2025-08-10 10:40] LABS: Blood Urea Nitrogen 17 mg/dl (9-20); Creatinine,Serum 1.20 mg/dl (0.66-1.25); Estimated Glomerular Filt Rate 58 ml/min (>60); GFR (African American) 70 ML/MIN (>60)
== END 2025-08-10 23:59 | disposition home or self-care (01) ==
LOC: LAB 09:48
PROVIDERS: PCP Family Medicine; Visit Provider Internal Medicine
DX: C43.39 Malignant melanoma of other parts of face (principal)
CPT/HCPCS: 36415; 82565; 84520

== ENCOUNTER 2025-10-13 08:19 | Outpatient (CLI) | payer MEDICARE, OTHER, SELFPAY ==
--- OUTSIDE RECORDS SUMMARY | 2025-10-13 08:24 | XMS_ITS | Encounter Summary ---
Author Organization Healthcare Address [address] [id number] Care Team Providers Care Tangible Personal Property Appraiser Name Role Phone Unavailable Primary Care Provider Unavailabl e Reason for Referral * Imaging (Urgent) - Closed Specialty Diagnoses / Procedures Referred By Contac t Referred To Contact Radiology Diagnoses Malignant melanoma of scalp (CMS/HCC) Procedures MR Head w and wo IV Contrast Tatianna Champion MD [address] [place] [address] Phone: tel: fax: Referral ID Status Reason Start Date Expiration Date Visits Re quested Visits Authorized [id number] Closed 10/29/2023 04/29/2025 1 1 Encounter Details Date Type Department Care Team (Late st Contact Info) Description 10/29/2023 Community [facility] Community Practice [address] [place] [address] Tatianna Champion MD [address] [place] [address] Malignant melanoma of scalp (CMS/HCC) [...] subcortical andperiventricular white matter bilaterally. Well-defined hyperintense [id number] is seen in the left cerebellum with [...]
--- OUTSIDE RECORDS SUMMARY | 2025-10-13 08:24 | XMS_ITS | Clinical Summary ---
Author Organization [facility] ystem Address [address] [place] [address] Care Team Providers Care Physical Education Specialist Name Role Phone Unavailable Primary Care Provider [...]
--- OUTSIDE RECORDS SUMMARY | 2025-10-13 08:24 | XMS_ITS | Encounter Summary ---
Author Organization Healthcare Address [address] [place] [address] Care Team Providers Care Criminal Justice Teacher Name Role Phone Unavailable Primary Care Provider Unavailabl e Encounter Details Date Type Department Care Team (Late st Contact Info) Description 10/22/2023 Community Orders Community Practice [address] [place] [address] Tatianna Champion MD [facility] [place] [address] Malignant melanoma, unspecified site [...]
--- OUTSIDE RECORDS SUMMARY | 2025-10-13 08:24 | XMS_ITS | Clinical Summary ---
Author Organization Healthcare Address [address] [place] [address] Care Team Providers Care [employer] Hat Open Stack Administrator Name Role Phone Unavailable Primary Care Provider [...] Screening 1940 UKY-Medicare Annual Wellness (AWV) 1940 UKY-/Child/Adol SDOH Screenings 1942 UKY-Obesity Intervention 1948 UKY- SDOH Screenings 1960 UKY-Adult SDOH Screenings 1960 UKY-RSV Vaccine: 60+ Years or (1 - 1-dose 75+ series) 2017 UKY-Zoster Vaccines (2 of 3) 09/16/2017 07/22/2017 [id number] Vaccine (2024- season) 2025 09/05/2023, 06/18/2023, 09/25/2022, [...] age to complete this topic Insurance MEDICARE [facility] [place] [id number]
--- NOTE | 2025-10-13 08:30 | MR_ITS ---
FINAL REPORT TECHNIQUE: Multiplanar and multisequence imaging of the brain was obtained before and after contrast administration. CLINICAL HISTORY: lung cancer COMPARISON: 07/02/2025 FINDINGS: There is no mass effect or midline shift. There are bilateral periventricular and subcortical foci of T2 abnormality. There is new, subcortical T2 abnormality in the left parietal lobe and within the posterior right temporal lobe. There is no hydrocephalus. Brainstem and cerebellum demonstrate normal signal intensity. There is no restricted diffusion to suggest acute ischemia. There is a small amount of fluid in the left mastoid air cells. Paranasal sinuses are clear. Postcontrast imaging demonstrates a developmental venous anomaly in the posterior right frontal lobe. There are 2 new enhancing lesions 1 measuring 10 mm in the posterior right temporal lobe and a 9 mm lesion in the left parietal lobe consistent with brain metastasis. IMPRESSION: 1. New bilateral enhancing intra-axial lesions most consistent with brain metastasis. New T2 abnormality is surrounding cerebral edema. 2. Otherwise stable exam. Reviewed, Interpreted and Dictated by Love Rueda MD Transcribed by Edilma Lizarraga Authenticated and [facility]
[2025-10-13 08:43] LABS: Blood Urea Nitrogen 17 mg/dl (9-20); Creatinine,Serum 1.30 mg/dl (0.66-1.25); Estimated Glomerular Filt Rate 53 ml/min (>60); GFR (African American) 64 ML/MIN (>60)
[2025-10-13] MEDS: GADOTERIDOL INJ 20ML SYRINGE 18 ML IV (09:21)
[2025-10-13] MEDS: SODIUM CHLORIDE 0.9% 10ML SYR (RAD ONLY) 10 ML IV ×2 (09:21→09:44)
--- NOTE | 2025-10-13 09:30 | CT_ITS ---
FINAL REPORT TECHNIQUE: Thin section axial images are obtained through the abdomen and pelvis after intravenous contrast. Reconstruction images were obtained from the axial data. This study was performed with techniques to keep radiation doses as low as reasonably achievable (ALARA). Individualized dose reduction techniques using automated exposure control or adjustment of mA and/or kV according to the patient's size were employed. CLINICAL HISTORY: Lung Cancer COMPARISON: 06/17/2025 FINDINGS: LIVER: Homogeneous. No focal lesion. GALLBLADDER/BILIARY SYSTEM: Gallbladder is present. There is gallbladder wall thickening which could be due to contracted state. No gallstones. No biliary dilatation. SPLEEN: Unremarkable. PANCREAS: Unremarkable. ADRENALS: Unremarkable. KIDNEYS/URETERS/BLADDER: There is no hydronephrosis. There is a 10 mm hypodense left renal lesion which is unchanged measuring 11 mm. No other renal lesions are identified. Urinary bladder is unremarkable. GI TRACT: Large amount of retained stool. No small bowel obstruction or dilatation. Normal appendix. No acute colon abnormality. PELVIC ORGANS: Prostate is mildly enlarged. LYMPH NODES/RETROPERITONEUM/MESENTERY: No lymphadenopathy. No abdominal aortic aneurysm. ABDOMINAL WALL: There are bilateral inguinal hernias. Hernia on the right contains a loop of small bowel which extends into the orifice of the hernia. Hernia on the left contains only fat. FREE FLUID: No ascites. BONES: No acute osseous abnormality. IMPRESSION: 1. Stable, hypodense left renal lesion which is indeterminate. In retrospect, this is likely stable from January 2025. 2. Constipation. Reviewed, Interpreted and Dictated by Love Rueda MD Transcribed by Edilma Lizarraga Authenticated and [facility]
--- NOTE | 2025-10-13 09:30 | CT_ITS ---
FINAL REPORT TECHNIQUE: Thin section axial images were obtained from the thoracic inlet through the upper abdomen after intravenous contrast injection. Reconstruction images were obtained from the axial data. This study was performed with techniques to keep radiation doses as low as reasonably achievable (ALARA). Individualized dose reduction techniques using automated exposure control or adjustment of mA and/or kV according to the patient's size were employed. CLINICAL HISTORY: Lung Cancer COMPARISON: 06/17/2025 FINDINGS: There is no axillary lymphadenopathy. There is a right paratracheal lymph node which has decreased in size now measuring 21 mm, previously measured 39 mm. There is no hilar lymphadenopathy. There is no pleural or pericardial effusion. There is a right lower lobe pulmonary nodule measuring 14 x 17 mm, previously measured 14 x 12 mm. There are several additional, very small right lower lobe nodules which are subjectively larger. For example there is a 3 mm nodule seen on series 4 image 60 which appears larger. No additional pulmonary nodules are seen. There is no acute osseous abnormality. IMPRESSION: 1. Mixed response with improved lymphadenopathy but increase in size of right lower lobe pulmonary nodule. 2. Possible increase in additional, very small right lower lobe pulmonary nodules. Reviewed, Interpreted and Dictated by Love Rueda MD Transcribed by Edilma Lizarraga Authenticated and [facility]
[2025-10-13] MEDS: IOPAMIDOL-370 (76%);100ML BOTTLE 75 ML IV (09:44)
== END 2025-10-13 23:59 | disposition home or self-care (01) ==
LOC: RAD 08:21
PROVIDERS: PCP Family Medicine; Visit Provider Internal Medicine Medical Oncology
DX: C78.01 Secondary malignant neoplasm of right lung (principal); N28.9 Disorder of kidney and ureter, unspecified; K59.00 Constipation, unspecified; G93.89 Other specified disorders of brain; R59.0 Localized enlarged lymph nodes; R91.8 Other nonspecific abnormal finding of lung field; R90.89 Other abnormal findings on diagnostic imaging of central nervous system
CPT/HCPCS: 36415; 70553; 71260; 74177; 82565; 84520; A9576; Q9967